=== PATIENT | female | born 1970 | race African-American/Black ===

== ENCOUNTER 2024-04-23 21:49 | Emergency (ER) | payer SELFPAY ==
--- NOTE | ~2024-04-23 | XR_ITS ---
CHEST RADIOGRAPH, PA AND LATERAL CLINICAL HISTORY: cp left side, sob . COMPARISON: 05/05/2017 TECHNIQUE: PA and lateral views of the chest. FINDINGS The left mid lung is partially obscured due to pacemaker generator. Wires project over the right atrium and right ventricle. The remainder of the cardiomediastinal silhouette is otherwise unremarkable. The lungs are clear. Visualized osseous structures and soft tissues are unremarkable. IMPRESSION: No focal infiltrate or effusion. Reviewed, dictated and finalized at location A. [employer]
--- OUTSIDE RECORDS SUMMARY | 2024-04-23 21:51 | XMS_ITS | Continuity of Care Document ---
Author Organization [facility] Address [address] [facility] [place] [address] Phone Care Team Providers Care Cutting Machine Fixer Name Role Phone Cezar Terrell MD Unavailable Unavailable Allergies, Adverse Reactions, Alerts Substance Reaction Status Criticality shellfish derived (moderate) Active No Informa tion Medications Medication Instructions Dosage Effective Dates (start - stop) Status Comments Vicodin ES 7.5 mg-750 mg tablet take 1 tablet by oral route every 6 hours - Active avoid driving or operate machines, max 3/24 hours Flexeril 10 mg tablet take 1 tablet (10MG) by oral route every bedtime 10 MG - Active Procedures Procedure Date OFFICE/OUTPATIENT VISIT, EST OFFICE/OUTPATIENT VISIT, EST PREV VISIT, NEW, AGE 40-64 Advance Directives Directive Yes / No Effective Date File Name No Information Encounters Encounter Description Practice Location Reason(s) For Visit Diagnoses Date Provider Providers Copied on Encounter [facility], [address] [place], [place], [id number], tel:[phone] [facility] No Information 3 Xander Robb. [address] [facility] [place], [id number] , [place]. tel:[phone] Referring Provider: Cezar Terrell, [address] [facility] [place], [place], [place], [id number]. tel:[phone] OFFICE/OUTPA TIENT VISIT, EST [facility], [address] [place], [id number], tel:[phone] [facility] chronic pain (chief complaint) Dietary surveillance and counselingCHRON IC PAIN NEC 3 Xander Robb. [address] [place], [place], [id number] , . tel:[phone] Referring Provider: Edwin Randolph [place], [id number]. tel:[phone] OFFICE/OUTPA TIENT VISIT, EST [facility], [address] [place], [place], [id number], tel:[phone] [facility] hyperglycemia (chief complaint)advanced practice provider sai pain (chief complaint)anxi ety (chief complaint) Dietary surveillance and counselingCHRON IC PAIN NECHyperglycemi aOther and unspecified hyperlipidemiaG eneralized anxiety disorder 3 Xander Barnes [address] [place], [place], [id number] , . tel:[phone] Referring Provider: Edwin Randolph [place], [place], [id number]. tel:[phone] PREV VISIT, NEW, AGE 40-64 [facility], [facility] [place], [id number], tel:[phone] [facility] Physical (chief complaint) Dietary surveillance and counselingRouti ne Medical ExamRoutine Medical Exam 3 Xander Barnes [address] [place], [place], [id number] , [place]. tel:[phone] Family History Family Member Type Diagnosis Age At Onset Father Problem (finding) Hypertension Sister Problem (finding) Stroke Father Problem (finding) Hyperlipidemia Father Problem (finding) Diabetes mellitus Father Problem (finding) Coronary artery disease Payers Payer name Insurance type Covered libertarian ID Authoriza tion(s) No Information Social History Type Description Quantity Date Captured Comments Sex Female Smoking Status No Information Chief Complaint And Reason For Visit No Information Plan Of Treatment Date Type Action Status Referral Referred To: Physical Therapy Ordered: Referral: Physical Therapy. Evaluate and treat. ordered History Of Present Illness Encounter Date Complaint History Of Prese nt Illness No Information Instructions Date Instruction Additional Infor nabeel Decrease caloric intake Related to Dietary surveillance counseling Dietary counseling Related to Di etary surveillance counseling Decrease caloric intake Related to Dietary surveillance counseling Dietary counseling Related to Di etary surveillance counseling Decrease caloric intake Related to Dietary surveillance counseling Dietary counseling Related to Di etary surveillance counseling Assessments Type Assessment Date No Information
--- OUTSIDE RECORDS SUMMARY | 2024-04-23 21:51 | XMS_ITS | Clinical Summary ---
Author Organization [facility] Address [address] [place] [address] Care Team Providers Care Bottom Sander Name Role Phone Sabina Riggs MD Unavailable Elizabeth Pollard MD Primary Care Provider [phone] Allergies Active Allergy Reactions Criticality Noted Date Comments Shellfish Allergy Anaphylaxis High 10/04/2016 Swelling tongue and all over Shellfish-Derived Products Anaphylaxis High 08/26/19 16 Swelling tongue and all over Medications sotalol (BETAPACE) 80 MG tablet Take 1 tablet by mouth 2 (two) times daily. Active metFORMIN (GLUCOPHAGE) 500 MG tablet Take 500 mg by mouth 2 (two) times daily. Active insulin glargine (LANTUS) 100 UNIT/ML injection (VIAL) Lantus (insulin glargine) solution 100 unit/mL; take 15 unit subcutaneous injection at bedtime; 0; -Aug-2015; Active Active furosemide (LASIX) 80 MG tablet Take 1 tablet by mouth daily. Active Magnesium Oxide 400 MG Cap Take 1 tablet by mouth 2 (two) times daily. Active albuterol sulfate HFA (PROAIR HFA) 108 (90 BASE) MCG/ACT inhaler Take 2 puffs by mouth 4 (four) times daily as needed. Active spironolactone 25 MG tablet Take 1 tablet by mouth daily. Active OMEPRAZOLE 20 MG capsule TAKE ONE CAPSULE BY MOUTH EVERY DAY 30 capsule 1 017 Active amlodipine 10 MG tablet Take 10 mg by mouth daily. 017 Active traMADol 50 MG tablet Take 50 mg by mouth 2 (two) times daily as needed for Pain. Active atorvastatin 20 MG tablet Take 20 mg by mouth daily. Active lisinopril 20 MG TABS 20 mg, hydrochlorothiazide 25 MG TABS 25 mg Take 1 tablet by mouth daily. Active rivaroxaban 20 MG Tab tablet Take 20 mg by mouth daily with supper. Take with food Active cyclobenzaprine 10 MG tablet Take 1 tablet (10 mg total) by mouth 3 (three) times daily as needed for Muscle Spasms. 16 tablet 019 Active hydrocodone-acetaminop hen (NORCO) 5-325 MG tablet Take 1-2 tablets by mouth every 6 (six) hours as needed for Pain. 16 tablet 019 Active promethazine 6.25 MG/5ML syrup TK 10 ML PO QID FOR 10 DAYS UTD 1 019 Active phenazopyridine 100 MG tablet TK 2 T PO TID 0 019 Active oseltamivir 75 MG capsule TK 1 C PO BID FOR 5 DAYS 0 019 Active montelukast 10 MG tablet Take 10 mg by mouth daily. 0 019 Active lisinopril 20 MG tablet Take 20 mg by mouth daily. 4 018 Active gabapentin 300 MG capsule TK 1 C PO TID UTD 9 019 Active vitamin D2, ergocalciferol, 84611 UNITS capsule Take 50,000 Units by mouth every 7 days. 9 019 Active carvedilol 3.125 MG tablet Take 3.125 mg by mouth 2 (two) times daily. 3 018 Active atorvastatin 40 MG tablet Take 40 mg by mouth nightly at bedtime. 9 019 Active Insulin Syringe-Needle U-100 (INSULIN SYRINGE .3CC/GX1/2 ) 29G X 1/2 0.3 ML Misc USE 1 PER DAY 1 019 Active B-D UF III MINI PEN NEEDLES 31G X 5 MM Misc daily. 0 019 Active diclofenac EC 50 MG tablet Take 1 tablet (50 mg total) by mouth 2 (two) times daily as needed. 20 tablet 019 Active diclofenac EC 75 MG tablet Take 1 tablet (75 mg total) by mouth 2 (two) times daily as needed. 30 tablet 019 Active acetaminophen 325 MG tablet Take 2 tablets (650 mg total) by mouth every 4 (four) hours as needed for Pain. 30 tablet 020 Active promethazine-codeine 6.25-10 MG/5ML syrupIndications:Cough Take 5 mLs by mouth every 4 (four) hours as needed for Cough. Indications: Cough 80 mL Active azithromycin 250 MG tablet Take 2 tablets by mouth on day one then 1 daily for four days. 6 tablet 020 Active guaifenesin-codeine (GUAIFENESIN AC) 100-10 MG/5ML syrupIndications:Cough Take 5 mLs by mouth every 4 (four) hours as needed for Cough. Indications: Cough 118 mL 020 Active ondansetron 4 MG disintegrating tablet Take 1 tablet (4 mg total) by mouth every 8 (eight) hours as needed for Nausea. 20 tablet 021 Active Active Problems Problem Noted Date Diagnosed Date HGSIL (high grade squamous i ntraepithelial lesion) on Pap smear of cervix 09/25/2018 Cervicalgia 06/13/2017 Atrial flutter (CMS/HCC HHS/HCC) Paroxysmal atrial fibrillation (CMS/HCC HHS/HCC) Sick sinus syndrome (CMS/HCC HHS/HCC) Supraventricular tachycardia (CMS/HCC HHS/HCC) CAD (coronary artery disease) Essential hypertension Hypercholesteremia Hyperlipidemia Family History Medical History Relation Comments Stent Cardiac Brother Diabetes Father Hypertension Father Diabetes Mother Heart Attack Mother Hypertension Mother CABG Sister 1 Stent Cardiac Sister 1 Stroke Sister 1 Valve Disease Sister 1 CABG Sister 2 Stent Cardiac Sister 2 Stroke Sister 2 Relation Status Comments Brother Father Mother Sister 1 Sister 2 Social History Tobacco Use Types Packs/Day Years Used Date Smoking Tobacco: Former Smokeless Tobacco: Never Alcohol Use Standard Drinks/Week Comments No 0 (1 standard drink = 0.6 oz pur e alcohol) Comments No Sex and Gender Information Value Date Recorded Sex Assigned at Not on file Legal Sex Female 10:24 PM CDT Gender Identity Not on file Sexual Orientation Not on file Occupation Industry Job Start Date Job End Date Not on file Not on file Not on file Not on file Last Filed Vital Signs Vital Sign Reading Time Taken Comments Blood Pressure 140/95 11/23/2020 8:34 PM CDT Pulse 84 11/23/2020 8:34 PM CDT Temperature 36.1 C (97 F) 11/23/2020 8:34 PM CDT Respiratory Rate 18 11/23/2020 8:34 PM CDT Oxygen Saturation 100% 11/23/2020 8:34 PM CDT Inhaled Oxygen Concentration - - Weight 121.6 kg (268 lb) 11/23/2020 8:34 PM CDT Height 157.5 cm (5' 2 ) 11/23/2020 8:34 PM CDT Body Mass Index 49.02 11/23/2020 8:34 PM CDT Plan of Treatment Health Maintenance Due Date Last Done Comments ASCVD LDL 1970 ASCVD Statin 1970 Cervical Cancer Screening Pap Smear (Age 30 to 64) Every 3 Years 1970 Colorectal Cancer Screening Colonoscopy (10 Years) 1970 Annual Physical 1973 Pneumococcal Vaccine: Pediatrics (0 to 5 Years) and At-Risk Patients (6 to 64 Years) (1 of 2 - PCV) 1976 Hepatitis C 1988 Hepatitis B Vaccines (1 of 3 - 19+ 3-dose series) 1989 Cervical Cancer Screening Pap with HPV Testing (Age 30 to 64) Every 5 Years 2000 Cervical Cancer Screening with HPV 2000 Mammogram Screening 2010 Zoster Vaccines (1 of 2) 2020 COVID-19 Vaccine (3 - season) 2023 07/17/2020, 06/24/2020 Influenza Adult (#1) 2023 01/19/2021, 01/06/2020, 05/07/2017, Additional history exists DTaP, Tdap and Td Vaccines (2 - Td or Tdap) 07/25/2024 07/25/2014 Meningococcal Vaccine Aged Out 06/24/2020, 021 No longer eligible based on patient's age to complete this topic Meningococcal B Vaccine Aged Out No l onger eligible based on patient's age to complete this topic RSV Immunizations Under 20 Months Aged Out No longer eligible based on patient's age to complete this topic Medical Devices Implanted Type Area Spa Attendant Device Identifier Shelf Expiration Date Model / Serial / Lot Atrial Lead-12/18/2012 Implanted:12/18 (Quantity not on file) Lead Implant [employer] [facility] DIV [employer] 1998 / [id number] / Description:Dr Giovanni Hassan Ventricular Lead-12/18/2012 Implanted:12/18 (Quantity not on file) Lead Implant [employer] [facility] [employer] [id number] / [id number] / Description:Dr Giovanni Hassan [employer] Pacemaker-2012 Implanted:12/18 (Quantity not on file) Pacemaker [employer] DIV [employer] 2209 / [id number] / Description:Dr Giovanni Hassan Insurance [facility] Advance Directives Documents on File Type Date Recorded 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
--- OUTSIDE RECORDS SUMMARY | 2024-04-23 21:51 | XMS_ITS | Encounter Summary ---
Author Organization [facility] Address [address] [place] [address] Care Team Providers Care Conduit Helper Name Role Phone Elizabeth Pollard MD Primary Care Provider [phone] Encounter Details Date Type Department Care Team (Late st Contact Info) Description 06/16/2020 Telephone [facility]ne[facility] Clinic [address] [facility] 3rd Floor [address] [place] [address] Roula Goel Social History Tobacco Use Types Packs/Day Years Used Date Smoking Tobacco: Former Cigarettes 0.1 13 1 993 - 2006 Smokeless Tobacco: Never Alcohol Use Standard Drinks/Week Comments Yes 0 (1 standard drink = 0.6 oz pur e alcohol) occassionally AUDIT-C Answer Date Recorded Q1: How often do you have a drink containing alc ohol? Monthly or less 05/30/2020 Q2: How many drinks containi ng alcohol do you have on a typical day when you are drinking? 1 or 2 05/30/2020 Q3: How often do you have si x or more drinks on one occasion? 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 Author CCM Chronic Pain Care Plan Chronic Care Management No Honey canela, Aleshia Olmedo, RN Note: Problem: Chronic Pain Goals: 1. Minimize further functional decline 2. Maximize quality of life 3. Control pain Strategies: - Activity/exercise program recommendation - Conservative stepwise pain medicine strategy with multi-disciplinary approach - Recommend healthy lifestyle strategies and compensatory methods as needed Reduce the likelihood of falling Lifestyle No Honey canela, Aleshia Olmedo RN Note: Below are four things you can do to prevent falls: Begin an exercise program to improve your leg strength & balance Ask your doctor or pharmacist to review your medicines Get annual eye check-ups & update your eyeglasses Make your home safer by: Removing clutter & tripping hazards Putting railings on all stairs & adding grab bars in the bathroom Having good lighting, especially on stairs Contact your local community or [facility] for information on exercise, fall prevention programs, or options for improving home safety. documented as of this encounter Visit Diagnoses Not on filedocumented in this encounter Additional Health Concerns Infection Onset Date Last Indicated Resolved Time COVID: Suspected 03/22/2021 03/22/2021 04/05/2021 3:05 AM ROLLER SKATES ASSEMBLER documented as of this encounter Care Teams Conduit Helper Relationship Specialty Start Date End Date Elizabeth Pollard MD [address] [facility] [place] [address] PCP - General Internal Medicine 09/07/19 documented as of this encounter
--- OUTSIDE RECORDS SUMMARY | 2024-04-23 21:51 | XMS_ITS | Clinical Summary ---
Author Organization [facility] Address [address] [place] [address] Care Team Providers Care Sugar Grinder Name Role Phone Matt Barnes MD Primary Care Provider [phone] Source Comments [facility],non-owned Affiliates and Associated Physician Practices is amultiple site organization consisting of ambulatory clinics and hospital sitesin [place], [place] and [place]. This disclosure is being madepursuant to the Care Everywhere program and may not contain all information available regarding this patient. Last updated 17.[facility] Allergies Active Allergy Reactions Criticality Noted Date Comments Shellfish Allergy Anaphylaxis High 10/04/2016 Swelling tongue and all over Medications * Be aware that medications may not be up to date on this document. Alwaysverify current medications with the patient. Medication Sig Dispensed Refills Start Date End Date Status rivaroxaban (XARELTO) 10 MG tablet Take 10 mg by mouth daily with dinner. 10/04/2016 Active lisinopril (PRINIVIL; ZESTRIL) 10 MG tablet Take 10 mg by mouth DAILY. 09/27/2016 Active spironolactone (ALDACTONE) 25 MG tablet Take 25 mg by mouth DAILY. 09/27/2016 Active atorvastatin (LIPITOR) 40 MG tablet Take 40 mg by mouth DAILY. 09/27/2016 Active potassium chloride SA (MICRO-K8) 8 MEQ capsule Take 10 mg by mouth DAILY. 09/27/2016 Active sotalol (BETAPACE) 80 MG tablet Take 80 mg by mouth BID. 09/27/2016 Active metFORMIN (GLUCOPHAGE) 500 MG tablet Take 500 mg by mouth 2 times daily with morning and evening meal. 09/27/2016 Active furosemide (LASIX) 40 MG tablet Take 40 mg by mouth DAILY. 09/27/2016 Active omeprazole EC (PRILOSEC OTC) 20 MG tablet Take 20 mg by mouth DAILY. 09/27/2016 Active insulin glargine (LANTUS) vial Inject 12 Units subcutaneously. 09/27/2016 Active amLODIPine (NORVASC) 10 MG tablet Take 10 mg by mouth DAILY. 09/27/2016 Active albuterol HFA (PROAIR HFA) 108 (90 BASE) MCG/ACT inhaler Inhale 2 puffs by mouth q6h PRN (Wheezing). 06/13/2017 Active traMADol (ULTRAM) 50 MG tablet Take 50 mg by mouth q6h PRN (Pain). 06/13/2017 Active ibuprofen (MOTRIN) 600 MG tablet Take 1 tablet by mouth every 6 hours as needed for Pain 50 tablet 09/10/2017 Active Additional Information Patient not taking.Reported on 04/13/2019 carvedilol (COREG) 6.25 MG tablet Take 6.25 mg by mouth 2 times daily with morning and evening meal Active cyclobenzaprine (FLEXERIL) 10 MG tablet Take 10 mg by mouth 3 times daily as needed for Muscle Spasms Active gabapentin (NEURONTIN) 400 MG capsule Take 400 mg by mouth 3 times daily Active magnesium oxide (MAGOX 400) 400 (241.3 Mg) MG tablet Take 400 mg by mouth once daily Active cyclobenzaprine (FLEXERIL) 10 MG tablet Take 1 tablet by mouth 3 times daily as needed for Muscle Spasms 15 tablet 04/28/2019 Active Active Problems Problem Noted Date Diagnosed Date Leiomyoma of uterus 06/13/2017 Excessive and frequent menstruation with regular cycle 06/13/2017 Cervicalgia 06/13/2017 HGSIL (high grade squamous i ntraepithelial lesion) on Pap smear of cervix Social History Tobacco Use Types Packs/Day Years Used Date Smoking Tobacco: Former Cigarettes Q uit: 2005 Smokeless Tobacco: Never Alcohol Use Standard Drinks/Week Comments No 0 (1 standard drink = 0.6 oz pur e alcohol) Sex and Gender Information Value Date Recorded Sex Assigned at Not on file Gender Identity Not on file Sexual Orientation Not on file Last Filed Vital Signs Vital Sign Reading Time Taken Comments Blood Pressure 137/74 04/28/2019 3:09 AM NON DESTRUCTIVE EVALUATION TECHNICIAN Pulse 82 04/28/2019 3:09 AM NON DESTRUCTIVE EVALUATION TECHNICIAN Temperature 36.4 C (97.6 F) 04/28/2019 3:09 AM NON DESTRUCTIVE EVALUATION TECHNICIAN Respiratory Rate 18 04/28/2019 3:09 AM NON DESTRUCTIVE EVALUATION TECHNICIAN Oxygen Saturation 99% 04/28/2019 3:09 AM NON DESTRUCTIVE EVALUATION TECHNICIAN Inhaled Oxygen Concentration - - Weight 123.8 kg (273 lb) 04/13/2019 10:57 AM NON DESTRUCTIVE EVALUATION TECHNICIAN Height 157.5 cm (5' 2 ) 04/13/2019 10:57 AM NON DESTRUCTIVE EVALUATION TECHNICIAN Body Mass Index 49.93 04/13/2019 10:57 AM NON DESTRUCTIVE EVALUATION TECHNICIAN Plan of Treatment Health Maintenance Due Date Last Done Comments COLOGUARD (AGES 45-75) - COLON CA SCREENING 1970 COLON MONITORING 1970 COLONOSCOPY - COLON CA SCREENING 1970 CT COLONOGRAPHY - COLON CA SCREENING 1970 Colorectal Cancer Screening 1970 FIT - COLON CA SCREENING 1970 FLEX SIG - COLON CA SCREENING 1970 MAMMOGRAM 1970 PAP SMEAR 1970 HIV SCREENING 1985 HEPATITIS C SCREENING 03/28/1988 DTAP/TDAP/TD VACCINES (1 - Tdap) 1989 HEPATITIS B VACCINE (1 of 3 - 19+ 3-dose series) 1989 PNEUMOCOCCAL VACCINE 50+ (1 of 1 - PCV) 2020 ZOSTER VACCINE (1 of 2) 2020 SCREENING FOR DIABETES 04/28/2022 0, 09/10/2017, 09/10/2017, Additional history exists COVID-19 VACCINE ( - 2023- season) 2023 INFLUENZA VACCINE (#1) 2023 DEPRESSION SCREENING 03/18/2024 HIB VACCINE Aged Out No longer eligi ble based on patient's age to complete this topic HPV VACCINE Aged Out No longer eligi ble based on patient's age to complete this topic MENINGOCOCCAL (Group B) VACCINE Aged Out No longer eligible based on patient's age to complete this topic MENINGOCOCCAL VACCINE Aged Out No bret zoey eligible based on patient's age to complete this topic PNEUMOCOCCAL VACCINE Aged Out No long er eligible based on patient's age to complete this topic Procedures Procedure Name Priority Date/Time Associated Diagnosis Comments BASIC METABOLIC PANEL (CALCIUM TOTAL) STAT 04/28/2019 12:48 AM NON DESTRUCTIVE EVALUATION TECHNICIAN from Last 3 Months or Most Recently Relevant to Health Maintenance Results * (ABNORMAL) BASIC METABOLIC PANEL (CALCIUM TOTAL) (04/28/2019 12:48 AM NON DESTRUCTIVE EVALUATION TECHNICIAN) Glucose 397(H) 70 - 105 mg/dL 04/28/2019 1:12 AM NON DESTRUCTIVE EVALUATION TECHNICIAN [facility] Sodium 137 136 - 145 mmol/L 04/28/2019 1:12 AM NON DESTRUCTIVE EVALUATION TECHNICIAN [facility] Potassium 3.9 3.5 - 5.1 mmol/L 04/28/2019 1:12 AM [facility] Chloride 102 98 - 107 mmol/L 04/28/2019 1:12 AM [facility] CO2 24 23 - 31 mmol/L 04/28/2019 1:12 AM [facility] Calcium 9.4 8.4 - 10.4 mg/dL 04/28/2019 1:12 AM [facility] Anion Gap 11 8 - 16 mmol/L 04/28/2019 1:12 AM [facility] BUN 9 7 - 18.7 mg/dL 04/28/2019 1:12 AM [facility] Creatinine 0.92 0.57 - 1.11 mg/dL 04/28/2019 1:12 AM [facility] eGFR by MDRD >60 >60 mL/min/1.7 3m2 04/28/2019 1:12 AM [facility] eGFR by MDRD >60 >60 mL/min/1.7 3m2 04/28/2019 1:12 AM [facility] Blood BLOOD SPECIMEN / Unknown Venipuncture / Unknown 04/28/2019 12:48 AM NON DESTRUCTIVE EVALUATION TECHNICIAN 04/28/2019 12:58 AM NON DESTRUCTIVE EVALUATION TECHNICIAN Del Price PA-C LAB - CHEMISTRY ORD ERABLES [facility] [address] [place] [address] from Last 3 Months or Most Recently Relevant to Health Maintenance Care Teams Sugar Grinder Relationship Specialty Start Date End Date Matt Barnes MD PCP - General 09/16/17
--- OUTSIDE RECORDS SUMMARY | 2024-04-23 21:51 | XMS_ITS | Referral Summary ---
Author Organization [facility] Address [address] [place] [id number] Care Team Providers Care Tray Filler Name Role Phone Elizabeth Pollard MD Primary Care Provider [phone] Allergies Active Allergy Reactions Criticality Noted Date Comments Empagliflozin Hives Medium 10/21/2020 Shellfish Anaphylaxis High 10/04/2016 Diffuse swelling and to tongue. Medications alcohol swabs pads, medicatedIndicati ons:Type 2 diabetes mellitus without complication, with long-term current use of insulin ([facility]) ([facility]) Use to swabs daily to clean area 200 each 5 1 Active blood-glucose meter miscIndications:T ype 2 diabetes mellitus without complication, with long-term current use of insulin ([facility]) ([facility]) Test blood glucose twice a day 1 each 1 Active ergocalciferol (VITAMIN D) 50,000 unit capsuleIndication s:Vitamin D Deficiency Take 1 capsule (50,000 Units total) by mouth every 7 days On Fridays 12 capsule 1 2 Active TRUEplus Pen Needle 31 gauge x 3/16 needle USE DIRECTED TWO TIMES A DAY 2 Active albuterol HFA (PROVENTIL HFA,VENTOLIN HFA,PROAIR HFA) 90 mcg/actuation inhaler Inhale 2 puffs every 6 (six) hours as needed for wheezing 1 each 3 2 Active ezetimibe (ZETIA) 10 mg tablet Take 1 tablet (10 mg total) by mouth daily 90 tablet 1 2 Active fluticasone propionate (FLONASE) 50 mcg/actuation nasal spray Administer 1 spray into each nostril daily 1 each 5 2 Active furosemide (LASIX) 80 mg tabletIndications :Edema Take 1 tablet (80 mg total) by mouth every morning 90 tablet 1 2 Active gabapentin (NEURONTIN) 600 mg tabletIndications :Neuropathic Pain Take 1 tablet (600 mg total) by mouth 2 (two) times a day 180 tablet 1 2 Active insulin glargine (LANTUS) 100 unit/mL (3 mL) pen for injectionIndicati ons:Type 2 diabetes mellitus with peripheral neuropathy ([facility]) Inject 38 Units under the skin 2 (two) times a day 30 mL 3 2 Active lisinopril-hydroC HLOROthiazide (ZESTORETIC) 20-25 mg per tabletIndications :Hypertension, essential Take 1 tablet by mouth nightly 90 tablet 1 2 Active magnesium oxide 400 mg magnesium capsule Take 1 tablet by mouth 2 (two) times a day 180 capsule 1 2 Active metFORMIN (GLUCOPHAGE) 500 mg tabletIndications :type 2 diabetes mellitus Take 1 tablet (500 mg total) by mouth 2 (two) times a day with meals 180 tablet 1 2 Active metoclopramide (REGLAN) 5 mg tablet Take 1 tablet (5 mg total) by mouth 2 (two) times a day 10 tablet 2 Active lancets miscIndications:T ype 2 diabetes mellitus without complication, with long-term current use of insulin ([facility]) ([facility]) Use two lancet daily to check blood glucose 200 each 5 2 Active omeprazole (PriLOSEC) 20 mg capsuleIndication s:Treatment of Non-Bleeding Gastric Disorder Take 1 capsule (20 mg total) by mouth every morning 90 capsule 2 Active rivaroxaban (XARELTO) 20 mg tabletIndications :atrial fibrillation Take 1 tablet (20 mg total) by mouth every morning 90 tablet 2 Active rosuvastatin (CRESTOR) 40 mg tablet Take 1 tablet (40 mg total) by mouth every morning 90 tablet 1 2 Active sotaloL (BETAPACE) 80 mg tabletIndications :Prevention of Recurrent Atrial Fibrillation Take 1 tablet (80 mg total) by mouth every 12 (twelve) hours 180 tablet 1 2 Active spironolactone (ALDACTONE) 25 mg tabletIndications :chronic heart failure,hypertens ion,in the afternoon Take 1 tablet (25 mg total) by mouth daily 90 tablet 1 2 Active sucralfate (CARAFATE) 1 gram tablet Take 1 tablet (1 g total) by mouth 4 (four) times a day 120 tablet 5 2 Active SUMAtriptan (IMITREX) 50 mg tablet Take 1 tablet (50 mg total) by mouth once as needed for migraine for up to 1 dose May repeat dose once in 2 hours if no relief. Do not exceed 2 doses in 24 hours. 9 tablet 2 2 Active Active Problems Problem Noted Date Diagnosed Date Chronic diastolic (congestive) heart failure Assessment & Plan (12/14/2021 11:28 AM CDT): Maintained on diuretics and low-salt diet and followed by the transition mgr Bradycardia 09/28/2021 Overview (09/28/2021): Added automatically from request for surgery [id number] Chronic pain of left thumb 01/19/2021 Assessment & Plan (01/19/2021 9:01 AM CDT): Patient has pain at the base of the left thumb which could be secondary to arthritis or tendinitis. I recommended that she uses a brace and if the symptoms persist then she may benefit from steroid injection. Patient will try the brace 1st. She will call if she has persistent symptoms. Acute nonintractable headache 11/28/2020 Abscess 10/19/2020 Assessment & Plan (10/19/2020 9:12 AM CDT): Patient with small abscess on the left breast area. We will start her on Augmentin 875 mg twice daily for 7 days and she was advised to call in few days if it persists or if it gets worse Colitis 07/19/2020 Assessment & Plan (07/19/2020 9:23 AM CDT): Patient will be started on Flagyl 500 mg 3 times daily for 7 days and she was advised to start on high-fiber diet and soft diet and advance her diet as tolerated and she will call for persistent symptoms Abnormal uterine bleeding 04/22/2020 Overview (04/22/2020): Added automatically from request for surgery [id number] Fibroids 04/22/2020 Overview (04/22/2020): Added automatically from request for surgery [id number] Foot callus 04/06/2020 Assessment & Plan (04/06/2020 8:37 AM HARPSICHORD MAKER): Patient has small callus in the plantar aspect of left foot. It was treated with liquid nitrogen. She will call back in 1 week if it is not resolved. We will make a referral to see a operating system programmer Oligomenorrhea 03/28/2020 Overview (03/28/2020): Patient with 2-3 cycles in the last year. Reports several years of night sweats and hot flashes. We discussed that the average age of menopause is 51. Suspect oligomenorrhea likely secondary to anovulatory cycles. Plan on endometrial biopsy for further evaluation. Acute low back pain due to trauma 03/21/2020 CAD (coronary artery disease) 03/21/2020 Assessment & Plan (07/10/2021 8:46 AM CDT): Patient is asymptomatic. Continue current medications. Followed by the transition mgr Assessment & Plan (01/19/2021 8:59 AM CDT): Asymptomatic. Continue current medications. Follow up with the transition mgr Assessment & Plan (10/19/2020 9:12 AM CDT): Patient is asymptomatic and followed by the transition mgr Assessment & Plan (07/19/2020 9:22 AM CDT): Managed by the transition mgr Assessment & Plan (04/06/2020 8:08 AM HARPSICHORD MAKER): Managed by the transition mgr Atypical chest pain 03/21/2020 Femoroacetabular impingement of left hip 021 Insect stings 03/21/2020 Pain of lower extremity 03/21/2020 Presence of permanent cardiac pacemaker 03/21/19 Sick sinus syndrome ([facility]) 03/21/2020 Assessment & Plan (07/10/2021 8:47 AM CDT): Status post pacemaker placement Assessment & Plan (01/19/2021 9:00 AM CDT): Status post pacemaker placement and followed by the transition mgr Supraventricular tachycardia 03/21/2020 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 She will continue tramadol and Flexeril as needed. Will make a referral to see pain specialist for further evaluation. Assessment & Plan (09/28/2019 11:19 AM CDT): The patient cannot take NSAIDs because she is on Xarelto. We will start her on tramadol 50 mg 3 times daily p.r.n. and she was advised to take it for pain of 7 over 10 or more. Assessment & Plan (09/21/2019 4:28 PM CDT): Patient seems to be stable at this point. She can take Tylenol as needed. She takes Flexeril as needed. BMI 45.0-49.9, adult ([facility]) 09/21/2019 Assessment & Plan (07/10/2021 8:46 AM CDT): BMI Follow-up includes: nutrition counseling. The patient was advised to exercise 5 times a week for 30 minutes each time. We discussed low calorie diet. Discussed lifestyle changes. Assessment & Plan (10/19/2020 9:12 AM CDT): BMI Follow-up includes: nutrition counseling. The patient was advised to exercise 5 times a week for 30 minutes each time. We discussed low calorie diet. Discussed lifestyle changes. Assessment & Plan (07/19/2020 9:22 AM CDT): BMI Follow-up includes: nutrition counseling. The patient was advised to exercise 5 times a week for 30 minutes each time. We discussed low calorie diet. Discussed lifestyle changes. Assessment & Plan (04/06/2020 8:06 AM HARPSICHORD MAKER): BMI Follow-up includes: nutrition counseling. The patient was advised to exercise 5 times a week for 30 minutes each time. We discussed low calorie diet. Discussed lifestyle changes. Assessment & Plan (01/06/2020 9:10 AM CDT): BMI Follow-up includes: nutrition counseling. The patient was advised to exercise 5 times a week for 30 minutes each time. We discussed low calorie diet. Discussed lifestyle changes. Assessment & Plan (09/28/2019 11:19 AM CDT): BMI Follow-up includes: nutrition counseling. The patient was advised to exercise 5 times a week for 30 minutes each time. We discussed low calorie diet. Discussed lifestyle changes. Assessment & Plan (09/21/2019 4:29 PM CDT): BMI Follow-up includes: nutrition counseling. The patient was advised to exercise 5 times a week for 30 minutes each time. We discussed low calorie diet. Discussed lifestyle changes. HGSIL (high grade squamous i ntraepithelial lesion) on Pap smear of cervix 09/25/2018 Overview (04/17/2020): -2018 endometrial biopsy with ANAHY III -Referred to [facility] and now s/p EUA, CKC and EMBx in OR in 2018 with benign pathology 03/2019 -> cotest negative Cervicalgia 06/13/2017 Assessment & Plan (01/19/2021 9:00 AM CDT): Patient was advised to follow-up with pain management Assessment & Plan (10/19/2020 9:12 AM CDT): Followed by pain management Leiomyoma of uterus 06/13/2017 Overview (06/17/2020): -Enlarged uterus on initial bimanual exam. Patient with chronic low abdominal pain. -Formal pelvic US 04/11: enlarged uterus with several fibroids, one of which is predominantly submucous. -04/11/20: insufficient sample given stenosis and difficult biopsy -05/30/20: EUA/Hsc/D&C - normal cavity noted with no submucosal fibroid. D&C pathology with no evidence of malignancy or hyperplasia. -06/14: Presented to [facility] with heavy bleeding. Hgb 12. Given DMPA and Rx for TXA. -06/17: Today we reviewed her pathology from recent D&C. We also discussed her options for the AUB, including continuing DMPA, hormonal IUD insertion, UAE, and hysterectomy. We discussed that given her fibroids, an IUD may be technically challenging to insert, and may have a higher chance of expulsion (even though her cavity appeared normal, it may be distorted from the fibroids). We discussed a UAE would potentially be safer than a hysterectomy, and the patient is interested in pursuing the UAE option. We discussed she will have to meet with the interventional radiologist to determine if she can have this done. She is amenable. PLAN: -Referral to IR placed for UAE -No active bleeding today. Patient to continue DMPA at this time (next due in 3 months). -Discussed that she can use the TXA if bleeding acutely becomes heavy -Will order HA1c and TSH today in preparation for possible procedure (UAE vs hysterectomy). -Pt will need pre-operative clearance if proceeds to OR -RTC time pending IR evaluation/recommendations. Assessment & Plan (07/29/2020 10:30 AM CDT): POD#1 bilat uterine artery ablation Pain control- dilaudid BEEF CATTLE GRAZIER, transition to orals as able Add toradol Cont flexeril Abx ppx cipro plan 10d total High risk medication use iv dilaudid Chronic ethmoidal sinusitis 01/24/2017 Gastroesophageal reflux disease without esophagi tis 01/24/2017 Assessment & Plan (07/10/2021 8:46 AM CDT): Patient is maintained on Prilosec. She continues to be symptomatic. We discussed avoidance of food that triggers the symptoms. Will make a referral to see the brim buster [facility] current use of insulin ([facility]) 01/24 Morbid (severe) obesity due to excess calories 1 03/26/2016 Assessment & Plan (01/19/2021 9:00 AM CDT): BMI Follow-up includes: nutrition counseling. The patient was advised to exercise 5 times a week for 30 minutes each time. We discussed low calorie diet. Discussed lifestyle changes. Thalassemia 06/29/2014 Hypertension, essential Assessment & Plan (12/14/2021 11:27 AM CDT): Continue current medications. Discussed low-salt diet. Discussed exercise on regular basis. Will continue to monitor Assessment & Plan (07/10/2021 8:47 AM CDT): Continue current medications. Discussed low-salt diet. Discussed exercise on regular basis. Will continue to monitor Assessment & Plan (07/29/2020 10:30 AM CDT): Restart lisinopril today Resume hctz/aldactone on dc Assessment & Plan (07/19/2020 9:19 AM CDT): Continue current medications. Discussed low-salt diet. Discussed exercise on regular basis. Will continue to monitor Assessment & Plan (04/06/2020 8:05 AM HARPSICHORD MAKER): Continue current medications. Discussed low-salt diet. Discussed exercise on regular basis. Will continue to monitor Assessment & Plan (01/06/2020 9:10 AM CDT): Continue current medications. Discussed low-salt diet. Discussed exercise on regular basis. Will continue to monitor Assessment & Plan (09/21/2019 4:25 PM CDT): Continue current medications. Discussed low-salt diet. Discussed exercise on regular basis. Will continue to monitor A-fib (CMS/HCC) Assessment & Plan (12/14/2021 11:27 AM CDT): She is in normal sinus rhythm and maintained on Xarelto and followed by the transition mgr Assessment & Plan (07/10/2021 8:45 AM CDT): Continue Xarelto. Rate is controlled. She is in normal sinus rhythm. No side effects with medications. Followed by the transition mgr Assessment & Plan (01/19/2021 8:59 AM CDT): Patient is maintained on Xarelto. She is in normal sinus rhythm. No bleeding or bruising Assessment & Plan (10/19/2020 9:11 AM CDT): Rate is controlled and she is in normal sinus rhythm and maintained on Xarelto and followed by the transition mgr Assessment & Plan (07/29/2020 10:31 AM CDT): NSR on arrival. Follows with OSH Cardiology. [id number] 3. Resume xarelto in coming day(s) Hold sotalol temporarily, repeat EKG pending (avoid qt proloncation w FQ) Assessment & Plan (07/19/2020 9:20 AM CDT): Continue Xarelto on follow-up with transition mgr Assessment & Plan (04/06/2020 8:06 AM HARPSICHORD MAKER): Patient maintained on Xarelto and followed by the transition mgr Assessment & Plan (01/06/2020 9:10 AM CDT): Rate is controlled and she is maintained on Xarelto and followed by the transition mgr Assessment & Plan (09/28/2019 11:18 AM CDT): Continue Xarelto and she is followed by the transition mgr Assessment & Plan (09/21/2019 4:25 PM CDT): Patient is in normal sinus rhythm and rate is controlled. She is maintained on sotalol and Xarelto Type 2 diabetes mellitus with peripheral neuropa thy Assessment & Plan (12/14/2021 11:27 AM CDT): Continue current medications and advised to have the blood work done as soon as possible and advised to have annual eye exam Assessment & Plan (07/10/2021 8:45 AM CDT): Continue current medications, discussed low carbohydrate diet, advised to exercise on regular basis, advised to have annual eye exam. We will continue to monitor. Assessment & Plan (01/19/2021 9:01 AM CDT): Continue current medications, discussed low carbohydrate diet, advised to exercise on regular basis, advised to have annual eye exam. We will continue to monitor. Assessment & Plan (10/19/2020 9:11 AM CDT): Diabetes is not controlled. She will continue with current medications. We will add Jardiance 25 mg daily for better control of diabetes and cardiac protection. Side effects were explained Assessment & Plan (07/28/2020 9:13 AM CDT): Last A1c 8.2% (06/17/20). Home regimen metformin, lantus 35U BID. - dose-reduced regimen of lantus 25U BID + MDSSI - DM diet Assessment & Plan (07/19/2020 9:20 AM CDT): Increase Lantus to 35 units twice daily and we discussed the importance of low calorie and carb diet and weight loss. Patient was advised to have annual eye exam. Will order new Accu-Chek machine. She was advised to check her sugar twice daily and call us with readings in 1 week. Assessment & Plan (04/06/2020 8:06 AM HARPSICHORD MAKER): Continue current medications, discussed low carbohydrate diet, advised to exercise on regular basis, advised to have annual eye exam. We will continue to monitor. Assessment & Plan (01/06/2020 9:10 AM CDT): Increase Lantus to 34 units b.i.d. and continue other medications. We discussed low carb diet. Pamphlets were given. Discussed the importance of weight loss. Repeat test in few months. Assessment & Plan (09/28/2019 11:18 AM CDT): Blood sugar is not controlled. We discussed the importance of diet and exercise. Pamphlets were given. We will increase Lantus to 30 units b.i.d.. Will repeat A1c before next visit. Assessment & Plan (09/21/2019 4:26 PM CDT): We discussed the importance of diet. Patient cannot exercise because of chronic pain and numbness in the lower extremities. She uses a walker for ambulation. Diabetic diet instructions were given. Pamphlets were given. Patient was advised to check her sugar twice daily. Patient was advised to have annual eye exam. Will obtain blood work and see her again for follow-up in couple of weeks. Dyslipidemia Assessment & Plan (12/14/2021 11:28 AM CDT): Controlled on current medications. Continue low-fat diet. Will continue to monitor . Assessment & Plan (07/10/2021 8:45 AM CDT): Controlled on current medications. Continue low-fat diet. Will continue to monitor . Assessment & Plan (01/19/2021 9:00 AM CDT): Controlled on current medications. Continue low-fat diet. Will continue to monitor . Assessment & Plan (10/19/2020 9:11 AM CDT): Lipid profile is elevated. We will add Zetia 10 mg daily and continue Crestor 40 mg daily. We discussed the importance of weight loss with diet and exercise Assessment & Plan (07/28/2020 9:15 AM CDT): - home crestor Assessment & Plan (07/19/2020 9:20 AM CDT): Controlled on current medications. Continue low-fat diet. Will continue to monitor . Assessment & Plan (04/06/2020 8:06 AM HARPSICHORD MAKER): Controlled on current medications. Continue low-fat diet. Will continue to monitor . Assessment & Plan (01/06/2020 9:10 AM CDT): Controlled on current medications. Continue low-fat diet. Will continue to monitor . Assessment & Plan (09/28/2019 11:19 AM CDT): Will stop atorvastatin and start Crestor 40 mg q.h.s. and continue to monitor. Assessment & Plan (09/21/2019 4:26 PM CDT): Controlled on current medications. Continue low-fat diet. Will continue to monitor . Peripheral polyneuropathy Assessment & Plan (07/10/2021 8:46 AM CDT): Controlled on gabapentin Assessment & Plan (10/19/2020 9:11 AM CDT): Controlled on gabapentin Assessment & Plan (07/19/2020 9:21 AM CDT): Controlled on gabapentin Assessment & Plan (04/06/2020 8:06 AM HARPSICHORD MAKER): Secondary to diabetes and controlled on gabapentin Assessment & Plan (09/28/2019 11:19 AM CDT): Continue gabapentin Assessment & Plan (09/21/2019 4:26 PM CDT): Increase gabapentin to 600 mg t.i.d. Pulmonary nodule Assessment & Plan (01/19/2021 9:00 AM CDT): Patient has granuloma Assessment & Plan (10/19/2020 9:11 AM CDT): Granuloma Assessment & Plan (04/06/2020 8:06 AM HARPSICHORD MAKER): CT scan of the lungs showed granuloma Assessment & Plan (10/29/2019 2:02 PM CDT): CT of the chest showed granuloma and no further testing is needed Assessment & Plan (09/28/2019 11:19 AM CDT): Patient has granuloma with no change Assessment & Plan (09/21/2019 4:27 PM CDT): Patient has incidental finding of pulmonary nodule on CT of the cervical spine. She is ex-smoker. Will obtain CT of the chest for further evaluation. Resolved Problems Problem Noted Date Diagnosed Date Resolved Date Excessive and frequent menst ruation with regular cycle 06/13/2017 03/28/2020 Immunizations Name Administration Dates Next Due Influenza, Quadrivalent, Spl it, Preservative Free, Intramuscular 12/14/2021,01/19/2021,01/06/2020,05/07 Influenza, Unspecified 06/29/2014 Meningococcal ACWY, Unspecified 06/24/2020,05/27 Moderna SARS-CoV-2 Monovalen t Vaccination (12+ YRS) 07/17/2020,06/24/2020 Tdap 07/25/2014 Social History Tobacco Use Types Packs/Day Years Used Date Smoking Tobacco: Former Cigarettes 0.1 13 1 993 - 2006 Smokeless Tobacco: Never Tobacco Cessation:Counseling Given: No Alcohol Use Standard Drinks/Week Comments Yes 0 (1 standard drink = 0.6 oz pur e alcohol) occassionally AUDIT-C Answer Date Recorded Q1: How often do you have a drink containing alcohol? Never 12/14/2021 Q2: How many drinks containi ng alcohol do you have on a typical day when you are drinking? Patient does not drink Q3: How often do you have si x or more drinks on one occasion? Never 12/14/2021 PHQ-2 Answer Date Recorded PHQ-2 Total Score (If total score is 3 or more points, staff should administer the PHQ-9) 3 12/14/2021 Comments No Sex and Gender Information Value Date Recorded Sex Assigned at Not on file Legal Sex Female 7:11 PM HARPSICHORD MAKER Gender Identity Not on file Sexual Orientation Not on file Last Filed Vital Signs Vital Sign Reading Time Taken Comments Blood Pressure 132/68 12/14/2021 10:28 AM CDT Pulse 68 12/14/2021 10:28 AM CDT Temperature 36.4 C (97.5 F) 12/14/2021 10:28 AM CDT Respiratory Rate 20 12/14/2021 10:2 8 AM CDT Oxygen Saturation 96% 12/14/2021 10: 28 AM CDT Inhaled Oxygen Concentration - - Weight 118.6 kg (261 lb 6.4 oz) 022 10:28 AM CDT Height 157.5 cm (5' 2 ) 12/14/2021 10:2 8 AM CDT Body Mass Index 47.81 12/14/2021 10:28 AM CDT Plan of Treatment Not on file Goals Goal Patient Goal Type Associated Problems Recent Progress Patient-Stated? Author CCM Chronic Pain Care Plan Chronic Care Management No Aleshia Villanueva, EARLE Note: Problem: Chronic Pain Goals: 1. Minimize further functional decline 2. Maximize quality of life 3. Control pain Strategies: - Activity/exercise program recommendation - Conservative stepwise pain medicine strategy with multi-disciplinary approach - Recommend healthy lifestyle strategies and compensatory methods as needed Reduce the likelihood of falling Lifestyle Aleshia Hughes, EARLE Note: Below are four things you can [...] on stairs Contact your local community or [facility] for information on exercise, fall prevention programs, or options for improving home safety. Medical Devices Implanted Type Area Human Relations Manager Device Identifier Shelf Expiration Date Model / Serial / Lot [employer] Assurity Mri [id number] Chamber Is-1 Connector Thk6mm Pacemaker [id number] - [id number] - [id number] Implanted:Qty: 1 on 10/03/2021 by Giovanni Hassan MD at [facility] Pacemaker Left: Chest Wall [employer] [id number] 03/17/2023 [id number] / [id number] / [facility] Accolo S620 Embosphere Saline Syringe Compressible Nonaggregate Highly Target - [id number] Implanted:Qty: 1 on 07/28/2020 at [facility] [employer] 03/11/2023 [id number] / / [id number] [facility] Accolo S620 Embosphere Saline Syringe Compressible Nonaggregate Highly Target - [id number] Implanted:Qty: 1 on 07/28/2020 at [facility] [employer] 03/11/2023 S620 / / [id number] [facility] Acc[employer] S620 Embosphere Saline Syringe Compressible Nonaggregate Highly Target - [id number] Implanted:Qty: 1 on 07/28/2020 at [facility] [employer] 03/11/2023 S620 / / [id number] [facility] [employer] S620 Embosphere Saline Syringe Compressible Nonaggregate Highly Target - [id number] Implanted:Qty: 1 on 07/28/2020 at [facility] [employer] 07/15/2022 S620 / / [id number] -[id number] [facility] [employer] S620 Embosphere Saline Syringe Compressible Nonaggregate Highly Target - [id number] Implanted:Qty: 1 on 07/28/2020 at [facility] [employer] 04/25/2023 S620 / / [id number] -[id number] [facility] [employer] S620 Embosphere Saline Syringe Compressible Nonaggregate Highly Target - [id number] Implanted:Qty: 1 on 07/28/2020 at [facility] [employer] 04/25/2023 S620GH / / [id number] Explanted Type Area Human Relations Manager Device Identifier Shelf Expiration Date Model / Serial / Lot Pacemaker Explanted:Qty: 1 on 10/03/2021 by Giovanni Hassan MD at [facility] Chest Description:[facility] Procedures Procedure Name Priority Date/Time Associated Diagnosis Comments EGFR Routine 07/10/2021 9:13 AM CDT Fibroids DIABETIC EYE EXAM Routine 01/11/2021 DIABETIC FOOT EXAM Routine 10/19/2020 ALBUMIN CREATININE RATIO, URINE Routine 10/12/2020 9:45 AM CDT Type 2 diabetes mellitus with peripheral neuropathy (CMS/HCC) (HCC) HEMOGLOBIN A1C Routine 10/12/2020 9:41 AM CDT Type 2 diabetes mellitus with peripheral neuropathy (CMS/HCC) (HCC) LIPID PANEL Routine 10/12/2020 9:41 AM CDT Dyslipidemia SCREENING MAMMOGRAM BILATERAL W JAKE Schedule Routine, Read Routine (OP Routine) 06/17/2020 11:12 AM CDT Breast cancer screening by mammogram COLONOSCOPY Routine 04/22/2020 PAP AND HIGH RISK HPV, REFLEX TO GENOTYPING Routine 03/21/2020 3:53 AM HARPSICHORD MAKER from Last 3 Months or Most Recently Relevant to Health Maintenance Results * eGFR (07/10/2021 9:13 AM CDT) eGFR 109 mL/min/1. 73 m2 ALEISHA Comment: Interpretive Data Reference Interval Normal >/= 90 mL/min/1.73m2 Mildly decreased* 60 - 89 mL/min/1.73m2 Mildly to moderately decreased 45 - 59 mL/min/1.73m2 Moderately to severely decreased 30 - 44 mL/min/1.73m2 Severely decreased 15 - 29 mL/min/1.73m2 Kidney Failure < 15 mL/min/1.73m2 *Relative to young adult level Estimated glomerular filtration rate is determined by the 2020 CKD-EPI equation recommended by the National Kidney Foundation (A Unifying Approach to GFR Estimation: Recommendations of the NKF-ASK Task Force on Reassessing the Inclusion of Race in Diagnosing Kidney Disease, ELOYSDorota 2020). The CKD-EPI equation should not be used for patients with unstable renal function and has not been validated in children and those over 70. Current interpretive data was last reviewed 2021. Blood 07/10/2021 9:13 AM CDT 07/10/2021 9:54 AM CDT Marika Wong MD LAB BLOOD ORDERABLES Final Result Performing Organization Address [facility]/ZIP Co de Phone Number [place] [phone] [facility] [place] [address] * Diabetic Eye Exam (01/11/2021) Narrative Luzmaria Bhagat MA - 01/11/2021 No Diabetic retinopathy Historical Provider MD HEALTH MAINTENANCE Final Result * Diabetic Foot Exam (10/19/2020) Historical Provider MD HEALTH MAINTENANCE Final Result * Albumin Creatinine Ratio, Urine (10/12/2020 9:45 AM CDT) Albumin Ur 32.1 mg/L ALEISHA Comment: Interpretive Data No reference range established. Current interpretive data was last revised 2018. Creatinine Ur 406.0 mg/dL ALEISHA Comment: Interpretive Data No reference range established. Current interpretive data was last revised 2018. Albumin Creatinine Ratio, Ur 8 1 - 29 mg/g ALEISHA Urine 10/12/2020 9:45 AM CDT 10/12/2020 9:48 AM CDT Elizabeth Pollard MD LAB URINE ORDERABLES Final Result Performing Organization Address City/[facility]/ZIP Co de Phone Number [address] [place] [address] * (ABNORMAL) Hemoglobin A1c (10/12/2020 9:41 AM CDT) Hgb A1C 7.9(H) 4.0 - 5.6 % ALEISHA SPAIN Estimated Average Glucose 180 mg/dL ALEISHA SPAIN Comment: The ADA recommends reporting an estimated Average Glucose (eAG) with all Hemoglobin A1c results using the equation derived from a study of 507 normal and diabetic adults. Minority populations were underrepresented and children were not included. (Diabetes Care 31:1074-7232, 2008). The eAG is not equivalent to a fasting glucose. Blood specimen (specimen) 10/12/2020 9:41 AM CDT 10/12/2020 10:02 AM CDT Elizabeth Pollard MD LAB BLOOD ORDERABLES Final Result ALEISHA [facility] Department of Laboratories [place], [place] [id number] * (ABNORMAL) Lipid panel (10/12/2020 9:41 AM CDT) Cholesterol 190 30 - 199 mg/dL ALEISHA Comment: Interpretive Data Ages < or = 19 years Acceptable: <170 mg/dL Borderline high: 170-199 mg/dL High: >or= 200 mg/dL Ages > or = 20 years Desirable: <200 mg/dL Borderline high: 200-239 mg/dL High: >or= 240 mg/dL Literature References: 1. Expert Panel on Integrated Guidelines for Cardiovascular Health and Risk Reduction in Children and Adolescents. Pediatrics 2011;128:S213 2. NCEP Expert Panel. Circulation 2004;110:227 Current Interpretive Data was last revised on 2017. Triglycerides 76 <=149 mg/dL ALEISHA Comment: Interpretive Data Ages < or = 9 years Acceptable: <75 mg/dL Borderline high: 75-99 mg/dL High: >or= 100 mg/dL Ages 10 to 20 years Acceptable: <90 mg/dL Borderline high: 90-129 mg/dL High: >or= 130 mg/dL Ages > or = 20 years Desirable: <150 mg/dL Borderline high: 150-199 mg/dL High: 200-499 mg/dL Very high: >or= 499 mg/dL Literature References: 1. Expert Panel on Integrated Guidelines for Cardiovascular Health and Risk Reduction in Children and Adolescents. Pediatrics 2011;128:S213 2. NCEP Expert Panel. Circulation 2004;110:227 Current Interpretive Data was last revised on 2017. HDL 43 >=40 mg/dL ALEISHA Comment: Interpretive Data Ages < or = 19 years Acceptable: >45 mg/dL Borderline low: 40-45 mg/dL Low: <40 mg/dL Ages > or = 20 years Desirable: >or= 60 mg/dL Low: <40 mg/dL Literature References: 1. Expert Panel on Integrated Guidelines for Cardiovascular Health and Risk Reduction in Children and Adolescents. Pediatrics 2011;128:S213 2. NCEP Expert Panel. Circulation 2004;110:227 Current Interpretive Data was last revised on 2017. LDL, calculated 132(H) <=129 mg/dL ALEISHA Comment: Interpretive Data Ages < or = 19 years Acceptable: <110 mg/dL Borderline high: 110-129 mg/dL High: >or= 130 mg/dL Ages > or = 20 years Optimal: <100 mg/dL Near optimal: 100-129 mg/dL Borderline high: 130-159 mg/dL High: >160 mg/dL Literature References: 1. Expert Panel on Integrated Guidelines for Cardiovascular Health and Risk Reduction in Children and Adolescents. Pediatrics 2011;128:S213 2. NCEP Expert Panel. Circulation 2004;110:227 Current Interpretive Data was last revised on 2017. Non-HDL Cholesterol 147 mg/dL ALEISHA Comment: Interpretive Data Ages < or = 19 years Acceptable: <120 mg/dL Borderline high: 120-144 mg/dL High: >145 mg/dL Ages > or = 20 years When triglycerides are >200 mg/dL, Non-HDL cholesterol is a secondary target of therapy with treatment goals that are 30 mg/dL greater than the LDL cholesterol target. Literature References: 1. Expert Panel on Integrated Guidelines for Cardiovascular Health and Risk Reduction in Children and Adolescents. Pediatrics 2011;128:S213 2. NCEP Expert Panel. Circulation 2004;110:227 Current Interpretive Data was last revised on 2017. Chol/HDL ratio 4 ALEISHA Blood specimen (specimen) 10/12/2020 9:41 AM CDT 10/12/2020 10:02 AM CDT Narrative ALEISHA SPAIN - 10/12/2020 10:58 AM CDT Has the patient been fasting for 8 hours or more?->Yes Elizabeth Pollard MD LAB BLOOD ORDERABLES Final Result Performing Organization Address City/State/[facility] Co de Phone Number ALEISHA SPAIN [address] [facility] Department [place] [address] * Screening Mammogram Bilateral W Jake (06/17/2020 11:12 AM CDT) Anatomical Region Laterality Modality Breast Bilateral Mammography Narrative 06/23/2020 3:16 PM CDT Mammogram Technique: Bilateral Digital Breast Tomosynthesis, Bilateral C-view 2D Screening mammogram. Views obtained: bilateral craniocaudal and bilateral mediolateral oblique. Computer Aided Detection was performed. Mammogram Findings: The present examination has been compared to prior imaging studies performed at [place], [place] on 01/30/2016 and 08/21/2018. There are scattered areas of fibroglandular density. There is asymmetry in the middle inner breast on the craniocaudal view of the right breast. There is no suspicious abnormality in the left breast. Impression: Asymmetry in the right breast requires additional evaluation. Additional views are recommended. OVERALL FINAL ASSESSMENT: BI-RADS CATEGORY 0: Incomplete: Need additional imaging evaluation. Procedure Note Jazzy Burgos MD - 06/23/2020 Mammogram Technique: Bilateral Digital Breast Tomosynthesis, Bilateral C-view 2D Screening mammogram. Views obtained: bilateral craniocaudal and bilateral mediolateral oblique. Computer Aided Detection was performed. Mammogram Findings: The present examination has been compared to prior imaging studies performed at [place], [place] on 01/30/2016 and 08/21/2018. There are scattered areas of fibroglandular density. There is asymmetry in the middle inner breast on the craniocaudal viewof the right breast. There is no suspicious abnormality in the left breast. Impression: Asymmetry in the right breast requires additional evaluation. Additional views are recommended. OVERALL FINAL ASSESSMENT: BI-RADS CATEGORY 0: Incomplete: Need additional imaging evaluation. Elizabeth Pollard MD IMG MAMMO PROCEDURES Final Result * (ABNORMAL) Colonoscopy (04/22/2020) Anatomical Region Laterality Modality Other Narrative 04/22/2020 Dr. Farr repeat in 3 years Historical Provider ENDOSCOPY PROCEDURES Nargis l Result * Pap and High Risk HPV, reflex to Genotyping (03/21/2020 3:53 AM HARPSICHORD MAKER) 03/21/2020 3:53 AM HARPSICHORD MAKER 03/21/2020 5:21 PM [employer]PSICHORD MAKER Narrative [facility] - 03/25/2020 11:14 AM HARPSICHORD MAKER EPIC results best viewed via link to PDF [facility] [place] [address] CYTOPATHOLOGY REPORT FINAL Patient Name: JULIENNE BARVO Gender: F : 1970 (Age: 49) Address: [address] [place] [address] Hospital #: [id number] Service: Gynecology Location: [facility] Patient Type: [facility] Ancillary Taken: 03/21/2020 Received: 03/21/2020 Accessioned: 03/21/2020 Reported: 03/25/2020 Physician(s): Kalyn Casey M.D. FINAL INTERPRETATION SOURCE OF SPECIMEN: Liquid based Thin Prep pap with HPV STATEMENT OF ADEQUACY: - Satisfactory for evaluation - Endocervical cells/transformation zone sample absent GENERAL CATEGORY: - Negative for squamous intraepithelial lesion or malignancy Comments HPV Result: NEGATIVE for high risk types of Human Papilloma Virus (HPV) RNA This probe detects the presence of HPV types: 16, 18, 31, 33, 35, 39, 45, 51, 52, 56, 58, 59, 66 and 68. This HPV test was performed at [facility] in [place], [place] utilizing the Gen-Probe Aptima assay. /03/25/2020 11:14 TOMA Valdez(ASCP) Report Electronically Reviewed and Signed Out By TOMA Valdez(ASCP) 03/25/2020 11:14:35 Cervicovaginal Cytology (Pap Test) Disclaimer: The Pap test is a screening test used to detect cervical cancer and its precursors; it is not a diagnostic procedure. False negative and false positive results do occur. Pap test results should be interpreted in the context of pertinent clinical information and biopsy results as indicated. Gross Description A. Liquid based Thin Prep pap with HPV: Cervical/vaginal - Screening ThinPrep with HPV Clinical Diagnosis and History Last Menstrual Period: 02/26 Menstrual History: Perimenopausal The patient is a 49 year old woman with history of HSIL s/p CKC. Report Images and scanned documents, if included only viewable in PDF version The performance characteristics of some immunohistochemical stains, in-situ hybridization and fluorescence in-situ hybridization tests and immunophenotyping by flow cytometry cited in this report (if any) were determined by the Surgical Pathology Department at [facility] as part of an ongoing quality assurance tech program and in compliance with federally mandated regulations drawn from the Clinical Laboratory Improvement Act of 1988 (CLIA '88). Some of these tests rely on the use of analyte specific reagents and are subject to specific labeling requirements by the US Food and Drug Administration. Such diagnostic tests may only be performed in a facility that is certified by the Department of Health and Human Services as a high complexity laboratory under CLIA '88. The FDA has determined that such clearance or approval is not necessary. This test is used for clinical purposes. It should not be regarded as investigational or for research. Nevertheless, federal rules concerning the medical use of analyte specific reagents require that the following disclaimer be attached to the report: This test was developed and its performance characteristics determined by the Surgical Pathology Department of [facility]. It has not been cleared or approved by the U. S. Food and Drug Administration. Tonia Casey MD LAB CYTOLOGY ORDERABLES Nargis alonso Result [facility] [address] [place] [address] from Last 3 Months or Most Recently Relevant to Health Maintenance Insurance [employer] [facility] [employer] [facility] [facility] Advance Directives For more information, please contact: [phone] * Full Code (Latest Code Status on File) Date Activated Date Inactivated Comments 07/28/2020 7:49 AM 07/29/2020 9:58 PM * Full Code Date Activated Date Inactivated Comments 07/28/2020 7:49 AM 07/28/2020 7:49 AM Care Teams Tray Filler Relationship Specialty Start Date End Date Elizabeth Pollard MD [address] [place] [address] [place] [id number] PCP - General Internal Medicine 09/07/19
--- OUTSIDE RECORDS SUMMARY | 2024-04-23 21:51 | XMS_ITS | CONTINUITY OF CARE DOCUMENT ---
Author Name jovon sigala Address Unknown Organization [facility] Address [address] [place] [address] Phone [phone] Care Team Providers Care Regional Economic Liaison Name Role Phone Mo BARRON, Giovanni Neves Unavailable [phone] HUMBERTO BARRON, NIDAL Unavailable HUMBERTO BARRON, NIDAL Unavailable [phone] PROBLEMS Condition Status Date Provider Notes S/P DC PM [facility]/ Gen change DC PM Zelaya 10/03/21 ( MRI safe) active Guerita Oleary LOW BLOOD PRESSURE;DIURETIC STOPED 12 completed - Tony Cummings CHEST PAIN-09/21 STRESS ECHO NEG completed - Chris Crews MD COPD;BY GERALDO active Chris Crews MD CHEST PAIN-05/25 NUC NEG completed - Chris wilson MD DVT;NEG US 2009 completed - Giovanni Hassan MD PVD-06/25 LIVIER NEG completed - Giovanni Hassan MD DVT-07/26 LOWER EXT DOP NEG 06/25 CONSUELO DOP NEG completed - Giovanni Hassan MD CAD;NML CATH 2010, NEG NUC completed 05/10 - Giovanni Hassan MD Microvascular angina active Giovanni Hassan MD AV BLOCK, 1ST DEGREE active Chris Mejia OBESITY active Tony Cummings CAD - 05/01 CATH 30% LM completed - Giovanni Hassan MD HTN active Tony Cummnigs SHORTNESS OF BREATH active Giovanni Hassan MD Dyslipidemia active Tony Cummings CHEST PAIN completed - Tony Emiliano Bradycardia active Tony Cummings Sick sinus syndrome active Giovanni Hassan MD Atrial fib paroxysmal active Elba steve MD Atrial flutter active Elba Haddad MD Atrial Fibrillation completed - Giovanni Hassan MD Leg pain completed - Giovanni Hassan MD Tobacco use quit active Giovanni Hassan MD S/P DC PM [facility]/ Gen change DC PM Zelaya 10/03/21 (MRI safe) active Gueritaher Oleary Diabetes mellitus active Elba Haddad MD Cardiomyopathy - 10/2016 NUC EF 36% completed - Giovanni Hassan MD Current use of anticoagulants active Giovanni Hassan MD Sleep apnea completed - Giovanni Hassan MD Edema completed - Giovanni Hassan MD Preop cardiovasc. examination completed 02/09/14 - Giovanni Hassan MD Screening - negative COVID-1 9 antibodies 10/2019 active Tony Cummings Back pain active Tony Cummings Preop exam active Tony Cummings Migraine headaches active Gayathri Ashford krishna CHF active Gayathri Alvarado Cough active Gayathri Alvarado ENCOUNTERS Date Type Provider Location Encounter Diag nosis - In-person encounter Office Visit [facility] Cough - In-person encounter Office Visit Giovanni Hassan MD [facility] CHF - In-person encounter Office Visit Giovanni Hassan MD [facility] SHORTNESS OF BREATH - In-person encounter Office Visit Giovanni Hassan MD [facility] Migraine headaches - In-person encounter Office Visit Giovanni Hassan MD [facility] Screening - negative COVID-19 antibodies 10/2019Preop exam - In-person encounter Office Visit Giovanni Hassan MD [facility] CHEST PAINScreening - negative COVID-19 antibodies 10/2019Back pain - In-person encounter Office Visit Giovanni Hassan MD [facility] Microvascular angina - In-person encounter Office Visit Giovanni Hassan MD [facility] Microvascular anginaCAD - 05/01 CATH 30% LMSHORTNESS OF BREATHLeg painEdema - In-person encounter Office Visit Giovanni Hassan MD [facility] Preop cardiovasc. examination - In-person encounter Office Visit Yoana Griggs MD [facility] - In-person encounter Office Visit Giovanni Hassan MD [facility] Sleep apnea - In-person encounter Office Visit Giovanni Hassan MD [facility] Cardiomyopathy - 10/2016 NUC EF 36% - In-person encounter Office Visit Elba Haddad MD [facility] - In-person encounter Office Visit Giovanni Hassan MD [facility] LOW BLOOD PRESSURE;DIURETIC STOPED 12OBESITYHTNDyslipidemi aBradycardiaS/P DC PM [facility]/ Gen change DC PM Zelaya 10/03/21 (MRI safe)Current use of anticoagulants - In-person encounter Office Visit Elba Haddad MD [facility] - In-person encounter Office Visit Elba Haddad MD [facility] Diabetes mellitus - In-person encounter Office Visit Giovanni Hassan MD [facility] DVT;NEG US 2010PVD-06/25 LIVIER NEGDVT-07/26 LOWER EXT DOP NEG 06/25 CONSUELO DOP NEGCAD;NML CATH 2010, NEG NUCSick sinus syndromeTobacco use quitS/P DC PM [facility]/ Gen change DC PM Zelaya 10/03/21 (MRI safe) - In-person encounter Office Visit Giovanni Hassan MD [facility] Atrial Fibrillation - In-person encounter Office Visit Giovanni Hassan MD [facility] - In-person encounter Office Visit Giovanni Hassan MD [facility] - In-person encounter Office Visit Giovanni Hassan MD [facility] - In-person encounter Office Visit Giovanni Hassan MD [facility] - In-person encounter Office Visit Elba Haddad MD [facility] Atrial flutter - In-person encounter Office Visit Elba Haddad MD [facility] Atrial fib paroxysmal - In-person encounter Office Visit Giovanni Hassan MD [facility] - In-person encounter Office Visit Giovanni Hassan MD [facility] - In-person encounter Office Visit Giovanni Hassan MD [facility] Sick sinus syndrome - In-person encounter Office Visit Giovanni Hassan MD [facility] CHEST PAINBradycardia - In-person encounter Office Visit Giovanni Hassan MD [facility] Dyslipidemia - In-person encounter Office Visit Giovanni Hassan MD [facility] HTNSHORTNESS OF BREATH - In-person encounter Office Visit Chris Crews MD [facility] CHEST PAIN-09/21 STRESS ECHO NEGCOPD;BY SPIROCHEST PAIN-05/25 NUC NEGMicrovascular anginaAV BLOCK, 1ST DEGREEOBESITY - In-person encounter Office Visit Giovanni Hassan MD [facility] - In-person encounter Office Visit Giovanni Hassan MD [facility] DVT-07/26 LOWER EXT DOP NEG 06/25 CONSUELO DOP NEGCAD;NML CATH 2010, NEG NUC - In-person encounter Office Visit Giovanni Hassan MD [facility] - In-person encounter Office Visit Giovanni Hassan MD [facility] - In-person encounter Office Visit Giovanni Hassan MD [facility] DVT;NEG US 2009 - In-person encounter Office Visit Giovanni Hassan MD [facility] VITAL SIGNS Date Observation Value Provider Body Mass Index (Ratio) 44.26 kg/m2 Flavia Alvarado blood pressure, diastolic 80 mm[Hg] Ma rsha [facility] blood pressure, systolic 120 mm[Hg] Mar nita [facility] oxygen saturation, oximetry 97 % [facility] E&M 16 /min [facility] pulse rate 74 /min [facility] blood pressure, resting Yes [facility]&M 266 [lb_av] [facility] height E&M 65 [in_i] [facility] Body Mass Index (Ratio) 44.09 kg/m2 Flavia Alvarado blood pressure, cuff size large Zaria dubon [place] blood pressure, diastolic 80 mm[Hg] Mi ling [place] blood pressure, systolic 134 mm[Hg] Prince vanda [place] oxygen saturation, oximetry 97 % Bella Estrada respiratory rate E&M 16 /min Ayana Estrada pulse rate 76 /min Bella mejia weight E&M 265 [lb_av] Bella Rosalind mejia height E&M 65 [in_i] Bella Rosalind mejia Body Mass Index (Ratio) 45.26 kg/m2 Flavia Alvarado blood pressure, diastolic 84 mm[Hg] Li nkLogic blood pressure, systolic 136 mm[Hg] Keira kLog blood pressure, diastolic 84 mm[Hg] Adele Santiago blood pressure, systolic 136 mm[Hg] Ashley Santiago oxygen saturation, oximetry 98 % Romi Santiago respiratory rate E&M 18 /min Blaine Santiago pulse rate 70 /min Romi morgan weight E&M 272 [lb_av] Romi morgan blood pressure, cuff size large Adele Santiago height E&M 65 [in_i] Romi morgan blood pressure, diastolic 70 mm[Hg] Li nkLog blood pressure, systolic 110 mm[Hg] Keira kLog blood pressure, diastolic 70 mm[Hg] Emiliana lara [facility] blood pressure, systolic 110 mm[Hg] Samantha parekh [facility] Body Mass Index (Ratio) 45.76 kg/m2 Tyler Cummings blood pressure, cuff size large Ke rri Kwasiuenenfcorineer blood pressure, diastolic 70 mm[Hg] Ke rri Gruenenfelder blood pressure, systolic 138 mm[Hg] Alex Figueroa oxygen saturation, oximetry 98 % Kelly Figueroa respiratory rate E&M 16 /min Kelly jimenez pulse rate 81 /min Kelly Kwasiuenenfe er weight E&M 275 [lb_av] Kelly Akers er height E&M 65 [in_i] Kelly [facility]ers [facility] Body Mass Index (Ratio) 44.59 kg/m2 Tyler Cummings blood pressure, cuff size regular Jim duval Radha blood pressure, diastolic 70 mm[Hg] Jim isjud [facility] blood pressure, systolic 118 mm[Hg] Perlita curtis [facility] respiratory rate E&M 19 /min Rowena [facility] oxygen saturation, oximetry 98 % Rowena Radha pulse rate 92 /min Rowena Radha weight E&M 268 [lb_av] Rowena Radha height E&M 65 [in_i] Rowena [facility] oxygen saturation, oximetry 99 % Flavia G Leger pulse rate 88 /min Flavia G [facility] blood pressure, diastolic 83 mm[Hg] Na danette G Leger blood pressure, systolic 133 mm[Hg] Lucretia kiana G [facility] oxygen saturation, oximetry 99 % Flavia G Leger pulse rate 89 /min Flavia G [facility] ips blood pressure, diastolic 92 mm[Hg] Na danette G Leger blood pressure, systolic 123 mm[Hg] Lucretia kiana G [facility] oxygen saturation, oximetry 98 % Flavia G Leger pulse rate 89 /min Flavia G [facility] ips blood pressure, diastolic 81 mm[Hg] Na danette G Leger blood pressure, systolic 134 mm[Hg] Lucretia kiana G [facility]er oxygen saturation, oximetry 98 % Waleska Chavez pulse rate 82 /min Waleska castro blood pressure, diastolic 84 mm[Hg] Butch Chavez blood pressure, systolic 133 mm[Hg] Linda Chavez Body Mass Index (Ratio) 46.09 kg/m2 Tyler Cummings blood pressure, diastolic, left arm 69 mm [Hg] [facility] blood pressure, systolic, left arm 114 mm [Hg] [facility] blood pressure, diastolic, right arm 86 m m[Hg] [facility] blood pressure, systolic, right arm 122 m m[Hg] [facility] respiratory rate E&M 16 /min [facility] blood pressure, diastolic 69 mm[Hg] To [facility] blood pressure, systolic 114 mm[Hg] Ton [facility] oxygen saturation, oximetry 97 % [facility] pulse rate 78 /min [facility] weight E&M 277 [lb_av] [facility] height E&M 65 [in_i] [facility] Body Mass Index (Ratio) 45.26 kg/m2 Tyler Cummings blood pressure, diastolic, right arm 80 m m[Hg] Denise Martines blood pressure, systolic, right arm 126 m m[Hg] Denisedane Martines blood pressure, cuff size regular Cy chongtaras Martines respiratory rate E&M 16 /min Denise Martines pulse rate 86 /min Denise Campbel l oxygen saturation, oximetry 96 % Denise Martines blood pressure, diastolic 80 mm[Hg] Cy zack Martines blood pressure, systolic 122 mm[Hg] Juana gayatri Martines weight E&M 272 [lb_av] Denise Campbel l height E&M 65 [in_i] Denise Campbel l Body Mass Index (Ratio) 45.76 kg/m2 Tyler Cummings blood pressure, diastolic 62 mm[Hg] Ma rsha [facility] blood pressure, systolic 120 mm[Hg] Mar sha [facility] oxygen saturation, oximetry 99 % [facility] respiratory rate E&M 18 /min [facility] pulse rate 71 /min [facility] weight E&M 275 [lb_av] [facility] height E&M 65 [in_i] [facility] Body Mass Index (Ratio) 45.76 kg/m2 Tyler Isabell weight E&M 275 [lb_av] Gabrielle lewis blood pressure, cuff size large Cr cedric Asim blood pressure, diastolic 80 mm[Hg] Cr cedric Dailey blood pressure, systolic 140 mm[Hg] Cry earl Dailey oxygen saturation, oximetry 98 % Gabrielle Dailey respiratory rate E&M 17 /min Gabrielle Dailey pulse rate 72 /min Gabrielle lewis height E&M 65 [in_i] Gabrielle lewis Body Mass Index (Ratio) 47.42 kg/m2 Tyler Cummings pulse rate 80 /min [facility], oximetry 98 % Sumit Melendez blood pressure, diastolic 80 mm[Hg] Kevin Melendez blood pressure, systolic 126 mm[Hg] Pauly Melendez respiratory rate E&M 16 /min Sumit Melendez weight E&M 285 [lb_av] [facility] height E&M 65 [in_i] [facility] Body Mass Index (Ratio) 46.92 kg/m2 Tyler Cummings blood pressure, cuff size large Adele Singh blood pressure, diastolic 80 mm[Hg] Adele Singh blood pressure, systolic 130 mm[Hg] Yaima Singh oxygen saturation, oximetry 98 % Calista Singh respiratory rate E&M 16 /min Calista Singh pulse rate 66 /min Calista Singh weight E&M 282 [lb_av] Calista Singh height E&M 65 [in_i] Calista Singh Body Mass Index (Ratio) 47.16 kg/m2 Tyler Cummings Body Mass Index (Ratio) 46.42 kg/m2 Tom Haddad MD blood pressure, cuff size large Livan murguiajoaquina Figueroa blood pressure, diastolic, standing 80 mm [Hg] Kelly Figueroa blood pressure, systolic, standing 160 mm [Hg] Kelly Figueroa oxygen saturation, oximetry 98 % Kelly Figueroa respiratory rate E&M 18 /min Kelly jimenez pulse rate 79 /min Kelly shearer weight E&M 279 [lb_av] Kelly shearer height E&M 65 [in_i] Kelly [facility]ers [facility] blood pressure, resting Yes Gail Patel blood pressure, diastolic 83 mm[Hg] Vignesh Patel blood pressure, systolic 129 mm[Hg] Marie Patel oxygen saturation, oximetry 99 % Kostas Patel respiratory rate E&M 20 /min Homa Patel pulse rate 74 /min Kostas orourke weight E&M 283.4 [lb_av] Kostas [place] height E&M 65 [in_i] Kostas orourke blood pressure, yen tolic, second observation 80 mm[Hg] Emily Baron blood pressure, syst olic, second observation 121 mm[Hg] Emily Baron blood pressure, diastolic 80 mm[Hg] Na alicia Baron blood pressure, systolic 121 mm[Hg] Lucretia Baron pulse rate 77 /min Emily Baron oxygen saturation, oximetry 99 % Emily Baron respiratory rate E&M 18 /min Emily Baron Body Mass Index (Ratio) 47.09 kg/m2 Becka Baron weight E&M 283 [lb_av] Emily Baron blood pressure, diastolic 87 mm[Hg] Me shannon Robertson blood pressure, systolic 145 mm[Hg] Karina priest Robertson pulse rate 86 /min Jacque Robertson oxygen saturation, oximetry 98 % Jacque Robertson respiratory rate E&M 16 /min Jacque Robertson Body Mass Index (Ratio) 47.42 kg/m2 Meghan severino Robertson weight E&M 285 [lb_av] Jacque Robertson blood pressure, diastolic 63 mm[Hg] Vignesh Patel blood pressure, systolic 110 mm[Hg] Marie Patel pulse rate 67 /min Kostas orourke oxygen saturation, oximetry 96 % Kostas Patel respiratory rate E&M 18 /min Homa Patel Body Mass Index (Ratio) 47.85 kg/m2 Gail Patel weight E&M 287.6 [lb_av] Kostas Lo ensmatthew blood pressure, diastolic 72 mm[Hg] Vignesh Patel blood pressure, systolic 126 mm[Hg] Marie Patel Body Mass Index (Ratio) 47.09 kg/m2 Gail Patel pulse rate 74 /min Kostas orourke oxygen saturation, oximetry 97 % Kostas Patel respiratory rate E&M 18 /min Homa Patel weight E&M 283 [lb_av] Kostas orourke Body Mass Index (Ratio) 47.59 kg/m2 Anea mary Brown blood pressure, diastolic, left arm 80 mm [Hg] Aneatris Brown blood pressure, systolic, left arm 132 mm [Hg] Aneatris Brown blood pressure, diastolic, right arm 78 m m[Hg] Aneatris Brown blood pressure, systolic, right arm 136 m m[Hg] Aneatris Brown blood pressure, diastolic 80 mm[Hg] [facility], systolic 132 mm[Hg] Ane [facility] pulse rate 76 /min [facility] oxygen saturation, oximetry 98 % [facility] respiratory rate E&M 18 /min [facility] weight E&M 286 [lb_av] [facility] blood pressure, diastolic, left arm 76 mm [Hg] Jacque Robertson blood pressure, systolic, left arm 113 mm [Hg] [facility] blood pressure, diastolic, right arm 76 m m[Hg] [facility] blood pressure, systolic, right arm 134 m m[Hg] [facility] Body Mass Index (Ratio) 46.76 kg/m2 Meghan ssa Robertson blood pressure, diastolic 76 mm[Hg] Wa mirtha Robertson blood pressure, systolic 113 mm[Hg] Karina cem Robertson pulse rate 63 /min [facility] oxygen saturation, oximetry 98 % [facility] respiratory rate E&M 14 /min [facility] weight E&M 281 [lb_av] Jacque Robertson Body Mass Index (Ratio) 46.59 kg/m2 [facility]nea [facility] blood pressure, diastolic, left arm 82 mm [Hg] [facility] blood pressure, systolic, left arm 140 mm [Hg] [facility] blood pressure, diastolic, right arm 81 m m[Hg] [facility] blood pressure, systolic, right arm 126 m m[Hg] [facility] blood pressure, diastolic 82 mm[Hg] An [facility] blood pressure, systolic 140 mm[Hg] Ane at[facility] pulse rate 81 /min [facility] oxygen saturation, oximetry 98 % [facility] respiratory rate E&M 18 /min [facility] weight E&M 280 [lb_av] [facility] Body Mass Index (Ratio) 46.26 kg/m2 Anea mary [facility] blood pressure, diastolic, left arm 82 mm [Hg] [facility] blood pressure, systolic, left arm 134 mm [Hg] [facility] blood pressure, diastolic, right arm 75 m m[Hg] [facility] blood pressure, systolic, right arm 116 m m[Hg] [facility] blood pressure, diastolic 82 mm[Hg] [facility] blood pressure, systolic 134 mm[Hg] Ane at[facility] pulse rate 76 /min [facility] oxygen saturation, oximetry 98 % [facility] respiratory rate E&M 17 /min [facility] weight E&M 278 [lb_av] [facility] Body Mass Index (Ratio) 46.92 kg/m2 [facility]nea [facility] blood pressure, diastolic 78 mm[Hg] An [facility] blood pressure, systolic 128 mm[Hg] Ane at[facility] pulse rate 71 /min [facility] oxygen saturation, oximetry 99 % [facility] respiratory rate E&M 18 /min [facility] weight E&M 282 [lb_av] [facility] Body Mass Index (Ratio) 46.42 kg/m2 Arti Figueroa blood pressure, diastolic 72 mm[Hg] Livan murguiai Fayeneifeomakhang blood pressure, systolic 112 mm[Hg] Alex jesus Kwasituyetkhang pulse rate 78 /min Kelly Akers er oxygen saturation, oximetry 98 % Kelly Borgescorinebeena respiratory rate E&M 18 /min Kelly Lee tony weight E&M 279 [lb_av] Kelly Akers er blood pressure, diastolic, left arm 83 mm [Hg] Jacque Robertson blood pressure, systolic, left arm 122 mm [Hg] [facility] blood pressure, diastolic, right arm 83 m m[Hg] Jacque Robertson blood pressure, systolic, right arm 133 m m[Hg] Jacque Robertson Body Mass Index (Ratio) 46.26 kg/m2 Meghan ssa Robertson blood pressure, diastolic 83 mm[Hg] Wa mirtha Robertson blood pressure, systolic 122 mm[Hg] Karina cem Robertson pulse rate 70 /min [facility] oxygen saturation, oximetry 98 % Jacque Robertson respiratory rate E&M 16 /min Jacque Robertson weight E&M 278 [lb_av] Jacque Robertson Body Mass Index (Ratio) 46.76 kg/m2 Becka Baron blood pressure, diastolic, left arm 70 mm [Hg] Emily Baron blood pressure, systolic, left arm 126 mm [Hg] Emily Baron blood pressure, diastolic, right arm 86 m m[Hg] Emily Baron blood pressure, systolic, right arm 139 m m[Hg] Emily Baron blood pressure, diastolic 86 mm[Hg] Na alicia Baron blood pressure, systolic 139 mm[Hg] Lucretia Baorn pulse rate 73 /min Emily Baron oxygen saturation, oximetry 98 % Emily Baron respiratory rate E&M 17 /min Emily Baron weight E&M 280 [lb_av] Emily Baron Body Mass Index (Ratio) 45.93 kg/m2 [facility] [place] blood pressure, diastolic 80 mm[Hg] Ke rri [place] blood pressure, systolic 125 mm[Hg] Alex ri [place] pulse rate 70 /min Kelly Oswald er oxygen saturation, oximetry 98 % Kelly [place] respiratory rate E&M 15 /min Kelly Lee tony weight E&M 275 [lb_av] Kelly Gruenenfe lder blood pressure, diastolic, left arm 74 mm [Hg] Emma O'[facility] blood pressure, systolic, left arm 122 mm [Hg] Emma O'[place] blood pressure, diastolic, right arm 70 m m[Hg] Emma O'[place] blood pressure, systolic, right arm 118 m m[Hg] Emma O'Cayden Body Mass Index (Ratio) 45.78 kg/m2 [facility] O'Cayden blood pressure, diastolic 70 mm[Hg] [facility]'[place] blood pressure, systolic 118 mm[Hg] [facility] pulse rate 71 /min Emma O'Cayden oxygen saturation, oximetry 98 % Emma O'Cayden respiratory rate E&M 18 /min Emma O'[place]den weight E&M 274.13 [lb_av] Emma O'Cayden Body Mass Index (Ratio) 44.28 kg/m2 Charles Lomas blood pressure, diastolic, left arm 75 mm [Hg] Karla Lomas blood pressure, systolic, left arm 118 mm [Hg] [facility] blood pressure, diastolic, right arm 76 m m[Hg] Rydermorgan Lomas blood pressure, systolic, right arm 135 m m[Hg] [facility] blood pressure, diastolic 75 mm[Hg] Shawn mel Lomas blood pressure, systolic 118 mm[Hg] Ryder esparza Lomas pulse rate 68 /min [facility] oxygen saturation, oximetry 98 % [facility] respiratory rate E&M 16 /min [facility] weight E&M 265.13 [lb_av] [facility] height E&M 65 [in_i] [facility] blood pressure, diastolic, left arm 78 mm [Hg] [facility] blood pressure, systolic, left arm 135 mm [Hg] [facility] blood pressure, diastolic, right arm 73 m m[Hg] [facility] blood pressure, systolic, right arm 121 m m[Hg] [facility] blood pressure, diastolic 78 mm[Hg] Shawn sindyre Merrillan blood pressure, systolic 135 mm[Hg] Ryder morgan Merrillan pulse rate 66 /min [facility] oxygen saturation, oximetry 99 % [facility] respiratory rate E&M 16 /min [facility] weight E&M 264 [lb_av] [facility] pulse rate #2 68 Bertha Peoplesett blood pressure, yen tolic, second observation 67 mm[Hg] Bertha Umaña blood pressure, syst olic, second observation 117 mm[Hg] Bertha Umaña oxygen saturation, oximetry 98 % Bertha Umaña pulse rate 67 /min Bertha Umaña blood pressure, diastolic 52 mm[Hg] Girma Umaña blood pressure, systolic 99 mm[Hg] Ter i Umaña pulse rate #2 60 Bertha Umaña blood pressure, yen tolic, second observation 81 mm[Hg] Bertha Umaña blood pressure, syst olic, second observation 119 mm[Hg] Bertha Umaña oxygen saturation, oximetry 98 % Bertha Umaña pulse rate 67 /min Bertha Umaña blood pressure, diastolic 68 mm[Hg] Te ri Umaña blood pressure, systolic 117 mm[Hg] Ter i U[facility]ña pulse rate #2 68 Bertha Umaña blood pressure, yen tolic, second observation 86 mm[Hg] Bertha Umaña blood pressure, syst olic, second observation 154 mm[Hg] Bertha Umaña oxygen saturation, oximetry 98 % Bertha Umaña pulse rate 58 /min Bertha Umaña blood pressure, diastolic 68 mm[Hg] Te ri Umaña blood pressure, systolic 143 mm[Hg] Ter i [place]ña pulse rate #2 76 Bertha Umaña blood pressure, yen tolic, second observation 65 mm[Hg] Bertha Umaña blood pressure, syst olic, second observation 135 mm[Hg] Bertha Umaña oxygen saturation, oximetry 98 % Bertha Umaña pulse rate 77 /min Bertha Umaña blood pressure, diastolic 81 mm[Hg] Te ri Umaña blood pressure, systolic 127 mm[Hg] Ter i Umaña pulse rate #2 71 Bertha Umaña blood pressure, yen tolic, second observation 69 mm[Hg] Bertha Umaña blood pressure, syst olic, second observation 106 mm[Hg] Bertha Umaña oxygen saturation, oximetry 98 % Bertha Umaña pulse rate 83 /min Bertha Umaña blood pressure, diastolic 73 mm[Hg] Te ri Umaña blood pressure, systolic 128 mm[Hg] Ter i Umaña pulse rate #2 76 Bertha Umaña blood pressure, yen tolic, second observation 62 mm[Hg] Bertha Umaña blood pressure, syst olic, second observation 133 mm[Hg] Bertha Umaña oxygen saturation, oximetry 98 % Bertha Umaña pulse rate 70 /min Bertha Umaña blood pressure, diastolic 77 mm[Hg] Te ri Umaña blood pressure, systolic 104 mm[Hg] Ter i Umaña pulse rate #2 73 [facility], yen tolic, second observation 76 mm[Hg] Bertha Umaña blood pressure, syst olic, second observation 113 mm[Hg] Bertha Umaña oxygen saturation, oximetry 98 % Bertha Umaña pulse rate 74 /min Bertha Umaña blood pressure, diastolic 75 mm[Hg] Te ri Umaña blood pressure, systolic 125 mm[Hg] Ter i Umaña pulse rate #2 71 [facility] blood pressure, yen tolic, second observation 78 mm[Hg] Bertha Umaña blood pressure, syst olic, second observation 105 mm[Hg] Bertha Umaña oxygen saturation, oximetry 98 % Bertha Umaña pulse rate 82 /min Bertha Umaña blood pressure, diastolic 75 mm[Hg] Te ri Umaña blood pressure, systolic 132 mm[Hg] Ter i Umaña pulse rate #2 68 Bertha Umaña blood pressure, yen tolic, second observation 76 mm[Hg] Bertha Umaña blood pressure, syst olic, second observation 114 mm[Hg] Bertha Umaña oxygen saturation, oximetry 98 % Bertha Umaña pulse rate 81 /min Bertha Umaña blood pressure, diastolic 76 mm[Hg] Te ri Umaña blood pressure, systolic 118 mm[Hg] Ter i U[facility] pulse rate #2 68 [facility], yen tolic, second observation 74 mm[Hg] Bertha Umaña blood pressure, syst olic, second observation 134 mm[Hg] [facility], oximetry 98 % Bertha Umaña pulse rate 68 /min [facility] blood pressure, diastolic 84 mm[Hg] Te ri Umaña blood pressure, systolic 122 mm[Hg] Ter i Umaña pulse rate #2 66 [facility] blood pressure, yen tolic, second observation 85 mm[Hg] [facility] blood pressure, syst olic, second observation 120 mm[Hg] [facility] oxygen saturation, oximetry 98 % [facility] pulse rate 83 /min [facility] blood pressure, diastolic 77 mm[Hg] Te ri Umaña blood pressure, systolic 144 mm[Hg] Ter i Umaña pulse rate #2 72 Fredjosé miguel Sandovalso n blood pressure, yen tolic, second observation 74 mm[Hg] Fred Antoine blood pressure, syst olic, second observation 110 mm[Hg] Fred Antoine oxygen saturation, oximetry 96 % Fred Antoine pulse rate 66 /min Fred Antoine blood pressure, diastolic 62 mm[Hg] Ra maziny Antoine blood pressure, systolic 101 mm[Hg] Jorje Antoine pulse rate #2 72 Fred McPherso n blood pressure, yen tolic, second observation 77 mm[Hg] Fred Antoine blood pressure, syst olic, second observation 126 mm[Hg] Fred Antoine oxygen saturation, oximetry 96 % Fred Antoine pulse rate 71 /min Fred Antoine blood pressure, diastolic 62 mm[Hg] Ra ndy Antoine blood pressure, systolic 110 mm[Hg] Ran dy Antoine pulse rate #2 72 Fred McPherso n blood pressure, yen tolic, second observation 65 mm[Hg] Fred Antoine blood pressure, syst olic, second observation 126 mm[Hg] Fred Antoine oxygen saturation, oximetry 96 % Fred Antoine pulse rate 73 /min Fred Antoine blood pressure, diastolic 72 mm[Hg] Ra ndy Antoine blood pressure, systolic 105 mm[Hg] Ran dy Antoine pulse rate #2 73 Fred McPherso n blood pressure, yen tolic, second observation 67 mm[Hg] Fred Antoine blood pressure, syst olic, second observation 119 mm[Hg] Fred Antoine oxygen saturation, oximetry 96 % Fred Antoine pulse rate 72 /min Fred Antoine blood pressure, diastolic 65 mm[Hg] Ra ndy Antoine blood pressure, systolic 105 mm[Hg] Ran dy Antoine pulse rate #2 66 Fred McPherso n blood pressure, yen tolic, second observation 60 mm[Hg] Fred Antoine blood pressure, syst olic, second observation 107 mm[Hg] Fred Antoine oxygen saturation, oximetry 96 % Fred Antoine pulse rate 63 /min Fred Antoine blood pressure, diastolic 66 mm[Hg] Ra ndy Antoine blood pressure, systolic 111 mm[Hg] Ran dy Antoine pulse rate #2 70 Fred McPherso n blood pressure, yen tolic, second observation 64 mm[Hg] Fred Antoine blood pressure, syst olic, second observation 112 mm[Hg] Fred Antoine oxygen saturation, oximetry 96 % Fred Antoine pulse rate 75 /min Fred Antoine blood pressure, diastolic 70 mm[Hg] Ra maziny Antoine blood pressure, systolic 123 mm[Hg] Jorje dy Antoine pulse rate #2 74 Fred McPherso n blood pressure, yen tolic, second observation 73 mm[Hg] Fred Antoine blood pressure, syst olic, second observation 120 mm[Hg] Fred Antoine oxygen saturation, oximetry 96 % Fred Antoine pulse rate 72 /min Fred Antoine blood pressure, diastolic 66 mm[Hg] Ra retanay Antoine blood pressure, systolic 109 mm[Hg] Jorje canela Antoine pulse rate #2 66 Fred McPherso n blood pressure, yen tolic, second observation 67 mm[Hg] Fred Antoine blood pressure, syst olic, second observation 105 mm[Hg] Fred Antoine oxygen saturation, oximetry 96 % Fred Antoine pulse rate 64 /min Fred Antoine blood pressure, diastolic 60 mm[Hg] Ra retanay Antoine blood pressure, systolic 110 mm[Hg] Ran dy Antoine blood pressure, diastolic 72 mm[Hg] Pierson blood pressure, systolic 110 mm[Hg] Ryder Lomas pulse rate 72 /min Karla Lomas oxygen saturation, oximetry 99 % Karla Aldanaran respiratory rate E&M 16 /min Ryderyemorgan Lomas weight E&M 262 [lb_av] Karla Lomas pulse rate #2 72 Fred McPherso n blood pressure, yen tolic, second observation 60 mm[Hg] Fred Antoine blood pressure, syst olic, second observation 112 mm[Hg] Fred Antoine oxygen saturation, oximetry 96 % Fred Antoine pulse rate 69 /min Fred Antoine blood pressure, diastolic 85 mm[Hg] Ra ndy Antoine blood pressure, systolic 117 mm[Hg] Ran dy Antoine pulse rate #2 71 Fred McPherso n blood pressure, yen tolic, second observation 73 mm[Hg] Fred Antoine blood pressure, syst olic, second observation 110 mm[Hg] Fred Antoine oxygen saturation, oximetry 96 % Fred Antoine pulse rate 75 /min Fred Antoine blood pressure, diastolic 66 mm[Hg] Ra ndy Antoine blood pressure, systolic 115 mm[Hg] Ran dy Antoine pulse rate #2 64 Fred McPherso n blood pressure, yen tolic, second observation 78 mm[Hg] Fred Antoine blood pressure, syst olic, second observation 122 mm[Hg] Fred Antoine oxygen saturation, oximetry 96 % Fred Antoine pulse rate 73 /min Fred Antoine blood pressure, diastolic 70 mm[Hg] Ra ndy Antoine blood pressure, systolic 113 mm[Hg] Ran dy Antoine pulse rate #2 64 Fred McPherso n blood pressure, yen tolic, second observation 73 mm[Hg] Fred Antoine blood pressure, syst olic, second observation 121 mm[Hg] Fred Antoine oxygen saturation, oximetry 96 % Fred Antoine pulse rate 66 /min Fred Antoine blood pressure, diastolic 69 mm[Hg] Ra ndy Antoine blood pressure, systolic 129 mm[Hg] Ran dy Antoine pulse rate #2 73 Fred McPherso n blood pressure, yen tolic, second observation 75 mm[Hg] Fred Antoine blood pressure, syst olic, second observation 115 mm[Hg] Fred Antoine oxygen saturation, oximetry 96 % Fred Antoine pulse rate 80 /min Fred Antoine blood pressure, diastolic 99 mm[Hg] Ra ndy Antoine blood pressure, systolic 135 mm[Hg] Ran dy Antoine pulse rate #2 67 Fred McPherso n blood pressure, yen tolic, second observation 69 mm[Hg] Fred Antoine blood pressure, syst olic, second observation 112 mm[Hg] Fred Antoine oxygen saturation, oximetry 96 % Fred Antoine pulse rate 68 /min Fred Antoine blood pressure, diastolic 72 mm[Hg] Ra ndy Antoine blood pressure, systolic 135 mm[Hg] Ran dy Antoine pulse rate #2 67 Fred McPherso n blood pressure, yen tolic, second observation 73 mm[Hg] Fred Antoine blood pressure, syst olic, second observation 123 mm[Hg] Fred Antoine oxygen saturation, oximetry 96 % Rfed Antoine pulse rate 74 /min Fred Antoine blood pressure, diastolic 68 mm[Hg] Ra ndy Antoine blood pressure, systolic 138 mm[Hg] Ran dy Antoine pulse rate #2 73 Fred McPherso n blood pressure, yen tolic, second observation 72 mm[Hg] Fred Antoine blood pressure, syst olic, second observation 108 mm[Hg] Fred Antoine oxygen saturation, oximetry 96 % Fred Antoine pulse rate 74 /min Fred Antoine blood pressure, diastolic 71 mm[Hg] Ra ndy Antoine blood pressure, systolic 118 mm[Hg] Ran dy Antoine pulse rate #2 68 Fred McPherso n blood pressure, yen tolic, second observation 65 mm[Hg] Fred Antoine blood pressure, syst olic, second observation 113 mm[Hg] Fred Antoine oxygen saturation, oximetry 96 % Fred Antoine pulse rate 79 /min Fred Antoine blood pressure, diastolic 63 mm[Hg] Ra ndy Antoine blood pressure, systolic 140 mm[Hg] Ran dy Antoine pulse rate #2 71 Fred McPherso n blood pressure, yen tolic, second observation 73 mm[Hg] Fred Antoine blood pressure, syst olic, second observation 120 mm[Hg] Fred Antoine oxygen saturation, oximetry 96 % Fred Antoine pulse rate 78 /min Fred Antoine blood pressure, diastolic 69 mm[Hg] Ra ndy Antoine blood pressure, systolic 134 mm[Hg] Ran dy Antoine pulse rate #2 63 Fred McPherso n blood pressure, yen tolic, second observation 67 mm[Hg] Fred Antoine blood pressure, syst olic, second observation 107 mm[Hg] Fred Antoine oxygen saturation, oximetry 96 % Frde Antoine pulse rate 70 /min Fred Antoine blood pressure, diastolic 57 mm[Hg] Ra ndy Antoine blood pressure, systolic 116 mm[Hg] Ran dy Antoine pulse rate #2 68 Fred McPherso n blood pressure, yen tolic, second observation 71 mm[Hg] Fred Antoine blood pressure, syst olic, second observation 118 mm[Hg] Fred Antoine oxygen saturation, oximetry 96 % Fred Antoine pulse rate 66 /min Fred Antoine blood pressure, diastolic 63 mm[Hg] Ra maziny Antoine blood pressure, systolic 111 mm[Hg] Ran dy Antoine pulse rate #2 60 [facility] blood pressure, yen tolic, second observation 75 mm[Hg] [facility] blood pressure, syst olic, second observation 104 mm[Hg] [facility] oxygen saturation, oximetry 97 % [facility] pulse rate 64 /min [facility] blood pressure, diastolic 73 mm[Hg] Be [facility] blood pressure, systolic 111 mm[Hg] [facility] pulse rate #2 65 Fred McPherso n blood pressure, yen tolic, second observation 75 mm[Hg] Fred Antoine blood pressure, syst olic, second observation 115 mm[Hg] Fred Antoine oxygen saturation, oximetry 96 % Fred Antoine pulse rate 64 /min Fred Antoine blood pressure, diastolic 66 mm[Hg] Ra retanay Antoine blood pressure, systolic 107 mm[Hg] Ran dy Antoine pulse rate #2 70 Fred McPherso n blood pressure, yen tolic, second observation 78 mm[Hg] Fred Antoine blood pressure, syst olic, second observation 121 mm[Hg] Fred Antoine oxygen saturation, oximetry 96 % Fred Antoine pulse rate 77 /min Fred Antoine blood pressure, diastolic 78 mm[Hg] Ra retanay Antoine blood pressure, systolic 131 mm[Hg] Jorje canela Antoine pulse rate #2 63 Fredjosé miguel Sandovalso n blood pressure, yen tolic, second observation 74 mm[Hg] [facility] blood pressure, syst olic, second observation 129 mm[Hg] Fred Antoine oxygen saturation, oximetry 96 % Fred Antoine [facility] 62 [facility], [facility][Hg] Ra mazinjosé miguel Antoine blood pressure, systolic 127 mm[Hg] Ran hilton Antoine pulse rate #2 59 Fredjosé miguel Sandovalso n blood pressure, yen tolic, second observation 74 mm[Hg] [facility] blood pressure, syst olic, second observation 113 mm[Hg] Fred Antoine oxygen saturation, oximetry 95 % [facility]min [facility] blood pressure, diastolic 60 mm[Hg] Ra retanajosé miguel Antoine blood pressure, systolic 108 mm[Hg] Jorje canela Antoine blood pressure, diastolic, left arm 66 mm [Hg] Rydermorgan Lomas blood pressure, systolic, left arm 107 mm [Hg] [facility], [facility], right arm 67 m m[Hg] Rydermorgan Lomas blood pressure, systolic, right arm 100 m m[Hg] Rydermorgan Lomas blood pressure, diastolic 66 mm[Hg] [facility]erson blood pressure, systolic 107 mm[Hg] Ryder Lomas pulse rate 67 /min [facility] oxygen saturation, oximetry 99 % Rydermorgan Merrillan respiratory rate E&M 16 /min Rydermorgan Lomas weight E&M 264 [lb_av] Rydermorgan Aldanaran blood pressure, diastolic, left arm 69 mm [Hg] Joe Dillard RN blood pressure, systolic, left arm 110 mm [Hg] Joe Dillard RN blood pressure, diastolic, right arm 64 m m[Hg] Joe Dillard RN blood pressure, systolic, right arm 104 m m[Hg] Joe Dillard RN blood pressure, diastolic 69 mm[Hg] Willi Dillard RN blood pressure, systolic 110 mm[Hg] Joe Dillard RN pulse rate 71 /min Joe Dillard RN oxygen saturation, oximetry 99 % Joe Dillard RN respiratory rate E&M 16 /min Joe millard RN weight E&M 254 [lb_av] Joe Dillard RN blood pressure, diastolic, left arm 64 mm [Hg] Emma O'Cayden blood pressure, systolic, left arm 123 mm [Hg] Emma O'Cayden blood pressure, diastolic, right arm 66 m m[Hg] Emma O'Cayden blood pressure, systolic, right arm 123 m m[Hg] Emma O'Cayden blood pressure, diastolic 66 mm[Hg] [facility] O'Cayden blood pressure, systolic 123 mm[Hg] [facility] nita O'Cayden pulse rate 72 /min Emma O'Cayden oxygen saturation, oximetry 98 % Emma O'Cayden respiratory rate E&M 18 /min Emma O'Cayden weight E&M 264 [lb_av] Emma O'Cayden blood pressure, diastolic, left arm 62 mm [Hg] Joe Dillard RN blood pressure, systolic, left arm 104 mm [Hg] Joe Dillard RN blood pressure, diastolic, right arm 71 m m[Hg] Joe Dillard RN blood pressure, systolic, right arm 111 m m[Hg] Joe Dillard RN blood pressure, diastolic 62 mm[Hg] Willi Dillard RN blood pressure, systolic 104 mm[Hg] Joe Maganas RN pulse rate 61 /min Joe Maganas RN oxygen saturation, oximetry 99 % Joe Maganajoshua OG respiratory rate E&M 16 /min Joe millard RN weight E&M 251 [lb_av] Joe Maganas RN blood pressure, diastolic, left arm 75 mm [Hg] Joe Dillard RN blood pressure, systolic, left arm 117 mm [Hg] Joe Maganas RN blood pressure, diastolic, right arm 67 m m[Hg] Joe Maganas RN blood pressure, systolic, right arm 116 m m[Hg] Joe Dillard RN blood pressure, diastolic 75 mm[Hg] Willi grimaldo Dillard RN blood pressure, systolic 117 mm[Hg] Joe Dillard RN pulse rate 63 /min Joe Dillard RN oxygen saturation, oximetry 99 % Joe Dillard RN respiratory rate E&M 18 /min Joe millard RN weight E&M 252 [lb_av] Joe Dillard RN ALLERGIES Allergy Name Onset Date Reaction Criticality Status JARDIANCE Hives Hives High Criticality active SHRIMP Low Criticality active RESULTS Date Observation Value Provider Reference Range Interpretation Location 05/26 nitrate usage 0 Flavia G Leger 05/25 nitrate usage 0 Flavia G Leger 05/18 nitrate usage 0 Flavia G Leger platelet count 262 10*3/mm3 [facility] platelet count 262 10*3/uL [facility] red blood cell distribution width 14.2 % [facility] mean corpuscular hemoglobin concentration, RBC 32.4 g/dL [facility] mean corpuscular hemoglobin, RBC 27.9 pg [facility] mean corpuscular volume, RBC 86.2 fL [facility] hematocrit, blood 42.3 % [facility] hemoglobin, blood 13.7 g/dL [facility] erythrocyte (RBC) count 4.91 10*6/mm3 [facility] leukocyte count, blood 8.2 10*3/mm3 [facility] B-type natriuretic peptide 6.7 pg/mL [facility] carbon dioxide, venous blood 28 mmol/L [facility] protein, total, serum 7.4 g/dL [facility] albumin, serum 4.0 g/dL [facility] bilirubin, serum, total 0.60 mg/dL [facility] alkaline phosphatase, serum 93 1/L [facility] alanine aminotransferase (SGPT), serum 14 1/L [facility] aspartate aminotransferase (SGOT), serum 19 1/L [facility] calcium, serum 9.6 mg/dL [facility] blood glucose, random 350 mg/dL [facility] creatinine, serum 0.59 mg/dL [facility] urea nitrogen, blood 11 mg/dL [facility] carbon dioxide, serum, total 28 mmol/L [facility] chloride, serum 101 mmol/L [facility] potassium, serum 3.9 mmol/L [facility] sodium, serum 135 mmol/L [facility] 12/06 LDL cholesterol, serum 111 mg/dL [facility] 07/23 pro brain natriuretic peptide 154 pg/mL [facility] 0-249 07/23 microalbumin/creat inine ratio, urine <8.9 mg/g creat [facility] 0.0-30.0 07/23 microalbumin, random, urine <3.0 ug/mL [facility] Not Estab. 07/23 creatinine, random, urine 33.6 mg/dL [facility] Not Estab. 07/23 hemoglobin A1C, blood, as % of total hemoglobin 8.5 % [facility] 4.8-5.6 High 07/23 calcium, serum 9.0 mg/dL [facility] 8.7-10.2 07/23 carbon dioxide, venous blood 22 mmol/L [facility] 18-29 07/23 chloride, serum 98 mmol/L [facility] 96-106 07/23 potassium, serum 3.7 mmol/L [facility] 3.5-5.2 07/23 sodium, serum 136 mmol/L [facility] [id number] 9669/0 5/08 urea nitrogen/creatinin e ratio, serum 12 [facility] 9-23 07/23 eGFR if 105 mL/min/{1.73 _m2} [facility] >59 07/23 eGFR if not 91 mL/min/{1.73 _m2} [facility] >59 07/23 creatinine, serum 0.78 mg/dL [facility] 0.57-1.00 07/23 urea nitrogen, blood 9 mg/dL [facility] 6-24 07/23 blood glucose, random 352 mg/dL [facility] 65-99 High 12/14 albumin/creatinine ratio, urine 3 MG/G CREATININE [facility] 0-30 12/14 creatinine, random, urine 94.03 (?) [facility] 12/14 microalbumin, urine 3 [facility] 0-30 12/14 Glucose Urine 3+ [facility] Negative Abnormal 12/06 international normalized ratio (INR) 1.0 [facility] 0.9-1.1 12/06 prothrombin time (patient) 10.3 Seconds [facility] 9.0-11.5 12/06 platelet count 341 THOUSAND/UL [facility] [id number]/0 9/21 Absolute Basophils 0.0 CELLS/UL [facility] 0.0-0.2 12/06 Absolute Monocytes 0.7 CELLS/UL [facility] 0.2-1.0 12/06 Absolute Lymphocytes 2.51 CELLS/UL [facility] 0.85-3.90 12/06 Absolute Neutrophils 5.7 CELLS/UL [facility] 1.5-7.8 12/06 mean corpuscular volume, RBC 88 fL [facility] 75-100 12/06 mean corpuscular hemoglobin concentration, RBC 32 G/DL [facility] 31-38 12/06 mean corpuscular hemoglobin, RBC 28 pg [facility] 25-35 12/06 hematocrit, blood 40 % [facility] 35-55 12/06 hemoglobin, blood 12.8 g/dL [facility] 11.5-16.5 12/06 erythrocyte count, whole blood 4.6 MILLION/UL [facility] 3.5-5.5 12/06 very low density lipoproteins 23.2 mg/dL [facility] 5.0-40.0 12/06 LDL/HDL (low-density lipoprotein/high-d ensity lipoprotein) ratio 3 mg/dL [facility] 0-5 12/06 lipoprotein, beta, serum, point, quantitative, calculated 111 mg/dL [facility] 0-100 High 12/06 HDL cholesterol, serum 38 mg/dL [facility] 45-65 Low 12/06 cholesterol, serum 172 mg/dL [facility] 0-200 12/06 triglyceride, serum, fasting 116 mg/dL [facility] 0-150 12/06 Estimated Glomerular Filtration Rate (calc) 100 (?) [facility] >59 12/06 chloride, serum 99 mmol/L [facility] 98-107 12/06 potassium, serum 4.4 mmol/L [facility] 3.5-5.1 12/06 sodium, serum 138 mmol/L [facility] [phone]/0 9/21 creatinine, serum 0.7 mg/dL [facility] 0.5-0.9 12/06 carbon dioxide, venous blood 26 mmol/L [facility] 22-29 12/06 calcium, serum 9.3 mg/dL [facility] 8.6-10.2 12/06 urea nitrogen, blood 8 mg/dL [facility] 6-20 12/06 blood glucose, random 296 mg/dL [facility] 74-99 High 11/04 international normalized ratio (INR) 2.32 Laly Grimm 11/04 potassium, serum 4.1 mmol/L [facility] 11/04 sodium, serum 139 mmol/L [facility] 11/04 creatinine, serum 0.76 mg/dL [facility] 11/04 [facility] 288 [facility] hematocrit, blood 36.1 % Laly Alfa 11/03 coagulation managed by Joe Dillard RN Joe Maganas RN 11/03 international normalized ratio (INR) 2.2 Joe Maganas RN Normal 11/03 prothrombin time (patient) 22.0 s Joe Maganas RN 10/30 coagulation managed by Joe Maganajoshua OG Joe Maganas RN 10/30 international normalized ratio (INR) 2.1 Joe Maganas RN Normal 10/30 prothrombin time (patient) 21.3 s Joe Dillard RN 10/23 coagulation managed by Joe Maganajoshua OG Joe Maganas RN 10/23 international normalized ratio (INR) 2.6 Joe Maganas RN Normal 10/23 prothrombin time (patient) 25.5 s Joe Maganas RN 10/16 coagulation managed by Joe Maganas RN Joe Maganas RN 10/16 international normalized ratio (INR) 2.1 Joe Maganas EARLE Normal 10/16 prothrombin time (patient) 21.3 s Joe Dillard RN 10/09 coagulation managed by Joe Maganas EARLE Joe Dillard RN 10/09 international normalized ratio (INR) 1.7 Kelly Villalpandocony Normal 10/09 prothrombin time (patient) 17.3 s Kelly Figueroa 05/10 platelet count 342 10*3/mm3 Lacey Harris 05/10 hematocrit, blood 38.4 % Lacey Harris 05/10 international normalized ratio (INR) 1.0 Lacey Harris 05/10 thyroid stimulating hormone, serum 0.975 u[IU]/mL Lacey Harris 05/10 creatinine, serum 0.72 mg/dL Lacey Harris 05/10 potassium, serum 4.1 mmol/L Lacey Harris 05/10 sodium, serum 140 mmol/L [facility] 12/15 international normalized ratio (INR) 1.0 [facility] 12/02 thyroid stimulating hormone, serum 1.800 u[IU]/mL [facility] 12/02 potassium, serum 4.2 mmol/L [facility] 12/02 sodium, serum 141 mmol/L [facility] 12/02 creatinine, serum 0.68 mg/dL [facility] 12/02 platelet count 375 10*3/uL [facility] 12/02 hematocrit, blood 37.7 % [facility] 07/16 triglyceride, serum, fasting 70 mg/dL [facility] 07/16 HDL cholesterol, serum 48 mg/dL [facility] 07/16 LDL cholesterol, serum 108 mg/dL [facility] 07/16 cholesterol, serum 169 mg/dL [facility] 06/03 nitrate usage 0 [facility] 05/31 nitrate usage 0 [facility] 05/30 nitrate usage 0 [facility] 05/29 nitrate usage 0 [facility] 05/28 nitrate usage 0 [facility] 05/27 nitrate usage 0 [facility] 05/24 nitrate usage 0 [facility] 05/23 nitrate usage 0 [facility] 05/22 nitrate usage 0 [facility] 05/21 nitrate usage 0 [facility] 05/20 nitrate usage 0 [facility] 05/16 nitrate usage none [facility] nitrate usage none [facility] 05/15 nitrate usage none [facility] 05/14 [facility] usage none [facility] nitrate usage none [facility] 05/10 nitrate usage none [facility] 05[facility]09 [facility] nitrate usage none [facility] 05/03 nitrate usage none Fred Antoine 05/02 [facility] nitrate usage none [facility] 04/17 nitrate usage none [facility] 04/09 mucus on urinalysis Yes [facility] 04/09 WBC urine on microscopy 7 [HPF] [facility] 04/09 RBC urine by microscopy 314 [facility] 04/09 leukocyte esterase, urine, by dipstick 75 Lion/ul [facility] 04/09 urobilinogen, urine, semiquantitative (dipstick) normal [facility] 04/09 nitrite, urine, semiquantitative Negative [facility] 04/09 RBC, urine, dipstick 1.0 mg/dL [facility] 04/09 bilirubin, urine Negative [facility] 04/09 ketones, urine, by test strip Negative [facility] 04/09 glucose, urine, semiquantitative Negative [facility] 04/09 protein, urine, semiquantitative (dipstick) Negative [facility] 04/09 pH, urine, semiquantitative 5.0 [facility] 04/09 specific gravity, urine 1.009 [facility] 04/09 urine color Yellow [facility] 04/09 appearance, urine Clear [facility] 04/09 lipase, serum 23 1/L [facility] 04/09 amylase, serum 149 1/L [facility] 04/09 albumin/globulin ratio, serum 1.0 [facility] 04/09 protein, total, serum 7.7 g/dL [facility] 04/09 albumin, serum 3.8 g/dL [facility] 04/09 bilirubin, serum, total 0.3 mg/dL [facility] 04/09 alkaline phosphatase, serum 71 1/L [facility] 04/09 alanine aminotransferase (SGPT), serum 14 1/L [facility] 04/09 aspartate aminotransferase (SGOT), serum 16 1/L [facility] 04/09 calcium, serum 2.26 mg/dL [facility] 04/09 blood glucose, fasting 113 mg/dL [facility] 04/09 creatinine, serum 0.7 mg/dL [facility] 04/09 urea nitrogen, blood 9 mg/dL [facility] 04/09 carbon dioxide, serum, total 28 mmol/L [facility] 04/09 chloride, serum 101 mmol/L [facility] 04/09 potassium, serum 3.8 mmol/L [facility] 04/09 sodium, serum 138 mmol/L [facility] 04/09 platelet count 375 10*3/uL [facility] 04/09 red blood cell distribution width 18.0 % [facility] 04/09 mean corpuscular hemoglobin concentration, RBC 33.3 g/dL [facility] 04/09 mean corpuscular hemoglobin, RBC 26.2 pg [facility] 04/09 mean corpuscular volume, RBC 78.6 fL [facility] 04/09 hematocrit, blood 35.7 % [facility] 04/09 hemoglobin, blood 11.9 g/dL [facility] 04/09 erythrocyte (RBC) count 4.54 10*6/mm3 [facility] 04/09 monocyte count, blood 0.88 10*3/mm3 [facility] 04/09 lymphocyte count, blood 3.24 10*3/mm3 [facility] 04/09 monocytes as percent of blood leukocytes 8.0 % [facility] 04/09 lymphocytes as percent of blood leukocytes 29.4 % [facility] 04/09 leukocyte count, blood 11.0 10*3/mm3 [facility] 04/14 mucus on urinalysis Yes [facility] 04/14 epithelial cells, urine, per microscopy 0-10 [facility] 04/14 WBC urine on microscopy 0-5 [facility] 04/14 bacteria, urine microscopy few [facility] 04/14 RBC urine by microscopy 0-3 [facility] 04/14 urobilinogen, urine, semiquantitative (dipstick) 0.2 [facility] 04/14 nitrite, urine, semiquantitative Negative [facility] 04/14 RBC, urine, dipstick 3+ [facility] 04/14 bilirubin, urine Negative [facility] 04/14 ketones, urine, by test strip Trace [facility] 04/14 glucose, urine, semiquantitative Negative [facility] 04/14 protein, urine, semiquantitative (dipstick) [facility] pH, urine, semiquantitative 6.0 [facility] 04/14 specific gravity, urine 1.[facility] urine color Yellow [facility] 04/14 appearance, urine Turibd [facility] 04/14 vitamin D 25-hydroxy, serum 14.1 ng/mL [facility] 04/14 folate, serum 11.4 ng/mL [facility] 04/14 uric acid, serum 3.9 mg/dL [facility] 04/14 thyroid stimulating hormone, serum 1.480 u[IU]/mL [facility] 04/14 thyroxine, serum, free 1.09 ng/dL [facility] 04/14 albumin/globulin ratio, serum 1.1 [facility] 04/14 protein, total, serum 7.7 g/dL [facility] 04/14 albumin, serum 4.1 g/dL [facility] 04/14 bilirubin, serum, total 0.3 mg/dL [facility] 04/14 alkaline phosphatase, serum 82 1/L [facility] 04/14 alanine aminotransferase (SGPT), serum 13 1/L [facility] 04/14 aspartate aminotransferase (SGOT), serum 20 1/L [facility] 04/14 calcium, serum 9.4 mg/dL [facility] 04/14 blood glucose, fasting 107 mg/dL [facility] 04/14 creatinine, serum 0.84 mg/dL [facility] 04/14 urea nitrogen, blood 12 mg/dL [facility] 04/14 carbon dioxide, serum, total 23 mmol/L [facility] 04/14 chloride, serum 101 mmol/L [facility] 04/14 potassium, serum 3.7 mmol/L [facility] 04/14 sodium, serum 140 mmol/L [facility] 04/14 platelet count 347 10*3/uL [facility] 04/14 red blood cell distribution width 19.0 % [facility] 04/14 mean corpuscular hemoglobin concentration, RBC 32.3 g/dL [facility] 04/14 mean corpuscular hemoglobin, RBC 27.4 pg [facility] 04/14 mean corpuscular volume, RBC 85 fL [facility] 04/14 hematocrit, blood 37.6 % [facility] 04/14 hemoglobin, blood 12.1 g/dL [facility] 04/14 erythrocyte (RBC) count 4.43 10*6/mm3 [facility] 04/14 monocyte count, blood 1.0 10*3/mm3 [facility] 04/14 lymphocyte count, blood 2.6 10*3/mm3 [facility] 04/14 monocytes as percent of blood leukocytes 10 % [facility] 04/14 lymphocytes as percent of blood leukocytes 27 % [facility] 04/14 leukocyte count, blood 9.6 10*3/mm3 [facility] HISTORY OF MEDICATION USE Medication Status Instructions Dates Provider Indications Com ments Percocet 5-325 mg tablet active 1 tablet by mouth every six hours as needed for pain 10/04 Giovanni Hassan MD cholecalciferol (vitamin D3) 1,250 mcg (50,000 unit) capsule active 1 capsule by mouth once a week 04/04 Kelly Figueroa Xarelto 20 mg tablet active 1 tablet every night Elba Haddad MD Coreg 3.125 mg tablet active 1 tablet twice a day Giovanni Hassan MD Aware that patient is taking Sotalol 80mg BID XARELTO 20 MG ORAL TABLET completed take one tablet daily 12/10 - Elba Haddad MD MELOXICAM TABLET completed once daily - 04/04 Denise Martines LANTUS 100 UNIT/ML SUBCUTANEOUS SOLUTION completed 15 units once daily 07/15 - 04/04 Denise Martines XARELTO 10 MG ORAL TABLET completed One tab. daily with evening meal - 12/10 Camelia Clark RN sotalol 80 mg tablet active 1 tablet twice a day 04/01 Giovanni Hassan MD Aware that patient is taking Coreg 3.125mg ASPIRIN 81 MG ORAL TABLET completed ONE TAB. DAILY 04/28 - 10/24 Kostas Patel LISINOPRIL 20 MG ORAL TABLET completed ONE TAB. DAILY 04/28 - 10/26 Rowena Garcia MAGNESIUM OXIDE 400 MG ORAL TABLET completed ONE TAB TWICE A DAY 04/28 - 10/24 Kostas Patel Needs appointment COUMADIN 5 MG ORAL TABLET completed ONE TAB DAILY 04/28 - 10/24 Kostas Patel metformin 500 mg tablet active twice a day 04/28 Jacque Robertson RANEXA 500 MG ORAL TABLET EXTENDED RELEASE 12 HOUR completed ONE TAB. TWICE DAILY for chronic angina 09/03 - 10/24 Kostas Patel Lipitor 40 mg tablet active 1 tablet once a day 04/14 Giovanni GARCIAOR-CON M10 10 MEQ ORAL TABLET EXTENDED RELEASE completed One tab daily 12/14 - 10/24 Kelly Figueroa needs appointment Lasix 40 mg tablet active 1 tablet by mouth once a day 04/19 Giovanni BARRETT CD 240 MG ORAL CAPSULE EXTENDED RELEASE 24 HOUR completed one tablet each night 11/27 - 10/24 Emily bertrand amiodarone AMIODARONE HCL 200 MG ORAL TABLET completed 2 TABs. DAILY 11/06 - 11/27 Elba Haddad MD COUMADIN 5 MG ORAL TABLET completed one tablet daily EXCEPT on Tues and Fri take 1 1/2 tab - 10/24 Collette Shaw start now SIMVASTATIN 20 MG ORAL TABLET completed ONE TAB. DAILY - 05/11 Giovanni Hassan MD CRESTOR 20 MG ORAL TABLET completed ONE TAB. DAILY 06/17 - 10/24 Jacque Marcelo MAGNESIUM 400 MG CAPS active 1 twice a day Romi Santiago ASPIRIN 325 MG ORAL TABLET completed ONE TAB. DAILY - 04/28 Elba Haddad MD METOPROLOL TARTRATE 50 MG ORAL TABLET completed 1 twice daily - 10/24 Collette Shaw NITROSTAT 0.4 MG SUBLINGUAL TABLET SUBLINGUAL completed One tab. under tongue as needed. May repeat twice in 10 minutes. - 10/24 Emily Baron FLEXERIL 10 MG TABS completed - 10/24 Emma O'Cayden ADVAIR DISKUS 500-50 MCG/DOSE INHALATION AEROSOL POWDER BREATH ACTIVATED completed 1 puff twice daily - 10/24 Emily Baron METHOCARBAMOL 750 MG ORAL TABLET completed one tab daily - 10/24 Karla Lomas TRAZODONE HCL TABLET completed 100mg 1/2 to 1 tab as needed - 07/16 Karla Lomas ProAir HFA 90 mcg/actuation HFA aerosol inhaler active 2 puff four times a day as needed Kostas Patel SYMBICORT AEROSOL completed - 09/11 Joe Dillard RN VENTOLIN HFA 108 (90 Base) MCG/ACT INHALATION AEROSOL SOLUTION completed - 10/24 Emma O'Cayden HYDROCHLOROTHIAZID E 25 MG ORAL TABLET completed ONE TAB DAILY 04/11 - 05/10 Chris Crews MD VITAMIN D 02376 UNIT CAPS completed take one capsule by mouth once a week with food - 10/24 Emily Baron LIPITOR 10 MG ORAL TABLET completed ONE TAB. DAILY - 09/11 Joe Dillard RN EQ IBUPROFEN TABLET completed 800mg one tab 3 times daily - 07/16 Karla Lomas RANITIDINE HCL 300 MG ORAL TABLET completed one tab daily 30 minutes prior to meals - 10/24 Kostas Patel FOLIC ACID TABLET completed 1mg one tab. daily - 10/24 Kostas Patel SOCIAL HISTORY Date Observation Value Provider social history E&M Marital Statu s: Single L agueda alone Smoking History: Fadia diamond is a former smoker. Gayathri Alvarado social history reviewed E&M revi ewed - no changes required Gayathri Alvarado caffeine use, averag e drinks per day 1+ Emma O'Cayden passive cigarette sm alejandro exposure no Emma O'Cayden smoking, year quit 2000 Emma O' [place]den smoking history, tot al pack/year 2 Emma O'Cayden cigarette use yes Emma O'Cayden smoking status Former smoker Emma O'Maria R l social history E&M Marital Statu s: Single L agueda alone Smoking History: Fadia diamond is a former smoker. Giovanni Hassan MD social history reviewed E&M revi ewed - no changes required Giovanni Hassan MD caffeine use, averag e drinks per day 1+ Bella Estrada passive cigarette sm alejandro exposure no Bella Estrada smoking, year quit 2000 Bella Estrada smoking history, tot al pack/year 2 Bella Estrada cigarette use yes Bella Ward nd smoking status Former smoker Bella Ekta gorman social history reviewed E&M revi ewed - no changes required Gayathri Alvarado social history reviewed E&M revi ewed - no changes required Gayathri Alvarado social history reviewed E&M revi ewed - no changes required Tony Cummings caffeine use, averag e drinks per day 1+ Kelly Figueroa passive cigarette sm alejandro exposure no Kelly Figueroa smoking, year quit 2000 Kelly esquivel smoking history, tot al pack/year 2 Kelly Figueroa cigarette use yes Kelly quiñonez smoking status Former smoker Kelly morales social history reviewed E&M revi ewed - no changes required [facility] caffeine use, averag e drinks per day 1+ Rowena Radha passive cigarette sm alejandro exposure no Rowena Radha smoking, year quit 2000 Rowenamukund Heard sby smoking history, tot al pack/year 2 [facility] cigarette use yes Rowena Radha smoking status Former smoker Rowena [facility] social history reviewed E&M revi ewed - no changes required [facility] caffeine use, averag e drinks per day 1+ Tonsha Zavala passive cigarette sm alejandro exposure no Tonsha Zavala smoking, year quit 2000 Tonsha Mo ss smoking history, tot al pack/year 2 Tonsha Zavala cigarette use yes Tonsha Zavala smoking status Former smoker Tonsha Zavala social history reviewed E&M revi ewed - no changes required Giovanni Hassan MD caffeine use, averag e drinks per day 1+ Denise Martines passive cigarette sm alejandro exposure no Denise Martines smoking, year quit 2000 Denise arciniega smoking history, tot al pack/year 2 Denise Martines cigarette use yes Denise russo smoking status Former smoker Denise uriarte social history E&M Marital Statu s: Single L agueda alone Smoking History: Fadia diamond is a former smoker. Giovanni Hassan MD social history reviewed E&M revi ewed - no changes required Giovanni Hassan MD number of grandchildren Giovanni Hassan MD alcohol use, average drinks per day 0 /d Emma O'Cayden alcohol use no Emma O'Cayden caffeine use, averag e drinks per day 1+ Emma O'Cayden drug use no Emma O'Cayden passive cigarette sm alejandro exposure no Emma O'Cayden smoking, year quit 2000 Emma O' [place] smoking history, tot al pack/year 2 Emma O'Cayden cigarette use yes Emma O'Cayden smoking status Former smoker Emma Tracey'Maria R l number of grandchildren Yoana Griggs MD social history E&M Marital Statu s: Single L agueda alone Smoking History: Fadia diamond is a former smoker. Yoana Griggs MD social history reviewed E&M revi ewed - no changes required Yoana Griggs MD smoking status Former smoker Gabrielle garcias smoking, year quit 2000 [facility] cigarette use yes [facility] alcohol use, average drinks per day 0 /d [facility] alcohol use no Tony Lundb erg caffeine use, averag e drinks per day 1+ [facility] Tony Lundb erg passive cigarette sm alejandro exposure no [facility] smoking status Former smoker Tony [facility] social history E&M Marital Statu s: Single L agueda alone Smoking History: Fadia diamond is a former smoker. Giovanni Hassan MD social history reviewed E&M revi ewed - no changes required Giovanni Hassan MD alcohol use, average drinks per day 0 /d Calista Singh alcohol use no Calista Singh caffeine use, averag e drinks per day 1+ Tony Cummings drug use no Calista Singh passive cigarette sm alejandro exposure no Calistaaltagracia Singh smoking status Former smoker Calista Singh smoking status Former smoker Elba singleton MD social history E&M Marital Statu s: Single L agueda alone Smoking History: Fadia diamond is a former smoker. Elba Haddad MD social history reviewed E&M revi ewed - no changes required Elba Haddad MD alcohol use, average drinks per day 0 /d Kelly Figueroa alcohol use no Kelly Akers lder caffeine use, averag e drinks per day yes Kelly Figueroa drug use no Kelly Oswald lder passive cigarette sm alejandro exposure no Kelly Figueroa social history E&M Marital Statu s: Single L agueda alone Smoking History: Fadia diamond is a former smoker. Givoanni Hassan MD social history reviewed E&M revi ewed - no changes required Giovanni Hassan MD alcohol use, average drinks per day 0 /d Kostas Patel alcohol use no Kostas orourke caffeine use, averag e drinks per day 1+ Giovanni Hassan MD drug use no Kostas orourke passive cigarette sm alejandro exposure no Kostas Patel smoking status Former smoker Kostas St dietz social history reviewed E&M revi ewed - no changes required Elba Haddad MD alcohol use, average drinks per day 0 /d Emily Baron alcohol use no Emily Baron caffeine use, averag e drinks per day yes Emily Baron drug use no Emily Baron passive cigarette sm alejandro exposure no Emily Baron smoking status Former smoker Emily henriquez social history reviewed E&M revi ewed - no changes required Elba Haddad MD alcohol use, average drinks per day 0 /d Jacque Robertson alcohol use no Jacque Robertson caffeine use, averag e drinks per day yes Jacque Robertson drug use no Jacque Robertson passive cigarette sm alejandro exposure no Jacque Robertson smoking status Former smoker Jacque Granados [place] social history E&M Marital Statu s: Single L agueda alone Smoking History: Fadia diamond is a former smoker. Giovanni Hassan MD social history reviewed E&M revi ewed - no changes required Giovanni Hassan MD alcohol use, average drinks per day 0 /d Kostas Patel alcohol use no Kostas Garo sharad caffeine use, averag e drinks per day yes Kostas Patel drug use no Kostas Wyman sharad passive cigarette sm alejandro exposure no KostasMerna Patel smoking status Former smoker Kostas Andrews mirela social history reviewed E&M revi ewed - no changes required Giovanni Hassan MD alcohol use, average drinks per day 0 /d Kostas Patel alcohol use no Kostas Garo sharad caffeine use, averag e drinks per day yes Kostas Patel drug use no Kostas Wyman sharad passive cigarette sm alejandro exposure no Kostas Patel smoking/tobacco cess ation, patient education and counseling yes Kostas Patel smoking status Former smoker Kostas Andrews mirela smoking/tobacco cess ation, patient education and counseling yes Joelle Craven social history reviewed E&M revi ewed - no changes required Joelle Blunt smoking status Former smoker Collette urban social history reviewed E&M revi ewed - no changes required Joelle Blunt alcohol use, average drinks per day 0 /d Jacque Robertson alcohol use no Jacque Robertson caffeine use, averag e drinks per day yes Jacque Robertson drug use no Jacque Robertson passive cigarette sm alejandro exposure no Jacque Robertson smoking/tobacco cess ation, patient education and counseling yes Jacque Robertson smoking status Former smoker Jacque Granados [place] smoking/tobacco cess ation, patient education and counseling yes Joelle Craven alcohol use, average drinks per day 0 /d Giovanni Hassan MD alcohol use no Giovanni Hassan MD caffeine use, averag e drinks per day yes Giovanni Hassan MD drug use no Giovanni Hassan MD passive cigarette sm alejandro exposure no Giovanni Hassan MD smoking status Former smoker Giovanni Hassan MD social history reviewed E&M revi ewed - no changes required Giovanni Hassan MD social history reviewed E&M revi ewed - no changes required Elba Haddad MD alcohol use no Kelly Oswald cifuentes smoking status Former smoker Kelly Villalpandogio nfelder smoking status Former smoker Joelle Norah ortiz social history reviewed E&M revi ewed - no changes required Joelleher Craven alcohol use, average drinks per day 0 /d Jacque Martínezann caffeine use, averag e drinks per day yes Jacque Martínezann drug use no Jacque Robertson passive cigarette sm alejandro exposure no Jacque Robertson social history reviewed E&M reviewed Joelle Craven social history reviewed E&M reviewed Joe Dillard RN social history reviewed E&M reviewed Joe Dillard RN smoking history, tot al pack/year 2 Emma Wilcox smoking, year quit 2000 Emma Rodarte social history reviewed E&M reviewed Joe Dillard RN drug use no Karla Lomas passive cigarette sm alejandro exposure no Karla Lomas smoking status former smoker Joe Grimaldo social history reviewed E&M reviewed Joe Dillard RN quit smoking, stage quit Chris liao MD social history reviewed E&M reviewed Chris Crews MD social history reviewed E&M reviewed Joe Dillard RN social history reviewed E&M reviewed Joe Dillard RN social history reviewed E&M reviewed Giovanni Hassan MD social history reviewed E&M reviewed Joe Dillard RN social history reviewed E&M reviewed Joe Dillard RN quit smoking, stage quit Joe cordero RN social history E&M Marital Statu s: Single L agueda alone Joe Dillard RN caffeine use, averag e drinks per day yes Joe Dillard RN alcohol use, average drinks per day 0 /d Joe Dillard RN smoking status Quit Joe Dillard RN social history reviewed E&M reviewed Joe Dillard RN FUNCTIONAL STATUS Date Observation Value Provider HRA, CV Assess/Plan, Angina (inactive) Management Plan continue current therapy Gayathri Alvarado HRA, CV Assess/Plan, Angina (inactive) Management Plan continue current therapy Gayathri Alvarado HRA, CV Assess/Plan, Angina (inactive) Management Plan continue current therapy Gayathrijosé miguel Alvarado HRA, CV Assess/Plan, Angina (inactive) Management Plan continue current therapy Gayathrijosé miguel Alvarado HRA, CV Assess/Plan, Angina (inactive) Management Plan continue current therapy Tony Emiliano HRA, CV Assess/Plan, Angina (inactive) Management Plan continue current therapy Tony Emiliano HRA, CV Assess/Plan, Angina (inactive) Management Plan antianginal therapy Giovanni Hassan MD HRA, CV Assess/Plan, Angina (inactive) Management Plan continue current therapy Giovanni Hassan MD HRA, CV Assess/Plan, Angina (inactive) Management Plan continue current therapy Giovanni Hassan MD HRA, CV Assess/Plan, Angina (inactive) Management Plan continue current therapy Yoana Griggs MD HRA, CV Assess/Plan, Angina (inactive) Management Plan continue current therapy Giovanni Hassan MD HRA, CV Assess/Plan, Angina (inactive) Management Plan continue current therapy Giovanni Hassan MD HRA, CV Assess/Plan, Angina (inactive) Management Plan schedule PCI Giovanni Hassan MD MENTAL STATUS Date Observation Value Provider energy level yes Flavia G Jeffry ips energy level yes Flavia G Jeffry ips energy level no Flavia G Jeffry ips energy level no Waleska Garzon on assessment of judgme nt and insight E&M Alert and oriented to time, place and person. Mood and affect are normal. Joelle Craven assessment of judgme nt and insight E&M Alert and oriented to time, place and person. Mood and affect are normal. Joe Dillard RN assessment of judgme nt and insight E&M Alert and oriented to time, place and person. Mood and affect are normal. Joe Dillard RN assessment of judgme nt and insight E&M Alert and oriented to time, place and person. Mood and affect are normal. Joe Dillard RN assessment of judgme nt and insight E&M Alert and oriented to time, place and person. Mood and affect are normal. Joe Dillard RN energy level yes Bertha Umaña energy level yes Bertha Umaña energy level yes Bertha Umaña energy level yes Bertha Chasidy energy level yes Bertha Chasidy energy level yes Bertha Chasidy energy level yes Bertha Chasidy energy level yes Bertha Chasidy energy level yes Bertha Umaña energy level yes Bertha Umaña energy level yes Bertha Umaña energy level yes Fred Antoine energy level yes Fred Antoine energy level yes Fred Antoine energy level yes Fred Antoine energy level yes Fred Antoine energy level yes Fred Antoine energy level yes Fred Antoine energy level yes Fred Antoine assessment of judgme nt and insight E&M Alert and oriented to time, place and person. Mood and affect are normal. Chris Crews MD energy level yes Fred Antoine energy level yes Fred Antoine energy level yes Fred Antoine energy level yes Fred Antoine energy level yes Fred Antoine energy level yes Fred Antoine energy level yes Fred Antoine energy level yes Fred Antoine energy level no Fred Antoine energy level no Fred Antoine energy level yes Fred Antoine energy level no Fred Antoine energy level no Zaynab Nectar energy level yes Fred Antoine energy level yes Fred Antoine energy level yes Fred Antoine energy level no Fred Antoine assessment of judgme nt and insight E&M Alert and oriented to time, place and person. F lat Affect Joe Dillard RN assessment of judgme nt and insight E&M Alert and oriented to time, place and person. F lat Affect Joe Dillard RN assessment of judgme nt and insight E&M Alert and oriented to time, place and person. F lat Affect Giovanni Hassan MD assessment of judgme nt and insight E&M Alert and oriented to time, place and person. F lat Affect Joe Dillard RN assessment of judgme nt and insight E&M Alert and oriented to time, place and person. F lat Affect Joe Dillard RN assessment of judgme nt and insight E&M Alert and oriented to time, place and person. 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 Family Member Condition Mother Family History of Ot her Medical Problems Father Family History of Di abetes: Mother Family History of Hy pertension: Mother Family History of Di abetes: Mother Family History of Co ronary Artery Disease: INSURANCE PROVIDERS Payer name Policy type / Coverage type [place] [employer] party ID [employer] [facility] Medicaid [id number] 800 ADVANCE DIRECTIVES Name Date DISCUSSED - NO DECISION MADE TREATMENT PLAN Date Name Performer [id number],C, H er updated medication list for this problem includes: Metformin 500 Mg Tablet (Metformin) ..... Twice a day Gayathri Alvarado [id number],S, W eight loss advised Gayathri Alvarado [id number],C, H er updated medication list for this problem includes: Lipitor 40 Mg Tablet (Atorvastatin) ..... 1 tablet once a day Gayathri Alvarado [id number],C, B P today: 120/80 P rior BP: 134/80 (10/11/2021) Labs Reviewed: C reat: 0.59 (01/04/2019) C hol: 172 (12/06/2016) HDL: 38 (12/06/2016) T (12/06/2016) H er updated medication list for this problem includes: Coreg 3.125 Mg Tablet (Carvedilol) ..... 1 tablet twice a day Sotalol 80 Mg Tablet (Sotalol) ..... 1 tablet twice a day Lasix 40 Mg Tablet (Furosemide) ..... 1 tablet by mouth once a day Gayathri Alvarado [id number],C,P t complains of SOB with minimal exertion and persistent cough. Worsens at night when she lies flat. On exam lungs are clear. She reports chest Xray was normal. Will obtain PFTs I recommend pulmonary consult. Her symptoms may be due to HFpEF however she is allergic to Jardiance. Gayathriantoni Robersonphoenix [id number],C,P t complains of SOB with minimal exertion and persistent cough. Worsens at night when she lies flat. On exam lungs are clear. Her symptoms may be due to HFpEF however she is allergic to Jardiance. I again advised her to participate in the ENDEAVOR clinical trial. H er updated medication list for this problem includes: Coreg 3.125 Mg Tablet (Carvedilol) ..... 1 tablet twice a day Sotalol 80 Mg Tablet (Sotalol) ..... 1 tablet twice a day Lasix 40 Mg Tablet (Furosemide) ..... 1 tablet by mouth once a day [facility] [id number],S, W eight loss advised [facility] [id number],C, H er updated medication list for this problem includes: Metformin 500 Mg Tablet (Metformin) ..... Twice a day [facility] [id number],C, H er updated medication list for this problem includes: Lipitor 40 Mg Tablet (Atorvastatin) ..... 1 tablet once a day [facility] [id number],C, B P today: 134/80 P rior BP: 136/84 (08/09/2021) Labs Reviewed: C reat: 0.59 (01/04/2019) C hol: 172 (12/06/2016) HDL: 38 (12/06/2016) T (12/06/2016) H er updated medication list for this problem includes: Coreg 3.125 Mg Tablet (Carvedilol) ..... 1 tablet twice a day Sotalol 80 Mg Tablet (Sotalol) ..... 1 tablet twice a day Lasix 40 Mg Tablet (Furosemide) ..... 1 tablet by mouth once a day [facility] [id number],C, Echo showed normal EF with enlarged left atrium. CT of the chest was unremarkable. Based on sysmptoms, she has CHF class II due to HFpEF. She would like to particiapte in the ENDEAVOR clinical trial H er updated medication list for this problem includes: Coreg 3.125 Mg Tablet (Carvedilol) ..... 1 tablet twice a day Sotalol 80 Mg Tablet (Sotalol) ..... 1 tablet twice a day Lasix 40 Mg Tablet (Furosemide) ..... 1 tablet by mouth once a day Gayathri [facility] [id number],S, W eight loss advised [facility] [id number],C, H er updated medication list for this problem includes: Lipitor 40 Mg Tablet (Atorvastatin) ..... 1 tablet once a day [facility] [id number],C, B P today: 136/84 P rior BP: 110/70 (11/30/2020) Labs Reviewed: C reat: 0.59 (01/04/2019) C hol: 172 (12/06/2016) HDL: 38 (12/06/2016) T (12/06/2016) H er updated medication list for this problem includes: Coreg 3.125 Mg Tablet (Carvedilol) ..... 1 tablet twice a day Sotalol 80 Mg Tablet (Sotalol) ..... 1 tablet twice a day Lasix 40 Mg Tablet (Furosemide) ..... 1 tablet by mouth once a day Gayathri [facility] [id number],C, H er updated medication list for this problem includes: Coreg 3.125 Mg Tablet (Carvedilol) ..... 1 tablet twice a day Sotalol 80 Mg Tablet (Sotalol) ..... 1 tablet twice a day Gayathri [facility] [id number],C,C omplaining of SOB with minimal exertion, no chest pain. Pacemaker at PERI. AV paced. Will obtain echo, proBNP and CT of the chest w/o contrast. Will schedule generator replacement. H er updated medication list for this problem includes: Coreg 3.125 Mg Tablet (Carvedilol) ..... 1 tablet twice a day Sotalol 80 Mg Tablet (Sotalol) ..... 1 tablet twice a day Lasix 40 Mg Tablet (Furosemide) ..... 1 tablet by mouth once a day [facility] [id number],C,Weight loss a dvised [facility] [id number],C, H er updated medication list for this problem includes: Metformin Hcl 500 Mg Oral Tablet (Metformin hcl) ..... Twice daily [facility] [id number],S, Gayathri [facility] [id number],C,O n statin. H er updated medication list for this problem includes: Lipitor 40 Mg Oral Tablet (Atorvastatin calcium) ..... One tab. daily [facility] [id number],B, B P today: 110/70 P rior BP: 138/70 (05/18/2020) Labs Reviewed: C reat: 0.59 (01/04/2019) C hol: 172 (12/06/2016) HDL: 38 (12/06/2016) T (12/06/2016) H er updated medication list for this problem includes: Coreg 3.125 Mg Oral Tablet (Carvedilol) ..... One tab. twice daily. Sotalol Hcl 80 Mg Oral Tablet (Sotalol hcl) ..... One tab. twice daily. Lasix 40 Mg Oral Tablet (Furosemide) ..... 1 tab po daily [facility] [id number],S, H er updated medication list for this problem includes: Proair Hfa Aerosol Solution (Albuterol sulfate aers) ..... 2 puffs four times daily as needed [facility] [id number],S,Pacemaker ashley ck pending [facility] [id number],S, N o palpitations. H er updated medication list for this problem includes: Coreg 3.125 Mg Oral Tablet (Carvedilol) ..... One tab. twice daily. Sotalol Hcl 80 Mg Oral Tablet (Sotalol hcl) ..... One tab. twice daily. Gayathri Alvarado [id number],W,P t complains of constat headaches for 2 weeks, associated with pleuritic chest pain without exertion. She had a recent ER visit for this, CT of the head was negative there. BP is well controlled at 110/70, pacemaker check from Saturday is pending. Will obtain an echo to assess for possible cardioversion, CT of the chest, and EKG. I recommend she see a neurologist regarding her headaches. H er updated medication list for this problem includes: Coreg 3.125 Mg Oral Tablet (Carvedilol) ..... One tab. twice daily. Sotalol Hcl 80 Mg Oral Tablet (Sotalol hcl) ..... One tab. twice daily. Gayathri Alvarado [id number],N,P t complains of constat headaches for 2 weeks, associated with pleuritic chest pain without exertion. She had a recent ER visit for this, CT of the head was negative there. Will obtain an echo to assess for possible cardioversion, CT of the chest, and EKG. I recommend she see a neurologist regarding her headaches. Gayathri Alvarado Cardiology: H er updated medication list for this problem includes: Metformin 500 Mg Tablet (Metformin) ..... Twice a day Gayathri Alvarado Cardiology: W eight loss advised Gayathri Alvarado Cardiology: H er updated medication list for this problem includes: Lipitor 40 Mg Tablet (Atorvastatin) ..... 1 tablet once a day Gayathri Alvarado Cardiology: B P today: 120/80 P rior BP: 134/80 (10/11/2021) Labs Reviewed: C reat: 0.59 (01/04/2019) C hol: 172 (12/06/2016) HDL: 38 (12/06/2016) T (12/06/2016) Her updated medication list for this problem includes: Coreg 3.125 Mg Tablet (Carvedilol) ..... 1 tablet twice a day Sotalol 80 Mg Tablet (Sotalol) ..... 1 tablet twice a day Lasix 40 Mg Tablet (Furosemide) ..... 1 tablet by mouth once a day Gayathri Alvarado Cardiology:Pt compla ins of SOB with minimal exertion and persistent cough. Worsens at night when she lies flat. On exam lungs are clear. She reports chest Xray was normal. Will obtain PFTs I recommend pulmonary consult. Her symptoms may be due to HFpEF however she is allergic to Jardiance. Gayathri Jenny Cardiology:Pt compla ins of SOB with minimal exertion and persistent cough. Worsens at night when she lies flat. On exam lungs are clear. Her symptoms may be due to HFpEF however she is allergic to Jardiance. I again advised her to participate in the ENDEAVOR clinical trial. H er updated medication list for this problem includes: Coreg 3.125 Mg Tablet (Carvedilol) ..... 1 tablet twice a day Sotalol 80 Mg Tablet (Sotalol) ..... 1 tablet twice a day Lasix 40 Mg Tablet (Furosemide) ..... 1 tablet by mouth once a day Gayathri Alvarado Cardiology: W eight loss advised Gayathri Alvarado Cardiology: H er updated medication list for this problem includes: Metformin 500 Mg Tablet (Metformin) ..... Twice a day Gayathri Alvarado Cardiology: H er updated medication list for this problem includes: Lipitor 40 Mg Tablet (Atorvastatin) ..... 1 tablet once a day Gayathri Alvarado Cardiology: B P today: 134/80 P rior BP: 136/84 (08/09/2021) Labs Reviewed: C reat: 0.59 (01/04/2019) C hol: 172 (12/06/2016) HDL: 38 (12/06/2016) T (12/06/2016) Her updated medication list for this problem includes: Coreg 3.125 Mg Tablet (Carvedilol) ..... 1 tablet twice a day Sotalol 80 Mg Tablet (Sotalol) ..... 1 tablet twice a day Lasix 40 Mg Tablet (Furosemide) ..... 1 tablet by mouth once a day Gayathri Alvarado Cardiology: Echo virgilio wed normal EF with enlarged left atrium. CT of the chest was unremarkable. Based on sysmptoms, she has CHF class II due to HFpEF. She would like to particiapte in the ENDEAVOR clinical trial H er updated medication list for this problem includes: Coreg 3.125 Mg Tablet (Carvedilol) ..... 1 tablet twice a day Sotalol 80 Mg Tablet (Sotalol) ..... 1 tablet twice a day Lasix 40 Mg Tablet (Furosemide) ..... 1 tablet by mouth once a day Gayathri Alvarado Cardiology: W eight loss advised Gayathri Alvarado Cardiology: H er updated medication list for this problem includes: Lipitor 40 Mg Tablet (Atorvastatin) ..... 1 tablet once a day Gayathri Alvarado Cardiology: B P today: 136/84 P rior BP: 110/70 (11/30/2020) Labs Reviewed: C reat: 0.59 (01/04/2019) C hol: 172 (12/06/2016) HDL: 38 (12/06/2016) T (12/06/2016) Her updated medication list for this problem includes: Coreg 3.125 Mg Tablet (Carvedilol) ..... 1 tablet twice a day Sotalol 80 Mg Tablet (Sotalol) ..... 1 tablet twice a day Lasix 40 Mg Tablet (Furosemide) ..... 1 tablet by mouth once a day Gayathri Alvarado Cardiology: H er updated medication list for this problem includes: Coreg 3.125 Mg Tablet (Carvedilol) ..... 1 tablet twice a day Sotalol 80 Mg Tablet (Sotalol) ..... 1 tablet twice a day Gayathri Alvarado Cardiology:Complaini ng of SOB with minimal exertion, no chest pain. Pacemaker at PERI. AV paced. Will obtain echo, proBNP and CT of the chest w/o contrast. Will schedule generator replacement. H er updated medication list for this problem includes: Coreg 3.125 Mg Tablet (Carvedilol) ..... 1 tablet twice a day Sotalol 80 Mg Tablet (Sotalol) ..... 1 tablet twice a day Lasix 40 Mg Tablet (Furosemide) ..... 1 tablet by mouth once a day Gayathri Alvarado [facility]:Weight loss advised B gianna Alvarado [facility]: H er updated medication list for this problem includes: Metformin Hcl 500 Mg Oral Tablet (Metformin hcl) ..... Twice daily Gayathri Alvarado [facility] Gayathri jeff [facility]:On statin . H er updated medication list for this problem includes: Lipitor 40 Mg Oral Tablet (Atorvastatin calcium) ..... One tab. daily Gayathri Alvarado [facility]: B P today: 110/70 P rior BP: 138/70 (05/18/2020) Labs Reviewed: C reat: 0.59 (01/04/2019) C hol: 172 (12/06/2016) HDL: 38 (12/06/2016) T (12/06/2016) Her updated medication list for this problem includes: Coreg 3.125 Mg Oral Tablet (Carvedilol) ..... One tab. twice daily. Sotalol Hcl 80 Mg Oral Tablet (Sotalol hcl) ..... One tab. twice daily. Lasix 40 Mg Oral Tablet (Furosemide) ..... 1 tab po daily Gayathri Alvarado [facility]: H er updated medication list for this problem includes: Proair Hfa Aerosol Solution (Albuterol sulfate aers) ..... 2 puffs four times daily as needed Gayathri Alvarado [facility]:Pacemaker check pendi ng Gayathri Alvarado [facility]: N o palpitations. H er updated medication list for this problem includes: Coreg 3.125 Mg Oral Tablet (Carvedilol) ..... One tab. twice daily. Sotalol Hcl 80 Mg Oral Tablet (Sotalol hcl) ..... One tab. twice daily. Gayathri Alvarado [facility]:Pt compla ins of constat headaches for 2 weeks, associated with pleuritic chest pain without exertion. She had a recent ER visit for this, CT of the head was negative there. BP is well controlled at 110/70, pacemaker check from Saturday is pending. Will obtain an echo to assess for possible cardioversion, CT of the chest, and EKG. I recommend she see a neurologist regarding her headaches. H er updated medication list for this problem includes: Coreg 3.125 Mg Oral Tablet (Carvedilol) ..... One tab. twice daily. Sotalol Hcl 80 Mg Oral Tablet (Sotalol hcl) ..... One tab. twice daily. Gayathri Robersonkrishna [facility]:Pt compla ins of constat headaches for 2 weeks, associated with pleuritic chest pain without exertion. She had a recent ER visit for this, CT of the head was negative there. Will obtain an echo to assess for possible cardioversion, CT of the chest, and EKG. I recommend she see a neurologist regarding her headaches. [facility] Follow up :Her updated medication list for this problem includes: Metformin Hcl 500 Mg Oral Tablet (Metformin hcl) ..... Twice daily Tony Em[facility] Follow up :Her updated medication list for this problem includes: Lipitor 40 Mg Oral Tablet (Atorvastatin calcium) ..... One tab. daily Tony [facility] Follow up :BP today: 138/70 P rior BP: 118/70 (10/27/2019) Her updated medication list for this problem includes: Coreg 3.125 Mg Oral Tablet (Carvedilol) ..... One tab. twice daily. Sotalol Hcl 80 Mg Oral Tablet (Sotalol hcl) ..... One tab. twice daily. Lasix 40 Mg Oral Tablet (Furosemide) ..... 1 tab po daily Tony [facility] Follow up :No palpitations. Her updated medication list for this problem includes: Coreg 3.125 Mg Oral Tablet (Carvedilol) ..... One tab. twice daily. Sotalol Hcl 80 Mg Oral Tablet (Sotalol hcl) ..... One tab. twice daily. Xarelto 20 Mg Oral Tablet (Rivaroxaban) .... One tab. daily with evening meal Tony [facility] Follow up :She is a candidate for D & C and biopsies and we will obtain a f/u echo. She has had multiple cardiac catheterizations showing no significant coronary artery disease, most recently in 2017. [facility]:Complains of back pain and we will provide her with the contact info for Dr. Quiroz and Dr. Lowe. [facility]:Her [facility] ed medication list for this problem includes: Basaglar Kwikpen 100 Unit/ml Subcutaneous Solution Pen-injector (Insulin glargine) ..... Inject 25 units twice a day Metformin Hcl 500 Mg Oral Tablet (Metformin hcl) ..... Twice daily [facility]:Her upd ed medication list for this problem includes: Lipitor 40 Mg Oral Tablet (Atorvastatin calcium) ..... One tab. daily [facility]:BP today: 118/70 P rior BP: 133/83 (05/27/2019) Her updated medication list for this problem includes: Coreg 3.125 Mg Oral Tablet (Carvedilol) ..... One tab. twice daily. Sotalol Hcl 80 Mg Oral Tablet (Sotalol hcl) ..... One tab. twice daily. Lasix 40 Mg Oral Tablet (Furosemide) ..... 1 tab po daily [facility] Tony [facility] Card[facility]:No palpit ations or SOB. Her updated medication list for this problem includes: Coreg 3.125 Mg Oral Tablet (Carvedilol) ..... One tab. twice daily. Sotalol Hcl 80 Mg Oral Tablet (Sotalol hcl) ..... One tab. twice daily. Xarelto 20 Mg Oral Tablet (Rivaroxaban) .... One tab. daily with evening meal [facility]:Complains of a stinging sensation at the pacemaker site and we will have the device checked. [facility]:She was n ot able to complete ECP but she is not having chest pain at this time. [facility]:She denie s palpitations. Her updated medication list for this problem includes: Coreg 3.125 Mg Oral Tablet (Carvedilol) ..... One tab. twice daily. Sotalol Hcl 80 Mg Oral Tablet (Sotalol hcl) ..... One tab. twice daily. Xarelto 20 Mg Oral Tablet (Rivaroxaban) .... One tab. daily with evening meal [facility]:Her [facility] ed medication list for this problem includes: Basaglar Kwikpen 100 Unit/ml Subcutaneous Solution Pen-injector (Insulin glargine) ..... Inject 25 units twice a day Lisinopril 20 Mg Oral Tablet (Lisinopril) ..... One tab. daily Metformin Hcl 500 Mg Oral Tablet (Metformin hcl) ..... Twice daily [facility]:Her updat ed medication list for this problem includes: Lipitor 40 Mg Oral Tablet (Atorvastatin calcium) ..... One tab. daily [facility]:BP today: 114/69 P rior BP: 122/80 (02/02/2019) Her updated medication list for this problem includes: Coreg 3.125 Mg Oral Tablet (Carvedilol) ..... One tab. twice daily. Sotalol Hcl 80 Mg Oral Tablet (Sotalol hcl) ..... One tab. twice daily. Lisinopril 20 Mg Oral Tablet (Lisinopril) ..... One tab. daily Lasix 40 Mg Oral Tablet (Furosemide) ..... 1 tab po daily [facility]:This richar ent has angina (defined as chest pain, chest discomfort, or pain in arms, neck, jaw, shoulder, or back, and may include symptoms of shortness of breath, fatigue, dizziness, nausea, or diaphoresis) of [place] Cardiovascular Society Class III (defined as symptoms with everyday living activities, i.e. moderate limitation) or [place] Cardiovascular Society Class IV (defined as inability to perform any activity without angina or angina at rest, i.e. severe limitation). T his patient?s angina is disabling and in my opinion is not readily amenable to surgical intervention by PTCA or cardiac bypass because the patient's coronary anatomy is not readily amenable to such procedures. Giovanni Hassan MD Cardiology follow up :The following medications were removed from the medication list: Lantus 100 Unit/ml Subcutaneous Solution (Insulin glargine) ..... 15 units once daily Her updated medication list for this problem includes: Basaglar Kwikpen 100 Unit/ml Subcutaneous Solution Pen-injector (Insulin glargine) ..... Inject 25 units twice a day Lisinopril 20 Mg Oral Tablet (Lisinopril) ..... One tab. daily Metformin Hcl 500 Mg Oral Tablet (Metformin hcl) ..... Twice daily [facility] follow up :Her updated medication list for this problem includes: Lipitor 40 Mg Oral Tablet (Atorvastatin calcium) ..... One tab. daily [facility] follow up :BP today: 122/80 P rior BP: 120/62 (12/23/2017) Her updated medication list for this problem includes: Coreg 3.125 Mg Oral Tablet (Carvedilol) ..... One tab. twice daily. Sotalol Hcl 80 Mg Oral Tablet (Sotalol hcl) ..... One tab. twice daily. Lisinopril 20 Mg Oral Tablet (Lisinopril) ..... One tab. daily Lasix 40 Mg Oral Tablet (Furosemide) ..... 1 tab po daily [facility] follow up :She denies palpitations. Her updated medication list for this problem includes: Coreg 3.125 Mg Oral Tablet (Carvedilol) ..... One tab. twice daily. Sotalol Hcl 80 Mg Oral Tablet (Sotalol hcl) ..... One tab. twice daily. Xarelto 20 Mg Oral Tablet (Rivaroxaban) .... One tab. daily with evening meal [facility] follow up :Pt had a recent ER visit for chest pain. NE was ruled out. She had a normal cardiac cath 3 times, most recently in 2017. We will obtain a f/u echo. Ischemia workup is not recommended at this time. If she has recurrent pain, we will reconsider. [facility]:Her [facility] ed medication list for this problem includes: Lipitor 40 Mg Oral Tablet (Atorvastatin calcium) ..... One tab. daily Tony [facility] Cardiology:Her [facility] ed medication list for this problem includes: Coreg 3.125 Mg Oral Tablet (Carvedilol) ..... One tab. twice daily. Sotalol Hcl 80 Mg Oral Tablet (Sotalol hcl) ..... One tab. twice daily. Xarelto 20 Mg Oral Tablet (Rivaroxaban) .... One tab. daily with evening meal Tony [facility] Cardiology:BP today: 120/62 P rior BP: 140/80 (08/30/2017) Her updated medication list for this problem includes: Coreg 3.125 Mg Oral Tablet (Carvedilol) ..... One tab. twice daily. Sotalol Hcl 80 Mg Oral Tablet (Sotalol hcl) ..... One tab. twice daily. Lisinopril 20 Mg Oral Tablet (Lisinopril) ..... One tab. daily Lasix 40 Mg Oral Tablet (Furosemide) ..... 1 tab po daily Tony [facility] Cardiology:Recommend ed pt consider bariatric surgery or other weight loss program. 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 Labs Reviewed: H gBA1c: 8.5 (07/23/2017) Creat: 0.78 (07/23/2017) Her updated medication list for this problem includes: Lantus 100 Unit/ml Subcutaneous Solution (Insulin glargine) ..... 15 units once daily Lisinopril 20 Mg Oral Tablet (Lisinopril) ..... One tab. daily Metformin Hcl 500 Mg Oral Tablet (Metformin hcl) ..... Twice daily Tony [facility] Card[facility]:Venous duplex was neg ative. [facility]:Recent ca rdiac cath revealed normal coronary arteries and EF of 70%. [facility]:Will need to come off Xarelto as she is planning on having biopsy with colposcopy. Will need to resume Xarelto 2-3 days after the procedure. She should also receive antibiotic prophylaxis prior to the procedure. Yoana Griggs MD Cardiology: P t complains of SOB. She has some leg swelling. She will take additional Lasix on prn basis. Will obtain proBNP, BMP and venous duplex. proBNP 154 pg/mL Creatinine, Urine 33.6 mg/dL Not Estab. Albumin, Urine <3.0 ug/mL Not Estab. Alb/Creat Ratio <8.9 mg/g creat 0.0-30.0 Yoana Griggs MD Cardiology Yoana Griggs MD Cardiology Yoana Griggs MD Cardiology:Planning on colopscopy. She is on Xarelto. Issues is regarding coming off of it. L ast echo 10/2016 EF 60%, LVH mild, MR TR mild. S tress test 11/07/16 LVEF 36%, no ischemia. & #13;Currently asymptomatic from perspective on angina, syncope, pre-syncope. Gets intermittant mild SOB and leg edema. At present, she would be an acceptable candidate for planned procedure. OK to hold Xarelto 3 days prior to procedure and resume after. SBE prophylaxis recommended due to valve and pacemaker since pt. reports biopsy is planned. Yoana Griggs MD Cardiology:Followed by PCP. Demetrio Griggs MD Cardiology:BP today: 126/80 P rior BP: 130/80 (12/26/2016) Her updated medication list for this problem includes: Coreg 3.125 Mg Oral Tablet (Carvedilol) ..... One tab. twice daily. Sotalol Hcl 80 Mg Oral Tablet (Sotalol hcl) ..... One tab. twice daily. Lisinopril 20 Mg Oral Tablet (Lisinopril) ..... One tab. daily Lasix 40 Mg Oral Tablet (Furosemide) ..... 1 tab po daily [facility]:Her [facility] ed medication list for this problem includes: Lipitor 40 Mg Oral Tablet (Atorvastatin calcium) ..... One tab. daily [facility]:Her [facility] ed medication list for this problem includes: Coreg 3.125 Mg Oral Tablet (Carvedilol) ..... One tab. twice daily. Sotalol Hcl 80 Mg Oral Tablet (Sotalol hcl) ..... One tab. twice daily. Xarelto 20 Mg Oral Tablet (Rivaroxaban) .... One tab. daily with evening meal [facility] Card[facility]:No chest pain. Her updated medication list for this problem includes: Coreg 3.125 Mg Oral Tablet (Carvedilol) ..... One tab. twice daily. Sotalol Hcl 80 Mg Oral Tablet (Sotalol hcl) ..... One tab. twice daily. Lisinopril 20 Mg Oral Tablet (Lisinopril) ..... One tab. daily [facility]:Orders: B ASIC METABOLIC PANEL W/EGFR (21828) H EMOGLOBIN A1c (496) U RINALYSIS, RANDOM, MICROALB/CREATININE (6517) Her updated medication list for this problem includes: Lantus 100 Unit/ml Subcutaneous Solution (Insulin glargine) ..... 15 units once daily Lisinopril 20 Mg Oral Tablet (Lisinopril) ..... One tab. daily Metformin Hcl 500 Mg Oral Tablet (Metformin hcl) ..... Twice daily [facility]:Pt compla ins of SOB. She has some leg swelling. She will take additional Lasix on prn basis. Will obtain proBNP, BMP and venous duplex. [facility]:Pt compla ins of SOB. She has some leg swelling. She will take additional Lasix on prn basis. Will obtain proBNP, BMP. [facility]:Weight loss advised. [facility]:BP today: 130/80 P rior BP: 160/80 (12/21/2016) Her updated medication list for this problem includes: Coreg 3.125 Mg Tabs (Carvedilol) ..... One tab. twice daily. aware that patient is taking sotalol 80mg bid Sotalol Hcl 80 Mg Tabs (Sotalol hcl) ..... One tab. twice daily. aware that patient is taking coreg 3.125mg Lisinopril 20 Mg Tabs (Lisinopril) ..... One tab. daily Lasix 40 Mg Tabs (Furosemide) ..... 1 tab po daily [facility]:The pt rebecca d a recent admission due to an episode of Afib associated with CP. Cath did not show severe CAD, and EF 70%. Her updated medication list for this problem includes: Coreg 3.125 Mg Tabs (Carvedilol) ..... One tab. twice daily. aware that patient is taking sotalol 80mg bid Sotalol Hcl 80 Mg Tabs (Sotalol hcl) ..... One tab. twice daily. aware that patient is taking coreg 3.125mg Lisinopril 20 Mg Tabs (Lisinopril) ..... One tab. daily [facility]:Continues on Xarelto 20mg daily. [facility]:Orders: S leep Study (CPT-92781) [facility]:The pt rebecca d a recent admission due to an episode of Afib associated with CP. Cath did not show severe CAD, and EF 70%. [facility]:The pt fernandez d a recent admission due to an episode of Afib associated with CP. Cath did not show severe CAD, and EF 70%. She's currently on Coreg and Sotalol. WIll obtain a sleep study. Will turn on AF suppression. Her updated medication list for this problem includes: Coreg 3.125 Mg Tabs (Carvedilol) ..... One tab. twice daily. aware that patient is taking sotalol 80mg bid Sotalol Hcl 80 Mg Tabs (Sotalol hcl) ..... One tab. twice daily. aware that patient is taking coreg 3.125mg Tony Emiliano Cardiology:BP today: 129/83 P rior BP: 121/80 (04/01/2015) Her updated medication list for this problem includes: Sotalol Hcl 80 Mg Tabs (Sotalol hcl) ..... One tab. twice daily. Lisinopril 10 Mg Tabs (Lisinopril) ..... One tab. daily Lasix 40 Mg Tabs (Furosemide) ..... 1 tab po daily Giovanni Hassan MD Cardiology:Pt had a recent admission to [facility] due to chest discomfort. NE was ruled out however myoview scan showed reduced EF of 36% without perfusion defect. Cardiac cath in 2013 revealed mild disease in the left main coronary artery. Will schedule cardiac cath. Giovanni Hassan MD Cardiology:On Sotalol 80mg BID a nd Xarelto. Giovanni Hassan MD Cardiology:On Sotalo l 80mg BID and Xarelto. Seen by Dr. Haddad. Giovanni Hassan MD Cardiology:Pt had a recent admission to [facility] due to chest discomfort. NE was ruled out however myoview scan showed reduced EF of 36% without perfusion defect. Cardiac cath in 2013 revealed mild disease in the left main coronary artery. Will schedule cardiac cath. Her updated medication list for this problem includes: Sotalol Hcl 80 Mg Tabs (Sotalol hcl) ..... One tab. twice daily. Lisinopril 10 Mg Tabs (Lisinopril) ..... One tab. daily Lasix 40 Mg Tabs (Furosemide) ..... 1 tab po daily Giovanni Hassan MD Cardiology:Pt had a recent admission to [facility] due to chest discomfort. NE was ruled out however myoview scan showed reduced EF of 36% without perfusion defect. Cardiac cath in 2013 revealed mild disease in the left main coronary artery. Will schedule cardiac cath. The following medications were removed from the medication list: Aspirin 81 Mg Tabs (Aspirin) ..... One tab. daily Ranexa 500 Mg Tb12 (Ranolazine) ..... One tab. twice daily for chronic angina Her updated medication list for this problem includes: Sotalol Hcl 80 Mg Tabs (Sotalol hcl) ..... One tab. twice daily Lisinopril 10 Mg Tabs (Lisinopril) ..... One tab. daily Giovanni Hassan MD Electrophysiology Follow up Tom Haddad MD Electrophysiology Follow up Tom Haddad MD Electrophysiology Fo llow up :EKG today shows sinus rhythm. H er updated medication list for this problem includes: Coreg 3.125 Mg Tabs (Carvedilol) ..... One tab. twice daily Sotalol Hcl 80 Mg Tabs (Sotalol hcl) ..... One tab. twice daily Elba Haddad MD EP faxed 04/05/15 160 4:Dr. Haddad does not think that [facility] at present time is equipped to do atrial fibrillation ablation at the level that would be safe for the patient and serve her best interests. Other possible locations including [facility] or [facility] vs other locations such as [place], [place] for Afib ablation. H er updated medication list for this problem includes: Aspirin 81 Mg Tabs (Aspirin) ..... One tab. daily Coumadin 5 Mg Tabs (Warfarin sodium) ..... One tab daily Elba Haddad MD EP:CHOL: 169 (2012) LDL: 108 (07/16/2012) HDL: 48 (07/16/2012) T (07/16/2012) Her updated medication list for this problem includes: Lipitor 40 Mg Tabs (Atorvastatin calcium) ..... One tab. daily Elba Haddad MD EP Elba lewis MD EP:BP today: 145/87 P rior BP: 110/63 (02/16/2015) The following medications were removed from the medication list: Aspirin 325 Mg Tabs (Aspirin) ..... One tab. daily Her updated medication list for this problem includes: Lisinopril 10 Mg Tabs (Lisinopril) ..... One tab. daily at night Lasix 40 Mg Tabs (Furosemide) ..... Once daily Cardizem Cd 240 Mg [id number] (Diltiazem hcl coated beads) ..... One tablet each night Elba Haddad MD EP: O rders: S NOMED-CT: [id number] Current Medications Documented (SCT-[id number]) S chedule Followup (*) 9 3115 HIGH Complex (CPT-57016) F VC - 84568 (08167) F RC - 73960 (85844) D LCO - 01592 (81336) P ROTHROMBIN TIME WITH INR (8847) Elba Haddad MD Cardiology:CHOL: 169 (07/16/2012) LDL: 108 (07/16/2012) HDL: 48 (07/16/2012) T (07/16/2012) Her updated medication list for this problem includes: Lipitor 40 Mg Tabs (Atorvastatin calcium) ..... One tab. daily Giovanni Hassan MD Cardiology:BP today: 110/63 P rior BP: 126/72 (10/20/2014) Her updated medication list for this problem includes: Lasix 40 Mg Tabs (Furosemide) ..... Once daily Cardizem Cd 240 Mg [id number] (Diltiazem hcl coated beads) ..... One tablet each night Aspirin 325 Mg Tabs (Aspirin) ..... One tab. daily Giovanni Hassan MD Cardiology:The pt fernandez d a recent admission due to palpitations and chest discomfort. Pacemaker interrogation revealed that she had an episode lasting about 3 hours in December 2014. We will obtain EP consultation. Giovanni Hassan MD Cardiology:The pt fernandez d a recent admission due to palpitations and chest discomfort. Pacemaker interrogation revealed that she had an episode lasting about 3 hours in December 2014. We will obtain EP consultation. Giovanni Hassan MD Cardiology:The pt fernandez d a recent admission due to palpitations and chest discomfort. Giovanni Hassan MD fu:Increase lipitor to 40mg ruchi y Giovanni Hassan MD fu:Continue Ranexa, ECP not appr jasmyn by insurance Giovanni Hassan MD fu:LIVIER negative Giovanni Hassan MD EP hos follow up: T he following medications were removed from the medication list: Metoprolol Tartrate 50 Mg Tabs (Metoprolol tartrate) ..... 1 twice daily Her updated medication list for this problem includes: Cardizem Cd 240 Mg [id number] (Diltiazem hcl coated beads) ..... One tablet each night Aspirin 325 Mg Tabs (Aspirin) ..... One tab. daily Magnesium 400 Mg Caps (Magnesium oxide) ..... 1 twice daily Elba Haddad MD EP hos follow up: T he following medications were removed from the medication list: Metoprolol Tartrate 50 Mg Tabs (Metoprolol tartrate) ..... 1 twice daily Amiodarone Hcl 200 Mg Tabs (Amiodarone hcl) ..... 2 tabs. daily Coumadin 5 Mg Tabs (Warfarin sodium) ..... One tablet daily except on tues and fri take 1 1/2 tab Her updated medication list for this problem includes: Cardizem Cd 240 Mg [id number] (Diltiazem hcl coated beads) ..... One tablet each night Aspirin 325 Mg Tabs (Aspirin) ..... One tab. daily Elba Haddad MD EP hos follow up: T he following medications were removed from the medication list: Metoprolol Tartrate 50 Mg Tabs (Metoprolol tartrate) ..... 1 twice daily Amiodarone Hcl 200 Mg Tabs (Amiodarone hcl) ..... 2 tabs. daily Coumadin 5 Mg Tabs (Warfarin sodium) ..... One tablet daily except on tues and fri take 1 1/2 tab Her updated medication list for this problem includes: Cardizem Cd 240 Mg [id number] (Diltiazem hcl coated beads) ..... One tablet each night Aspirin 325 Mg Tabs (Aspirin) ..... One tab. daily Orders: Sivakumar BLACK (CPT-02850) S chedule Followup (*) Elba Haddad MD EP hos follow up: T he following medications were removed from the medication list: Metoprolol Tartrate 50 Mg Tabs (Metoprolol tartrate) ..... 1 twice daily Amiodarone Hcl 200 Mg Tabs (Amiodarone hcl) ..... 2 tabs. daily Coumadin 5 Mg Tabs (Warfarin sodium) ..... One tablet daily except on tues and fri take 1 1/2 tab Her updated medication list for this problem includes: Aspirin 325 Mg Tabs (Aspirin) ..... One tab. daily Elba Haddad MD follow up Chris Crews MD follow up Chris Crews MD follow up: O rders: S pirometry (CPT-41934) C ardiopulmonary Stress Test (CPT-50361) C omplete Echo (CPT-63228) X -Ray, Chest, PA & Lateral (CPT-54932) E KG (CPT-64804) Chris Crews MD follow up: H er updated medication list for this problem includes: Simvastatin 10 Mg Tabs (Simvastatin) ..... One tab. at bedtime Orders: S pirometry (CPT-40317) C ardiopulmonary Stress Test (CPT-55644) C omplete Echo (CPT-68832) X -Ray, Chest, PA & Lateral (CPT-16297) E KG (CPT-24138) Chris Crews MD follow up: H er updated medication list for this problem includes: Proair Hfa Aers (Albuterol sulfate aers) ..... 2 puffs four times daily Advair Diskus 500-50 Mcg/dose Misc (Fluticasone-salmeterol) ..... 1 puff twice daily Orders: S pirometry (CPT-44242) C ardiopulmonary Stress Test (CPT-85777) C omplete Echo (CPT-05183) X -Ray, Chest, PA & Lateral (CPT-16575) E KG (CPT-31400) Chris Crews MD follow up: O rders: C omplete Echo (CPT-91161) X -Ray, Chest, PA & Lateral (CPT-37572) E KG (CPT-64484) Chris Crews MD follow up: O rders: S pirometry (CPT-72497) C ardiopulmonary Stress Test (CPT-50752) E KG (CPT-93401) Chris Crews MD test results: B P today: 104/62 Prior BP: 117/75 (06/03/2009) N uclear Stress Findings: 1. Normal Robin protocol exercise tolerance test. 2 . Abnormal left ventricular size and function with a calculated ejection fraction of 41%( please correlate with echo EF) . 3 . Myocardial scintigraphy is normal without evidence for previous myocardial infarction or reversible ischemia. (06/10/2009) H gb: 12.1 (04/14/2009) HCT: 37.6 (04/14/2009) RBC: 4.43 (04/14/2009) WBC: 9.6 (04/14/2009) B UN: 12 (04/14/2009) Creat: 0.84 (04/14/2009) Glucose: 107 (04/14/2009) N a+: 140 (04/14/2009) K+: 3.7 (04/14/2009) Cl: 101 (04/14/2009) TSH: 1.480 (04/14/2009) Echocardiogram: Normal left ventricular systolic function. Normal left ventricular size. Mild concentric left ventricular hypertrophy. Left ventricular ejection fraction is estimated at 60%. There is trace physiologic mitral valve regurgitation. There is non-specific thickening of the mitral valve leaflets. There is trace physiologic tricuspid valve regurgitation. There is non-specific thickening of the tricuspid valve. IVC is normal in size. Unable to adequately assess the R VSP. (06/03/2009) Giovanni Hassan MD test results: B P today: 104/62 Prior BP: 117/75 (06/03/2009) N uclear Stress Findings: 1. Normal Robin protocol exercise tolerance test. 2 . Abnormal left ventricular size and function with a calculated ejection fraction of 41%( please correlate with echo EF) . 3 . Myocardial scintigraphy is normal without evidence for previous myocardial infarction or reversible ischemia. (06/10/2009) E chocardiogram: Normal left ventricular systolic function. Normal left ventricular size. Mild concentric left ventricular hypertrophy. Left ventricular ejection fraction is estimated at 60%. There is trace physiologic mitral valve regurgitation. There is non-specific thickening of the mitral valve leaflets. There is trace physiologic tricuspid valve regurgitation. There is non-specific thickening of the tricuspid valve. IVC is normal in size. Unable to adequately assess the R VSP. GC (06/03/2009) H gb: 12.1 (04/14/2009) HCT: 37.6 (04/14/2009) RBC: 4.43 (04/14/2009) WBC: 9.6 (04/14/2009) B UN: 12 (04/14/2009) Creat: 0.84 (04/14/2009) Glucose: 107 (04/14/2009) N a+: 140 (04/14/2009) K+: 3.7 (04/14/2009) Cl: 101 (04/14/2009) SGOT (AST): 20 (04/14/2009) SGPT (ALT): 13 (04/14/2009) TSH: 1.480 (04/14/2009) H er updated medication list for this problem includes: Hydrochlorothiazide 12.5 Mg Caps (Hydrochlorothiazide) ..... One tab. daily Giovanni Hassan MD chest pain: B P today: 117/75 Prior BP: / () H gb: 12.1 (04/14/2009) HCT: 37.6 (04/14/2009) RBC: 4.43 (04/14/2009) WBC: 9.6 (04/14/2009) B UN: 12 (04/14/2009) Creat: 0.84 (04/14/2009) Glucose: 107 (04/14/2009) N a+: 140 (04/14/2009) K+: 3.7 (04/14/2009) Cl: 101 (04/14/2009) TSH: 1.480 (04/14/2009) O rders: C omplete Echo (CPT-50638) S tress Test - Nuclear (74785) Giovanni Hassan MD chest pain: H er updated medication list for this problem includes: Hydrochlorothiazide 12.5 Mg Caps (Hydrochlorothiazide) ..... One tab. daily BP today: 117/75 Labs Reviewed: C reat: 0.84 (04/14/2009) Giovanni Hassan MD Date Name [facility] - [address] [facility] - [address] FVC - 90651 COVID19 nasal swab ( LC) CBC (INCLUDES DIFF/P LT) PROTHROMBIN TIME WIT H INR COMPREHENSIVE METABO LIC PANEL W/EGFR URINALYSIS, COMPLETE W/REFLEX TO CULTURE PARTIAL THROMBOPLAST IN TIME, ACTIVATED COMPREHENSIVE METABO LIC PANEL, W/EGFR Test PARTIAL THROMBOPLAST IN TIME, ACTIVATED URINALYSIS, COMPLETE W/REFLEX TO CULTURE PROTHROMBIN TIME WIT H INR CBC (INCLUDES DIFF/P LT) PROBNP, N TERMINAL RPM (remote patient monitoring) CT Chest without con trast Complete Echo EKG CT Chest without con trast Complete Echo Complete Echo Covid Antibody IgA ( LC) Covid Antibody IgM ( LC) Covid Antibody Igg Pacemaker Check ECP Commercial Complete Echo Venous Doppler Bilat eral LE - Reflux URINALYSIS, RANDOM, MICROALB/CREATININE HEMOGLOBIN A1c PROBNP, N TERMINAL BASIC METABOLIC PANE L W/EGFR Sleep Study URINALYSIS, RANDOM, MICROALB/CREATININE PROTHROMBIN TIME WIT H INR CBC (INCLUDES DIFF/P LT) LIPID PANEL BASIC METABOLIC PANE L W/EGFR Cardiac Cath - Left - GC DLCO - 59837 FRC - 07127 FVC - 52752 HEMOGLOBIN A1c Complete Echo PROTHROMBIN TIME WIT H INR DLCO - 77536 FRC - 92616 FVC - 06509 STR - Adenosine ECP - Medicare Venous Doppler Bilat eral LE - Standing Arterial Duplex Bi-L ower EX ABLATION w/ Anesthes ia Full PFT Pacemaker Dual Chamb er - CNE X-Ray, Chest, PA & L ateral Complete Echo Cardiopulmonary Stre ss Test Spirometry ECP - Medicare Cardiac Cath - Left - GC Venous Doppler Bilat eral LE Arterial Duplex Lowe r Extremity Bilateral Stress Test - Nuclea r Complete Echo HISTORY OF PROCEDURES Procedure Date Procedure Name Provider Procedure Notes S tatus EKG Giovanni Hassan MD completed EKG Giovanni Hassan MD completed EKG Giovanni Hassan MD completed EKG Giovanni Hassan MD completed EKG Giovanni Hassan MD completed Pacemaker Interrogation, Remote (Tech) Giovanni Hassan MD INTERROGATION REMOTE </90 D TECHNICAL SALES ADVISOR REVIEW completed Pacemaker Interrogation, Remote (Prof) Giovanni Hassan MD INTERROGATION EVAL REMOTE </90 D 1/2/SECURITY POLICE LEAD P completed Pacemaker Interrogation, Remote (Tech) Giovanni Hassan MD INTERROGATION REMOTE </90 D TECHNICAL SALES ADVISOR REVIEW completed Pacemaker Interrogation, Remote (Prof) Giovanni Hassan MD INTERROGATION EVAL REMOTE </90 D 1/2/SECURITY POLICE LEAD P completed Pacemaker Interrogation, Remote (Tech) Giovanni Hassan MD INTERROGATION REMOTE </90 D TECHNICAL SALES ADVISOR REVIEW completed Pacemaker Interrogation, Remote (Prof) Giovanni Hassan MD INTERROGATION EVAL REMOTE </90 D 1/2/SECURITY POLICE LEAD P completed Pacemaker Interrogation, Remote (Tech) Giovanni Hassan MD INTERROGATION REMOTE </90 D TECHNICAL SALES ADVISOR REVIEW completed Pacemaker Interrogation, Remote (Prof) Giovanni Hassan MD INTERROGATION EVAL REMOTE </90 D 1/2/SECURITY POLICE LEAD P completed Pacemaker Interrogation, Remote (Tech) Giovanni Hassan MD INTERROGATION REMOTE </90 D TECHNICAL SALES ADVISOR REVIEW completed Pacemaker Interrogation, Remote (Prof) Giovanni Hassan MD INTERROGATION EVAL REMOTE </90 D 1/2/SECURITY POLICE LEAD P completed Pacemaker Interrogation, Remote (Tech) Giovanni Hassan MD INTERROGATION REMOTE </90 D TECHNICAL SALES ADVISOR REVIEW completed Pacemaker Interrogation, Remote (Prof) Giovanni Hassan MD INTERROGATION EVAL REMOTE </90 D 1/2/SECURITY POLICE LEAD P completed SNOMED-CT: 05665648 Physical Exam, Performed: Pulse Exam of Foot Giovanni Hassan MD completed SNOMED-CT: 302149591727355 Current Medications Documented Giovanni Hassan MD completed SNOMED-CT: 79754909 Physical Exam, Performed: Pulse Exam of Foot Giovanni Hassan MD completed EKG Elba lewis MD completed SNOMED-CT: 753466269842292 Current Medications Documented Elba Haddad MD completed EKG Giovanni Hassan MD completed SNOMED-CT: 381159015234334 Current Medications Documented Giovanni Hassan MD completed Pacemaker Interrogation, Remote (Tech) Giovanni Hassan MD INTERROGATION REMOTE </90 D TECHNICAL SALES ADVISOR REVIEW completed Pacemaker Interrogation, Remote (Prof) Giovanni Hassan MD INTERROGATION EVAL REMOTE </90 D 1/2/SECURITY POLICE LEAD P completed FVC - 18966 Elba lewis MD completed FRC - 02898 Elba lewis MD completed DLCO - 75421 Elba lewis MD completed SNOMED-CT: 072794147 Smoking Cessation Counseling Elba Haddad MD completed SNOMED-CT: 17994418 Physical Exam, Performed: Pulse Exam of Foot Elba Haddad MD completed SNOMED-CT: 490551014124203 Current Medications Documented Elba Haddad MD completed Schedule Followup Elba steve MD 1 month with SK completed SNOMED-CT: 53105731 Physical Exam, Performed: Pulse Exam of Foot Elba Haddad MD completed SNOMED-CT: 229112983 Smoking Cessation Counseling Elba Haddad MD completed EKG Elba lewis MD completed SNOMED-CT: 766445185300223 Current Medications Documented Elba Haddad MD completed SNOMED-CT: 572411261 Smoking Cessation Counseling Giovanni Hassan MD completed EKG Giovanni Hassan MD completed SNOMED-CT: 025000528689342 Current Medications Documented Giovanni Hassan MD completed Pacemaker Interrogation, Remote (Tech) Giovanni Hassan MD INTERROGATION REMOTE </90 D TECHNICAL SALES ADVISOR REVIEW completed Pacemaker Interrogation, Remote (Prof) Giovanni Hassan MD INTERROGATION EVAL REMOTE </90 D 1/2/SECURITY POLICE LEAD P completed Pacemaker Interrogation, Remote (Tech) Giovanni Hassan MD INTERROGATION REMOTE </90 D TECHNICAL SALES ADVISOR REVIEW completed Pacemaker Interrogation, Remote (Prof) Giovanni Hassan MD INTERROGATION EVAL REMOTE </90 D 1/2/SECURITY POLICE LEAD P completed Pacemaker Interrogation, Remote (Tech) Giovanni Hassan MD INTERROGATION REMOTE </90 D TECHNICAL SALES ADVISOR REVIEW completed Pacemaker Interrogation, Remote (Prof) Giovanni Hassan MD INTERROGATION EVAL REMOTE </90 D 1/2/SECURITY POLICE LEAD P completed Pacemaker Interrogation, Remote (Tech) Giovanni Hassan MD INTERROGATION REMOTE </90 D TECHNICAL SALES ADVISOR REVIEW completed Pacemaker Interrogation, Remote (Prof) Giovanni Hassan MD INTERROGATION EVAL REMOTE </90 D 1/2/SECURITY POLICE LEAD P completed Schedule Followup Elba steve MD with Dr. Hassan completed EKG Elba lewis MD completed EKG Elba lewis MD completed Pacemaker Interrogation, Remote (Tech) Giovanni Hassan MD INTERROGATION REMOTE </90 D TECHNICAL SALES ADVISOR REVIEW completed Pacemaker Interrogation, Remote (Prof) Giovanni Hassan MD INTERROGATION EVAL REMOTE </90 D 1/2/SECURITY POLICE LEAD P completed DLCO - 61225 Giovanni Hassan MD complete d FRC - 87786 Giovanni Hassan MD completed FVC - 45293 Giovanni Hassan MD completed Pacemaker Interrogation, Remote (Tech) Giovanni Hassan MD INTERROGATION REMOTE </90 D TECHNICAL SALES ADVISOR REVIEW completed Pacemaker Interrogation, Remote (Prof) Giovanni Hassan MD INTERROGATION EVAL REMOTE </90 D 1/2/SECURITY POLICE LEAD P completed EKG Giovanni Hassan MD completed Lipid Strip Giovanni Hassan MD completed EKG Giovanni Hassan MD completed EKG Giovanni Hassan MD completed EKG Chris Crews MD complete d EKG Giovanni Hassan MD completed EKG Giovanni Hassan MD completed
--- OUTSIDE RECORDS SUMMARY | 2024-04-23 21:51 | XMS_ITS | Referral Summary ---
Author Organization [facility] [employer] Address [address] [place] [address] Care Team Providers Care Snout Puller Name Role Phone Matt Barnes MD Primary Care Provider + [phone] Source Comments [facility] [employer],non-owned Affiliates and Associated Physician Practices is amultiple site organization consisting of ambulatory clinics and hospital sitesin [place], [place], [place] and [place]. This disclosure is being madepursuant to the Care Everywhere program and may not contain all information available regarding this patient. Last updated 17.[facility] [employer] Allergies Active Allergy Reactions Criticality Noted Date [...] Comments Blood Pressure 137/74 04/28/2019 3:09 AM MACHINE MARKER Pulse 82 04/28/2019 3:09 AM MACHINE MARKER Temperature 36.4 C (97.6 F) 04/28/2019 3:09 AM MACHINE MARKER Respiratory Rate 18 04/28/2019 3:09 AM MACHINE MARKER Oxygen Saturation 99% 04/28/2019 3:09 AM MACHINE MARKER Inhaled Oxygen Concentration - - Weight 123.8 kg (273 lb) 04/13/2019 10:57 AM MACHINE MARKER Height 157.5 cm (5' 2 ) 04/13/2019 10:57 AM MACHINE MARKER Body Mass Index 49.93 04/13/2019 10:57 AM MACHINE MARKER Plan of Treatment Not on file Procedures Procedure Name Priority Date/Time Associated Diagnosis Comments BASIC METABOLIC PANEL (CALCIUM TOTAL) STAT 04/28/2019 12:48 AM MACHINE MARKER from Last 3 Months or Most Recently Relevant to Health Maintenance Results * (ABNORMAL) BASIC METABOLIC PANEL (CALCIUM TOTAL) (04/28/2019 12:48 AM MACHINE MARKER) Glucose 397(H) 70 - 105 mg/dL 04/28/2019 1:12 AM [facility] Sodium 137 136 - 145 mmol/L 04/28/2019 1:12 AM [facility] Potassium 3.9 3.5 - 5.1 mmol/L 04/28/2019 1:12 AM [facility] Chloride 102 98 - 107 mmol/L 04/28/2019 1:12 AM [facility] CO2 24 23 - 31 mmol/L 04/28/2019 1:12 AM [facility] Calcium 9.4 8.4 - 10.4 mg/dL 04/28/2019 1:12 AM [facility] Anion Gap 11 8 - 16 mmol/L 04/28/2019 1:12 AM [facility] BUN 9 7 - 18.7 mg/dL 04/28/2019 1:12 AM [facility] Creatinine 0.92 0.57 - 1.11 mg/dL 04/28/2019 1:12 AM [facility] eGFR by MDRD >60 >60 mL/min/1.7 3m2 04/28/2019 1:12 AM [facility] eGFR by MDRD >60 >60 mL/min/1.7 3m2 04/28/2019 1:12 AM [facility] Blood BLOOD SPECIMEN / Unknown Venipuncture / Unknown 04/28/2019 12:48 AM MACHINE MARKER 04/28/2019 12:58 AM MACHINE MARKER Del Price PA-C LAB - CHEMISTRY ORD ERABLES [facility] [address] [place], [place] [id number] from Last 3 Months or Most Recently Relevant to Health Maintenance Care Teams Snout Puller Relationship Specialty Start Date End Date Matt Barnes MD PCP - General 09/16/17
--- OUTSIDE RECORDS SUMMARY | 2024-04-23 21:51 | XMS_ITS | Continuity of Care Document ---
Author Organization [facility] Address [address] [place] [address] Phone Care Team Providers Care Golf Starter And Ranger Name Role Phone Perea OD, Aldair Unavailable Unavailable Advance Directives Directive Yes / No Effective Date File Name No Information Encounters Encounter Description Practice Location Reason(s) For Visit Diagnoses Date Provider Providers Copied on Encounter [facility], [address] [place], [place], [id number], [place] tel:[phone] [facility] No Information Dec-1 7-200 3 Perea OD Aldair. [address] , [address], [place], [address], [place]. tel:[phone] Family History Family Member Type Diagnosis Age At Onset No Information Payers Payer name Insurance type Covered republican ID Authoriza tion(s) Medicaid [facility] [id number] Social History Type Description Quantity Date Captured Comments Sex Female Smoking Status No Information Chief Complaint And Reason For Visit No Information Reason For Referral Reason For Referral No Information History Of Present Illness Encounter Date Complaint History Of Prese nt Illness No Information Functional Status Date Functional Assessmen t No Information Instructions Date Instruction Additional Infor mation No Information Assessments Type Assessment Date No Information Patient Care Teams Name Effective Dates (start - stop) Status Members No Information
--- OUTSIDE RECORDS SUMMARY | 2024-04-23 21:51 | XMS_ITS | Data Portability ---
Author Organization [facility]_Unsigned Documents Address [address] [place] [address] Care Team Providers Care Pathology Transcriptionist Name Role Phone PAULO KNOX Primary Care Provider PAULO KNOX Referring Provider VIGNESH WEEKS Workforce Staffing Advisor Unavailable Assessment No assessment recorded. Plan of Treatment Reminders Order Date Submit Date Provider Last Modified By Organization Details Last Modified Time Details Appointments Establi shed Patient 15 2024 09:00A Vignesh Moore MD Not available Not available Not available Lab None recorde d. Referral pulmono logist referra l 2022 023 [email or web address] Alonso Wall MD, [address] [place], [address], 12/13/2022 16:00:07 Procedures pacemak er interro gation (PROC) 2023 024 [facility], [address] [place], [address], 10/01/2023 08:49:56 Surgeries None recorde d. Imaging electro cardiog amy 2023 024 [facility], [address] [place], [address], 10/08/2023 18:00:46 Medication Orders Xarelto 10 mg tablet 2023 024 [id number], [address], [address], [place], [place], [phone], 10/07/2023 09:08:37 sotalol 120 mg tablet 2023 024 [facility] #[id number], [address], [facility] [address], [place], [place], [phone], 10/01/2023 08:49:56 Xarelto 20 mg tablet 2023 024 [facility] #[id number], [address], [facility] [address], [place], [place], [phone], 10/01/2023 08:49:56 Patient TargetsNo targets recorded. Patient Instructions Encounter Date Encounter Id Patient Instructions Last Modified By Organization Details Last Modified Time 11/12/2022 [id number] chest pain: care instructions Not available 11/12/2022 17:26:37 body mass index: care instructions Not available 11/12/2022 17:26:37 learning about healthy weight Not available 11/12/2022 17:26:37 A healthy lifestyle: care instructions Not available 11/12/2022 17:26:37 high blood pressure: care instructions Not available 11/12/2022 17:26:37 learning about high blood pressure Not available 11/12/2022 17:26:37 shortness of breath: care instructions Not available 11/12/2022 17:26:37 {{Ruby Houston* }} scribing for {{Amber Weeks MD*}}, signed by {{Ruby Houston* }} Date: {{DATE 11/12/2022 }} Time: 10:45 I, {{Amber Weeks MD*}}, performed the above service scribed on my behalf and I confirm the accuracy of the documentation written by the scribe. Date: Time: philippe Not available 11/12/2022 11:45:59 03/04/2023 [id number] A healthy lifestyle: care instructions Not available 03/04/2023 11:07:06 learning about healthy weight Not available 03/04/2023 11:07:06 high blood pressure: care instructions Not available 03/13/2023 10:24:09 learning about high blood pressure Not available 03/13/2023 10:24:09 (LIVIER) ankle brachial index* - appt 03/07@845am ELIZABETH Not available 03/07/2023 14:07:28 Return to clinic in 6 weeks. Patient advised to call or return to clinic sooner if needed. Not available 03/13/2023 10:24:08 09/02/2023 [id number] A healthy lifestyle: care instructions Not available 09/03/2023 08:51:11 high blood pressure: care instructions Not available 09/03/2023 08:51:11 learning about high blood pressure Not available 09/03/2023 08:51:11 atrial fibrillation: care instructions Not available 09/03/2023 08:51:11 high cholesterol : care instructions Not available 09/03/2023 08:51:11 {{Jazzy Felipe* }} scribing for {{Amber Weeks MD*}}, signed by {{Jazzy Felipe* }} Date: {{DATE 09/02/2023 }} Time: 9:24am I, {{Amber Weeks MD*}}, performed the above service scribed on my behalf and I confirm the accuracy of the documentation written by the scribe. Date: Time: Not available 09/02/2023 10:24:16 09/30/2023 [id number] body mass index: care instructions Not available 10/01/2023 08:49:56 learning about healthy weight Not available 10/01/2023 08:49:56 atrial fibrillation: care instructions Not available 10/01/2023 08:49:56 high blood pressure: care instructions Not available 10/01/2023 08:49:56 learning about high blood pressure Not available 10/01/2023 08:49:56 high cholesterol : care instructions Not available 10/01/2023 08:49:56 {{Ruby Houston* }} scribing for {{Amber Weeks MD*}}, signed by {{Ruby Houston* }} Date: {{DATE 09/30/2023 }} Time: 11:41 I, {{Amber Weeks MD*}}, performed the above service scribed on my behalf and I confirm the accuracy of the documentation written by the scribe. Date: Time: er Not available 09/30/2023 12:41:21 10/07/2023 [id number] body mass index: care instructions Not available 10/07/2023 09:53:24 learning about healthy weight Not available 10/07/2023 09:53:24 high blood pressure: care instructions Not available 10/07/2023 09:53:16 learning about high blood pressure Not available 10/07/2023 09:53:16 atrial fibrillation: care instructions Not available 10/07/2023 09:53:24 Reason for Referral Second Cutter Referral for D yspnea Referring Physician: Vignesh Weeks, Cardiology, Encounter Date: 11/12/2022 Results Created Date Observation Date Name Description Value Unit Range Abnormal Flag Note LastModifiedBy Organization Detail LastModifiedTime 11/02/1910/31/2022 XR, chest No observ ation record ed. Not Available 10/16 11:28:43 11/02/19 23 10/31/2022 elect harishar diogr am No observ ation record ed. Not Available 10/16 11:29:22 11/06/19 23 11/05/2022 pacem christina rice rogat ion (PROC ) No observ ation record ed. [email or web address] Not Available 11/05 14:29:58 11/10/19 23 11/07/2022 US, echoc ardio gram, trans thora cic, compl ete, w/ color flow No observ ation record ed. [email or web address] [facility] [address] [place], [address], 11/09/2022 12:38:30 03/07/20 23 03/07/2023 (LIVIER) ankle brach ial index * No observ ation record ed. [email or web address] Oral Covarrubias MD [address] [place], [address], 03/07/2023 14:48:22 09/30/19 24 09/30/2023 pacem christina inter rogat ion (PROC ) No observ ation record ed. [email or web address] [facility] [address] [place], [address], 09/30/2023 16:22:58 10/07/19 24 elect rocar diogr am No observ ation record ed. [email or web address] [facility] [address] [place], [address], 10/07/2023 09:15:34 10/07/19 24 elect rocar diogr am No observ ation record ed. [email or web address] Not Available 10/13 09:35:17 Result Notes None recorded. Problems Name Problem SNOMED Code Status Onset Date Resolution Date Notes Provider Name and Address Organization Details Recorded Time Atrial fibrillat ion 62687592 Active 2023 s/p Ablation Jazzy Felipe null, [facility] 4 14:36:50 Gastroeso phageal reflux disease 452127332 Active 2023 Jazzy Felipe null, [facility] 4 10:10:39 Hyperlipi demia 63949420 Active 2023 Jazzy Felipe null, [facility] 4 10:11:01 Coronary atheroscl erosis 551953246 Active 2023 Jazzy Felipe [facility], [facility] 4 10:11:52 Diabetes mellitus 12941038 Active 2022 MERLE Puckett [address] [place], [address] , [facility] 3 10:22:53 Essential hypertens ion 31120892 Active 2022 MERLE Puckett [address] [place], [address] , [facility] 3 10:22:56 Heart failure 25550385 Active 2022 Not Available [facility] 3 05:06:51 Cardiac pacemaker in situ 509198998 Active 2022 [facility] implanted 12/18/2012 w/ gen change 09/2021 Jazzy Felipe [facility], [facility] 4 10:10:18 Notes:Some problems listed i n Document: #[id number] could not be added to this patient's chart. Please review this document and add these problems to the patient's chart manually as needed. Problem Notes None recorded. Procedures Surgical History Date Name Laterality Status Provider Name and Address Organization Details Recorded Time 03/07/20 23 ankle brachial pressure index completed Jazzy Felipe [facility] 04/12/2023 11:14:49 11/08/19 23 Tte w/doppler complete [facility] 11/12/2022 11:39:05 11/08/19 23 Cardiovascular stress test completed Ruby Houston [facility] 11/15/2022 10:06:08 10/04/19 22 replacement of dual chamber pulse generator completed Jazzy Felipe [facility] 10/04/2022 11:42:44 08/19/19 22 Tte w/doppler complete completed Jazzy Felipe [facility] 10/04/2022 11:30:13 12/13/19 17 catheterization of left heart completed Jazzy Felipe [facility] 10/04/2022 11:33:16 04/08/19 16 lung volume test completed [facility] 10/04/2022 11:31:19 11/05/19 14 Cardiac Ablation completed [facility] 10/04/2022 11:37:05 12/19/19 13 Pacemaker completed [facility] 10/04/2022 11:39:06 Carpal Tunnel Surgery completed [facility] 09/24/2022 12:50:00 Umbilical Hernia Repair completed [facility] 09/24/2022 12:50:13 Section completed [facility] 09/24/2022 12:50:40 Imaging Results Imaging Date Name Status LastModified by Organization Details LastModified Time 10/31/2022 XR, chest [place] [id number] Information n ot available 11/01/2022 11:28:43 10/31/2022 electrocardiogram [place] [id number] Inform ation not available 11/01/2022 11:29:22 11/05/2022 pacemaker interrogation (PROC) [email or web address] [id number] Information not available 11/05/2022 14:29:58 11/07/2022 US, echocardiogram, transthoracic, complete, w/ color flow completed [email or web address] [facility] [address] [place], [address], 11/09/2022 12:38:30 03/07/2023 (LIVIER) ankle brachial index* completed [email or web address] Oral Covarrubias MD [address] [place], [address], 03/07/2023 14:48:22 09/30/2023 pacemaker interrogation (PROC) completed [email or web address] [facility] [address] [place], [place], [address], 09/30/2023 16:22:58 10/07/[address] [facility] [address] [place], [address], 10/07/2023 09:15:34 10/07/2023 electrocardiogram completed Informa tion not available 10/14/2023 09:35:17 Procedure Notes None recorded. Medical Equipment None Reported. Allergies Allergen ID Allergen Name Allergen Category Reaction Reaction Severity Criticality Documentation Date Start Date Code Code System Note Provider Name and Address Organization Details Recorded Time 20081024 shrimp allergeni c extract food swelling Not available Not available 09/24/2022 02254 2 [facility] 3 12:38:09 Jardiance medicatio n hives Not available Not available 09/24/2022 12375 59 [facility] 3 12:38:20 20340724 Shellfish (substanc e) food,medi cation Not available Not available Not available 11/02/2022 82140 9006 SNOMED Lakesha Palafoxs [facility] 3 08:26:07 Medications Name Sig Start Date Stop Date Status Note LastModified by Organization Details LastModified Time cyclobenzap rine 10 mg tablet TAKE ONE TABLET BY MOUTH THREE TIMES DAILY FOR MUSCLE SPASMS active Not Available Not Available No t Available methocarbam ol 500 mg tablet TAKE 1 TABLET BY MOUTH THREE TIMES DAILY active Not Available Not Available No t Available promethazin e-DM 6.25 mg-15 mg/5 mL oral syrup TAKE 5ML BY MOUTH EVERY 6 HOURS NEEDED FOR COUGH active Not Available Not Available No t Available gabapentin 600 mg tablet TAKE ONE TABLET BY MOUTH THREE TIMES DAILY FOR NERVE PAIN active Not Available Not Available No t Available cetirizine 10 mg tablet TAKE ONE TABLET BY MOUTH EVERY DAY FOR ALLERGIES . active Not Available Not Available No t Available azithromyci n 250 mg tablet TAKE 2 TABLETS BY MOUTH ON DAY 1, THEN TAKE 1 TABLET DAILY ON DAYS 2 THROUGH 5 active Not Available Not Available No t Available ibuprofen 800 mg tablet 03/04 completed Not Available Not Available Not Available tizanidine 4 mg tablet TAKE ONE TABLET BY MOUTH TWICE DAILY NEEDED FOR pain in right hip 09/24 completed Not Available Not Available Not Available sotalol 80 mg tablet TAKE ONE TABLET BY MOUTH EVERY TWELVE HOURS active Not Available Not Available No t Available meloxicam 15 mg tablet TAKE ONE TABLET BY MOUTH EVERY DAY for arthritis . 09/29 completed Not Available Not Available Not Available sucralfate 1 gram tablet TAKE 1 TABLET BY MOUTH ONCE DAILY active Not Available Not Available No t Available omeprazole 40 mg capsule,del ayed release TAKE ONE CAPSULE BY MOUTH EVERY DAY FOR ACID REFLUX active Not Available Not Available No t Available tramadol 50 mg tablet TAKE 1 TABLET BY MOUTH EVERY 6 HOURS NEEDED FOR PAIN 09/29 completed Not Available Not Available Not Available sotalol 120 mg tablet TAKE 1 TABLET BY MOUTH TWICE DAILY active Not Available Not Available No t Available spironolact one 25 mg tablet TAKE ONE TABLET BY MOUTH ONCE DAILY FOR BLOOD PRESSURE active Not Available Not Available No t Available oxycodone-a cetaminophe n 5 mg-325 mg tablet TAKE 1 TABLET BY MOUTH THREE TIMES DAILY 09/29 completed Not Available Not Available Not Available amoxicillin 875 mg tablet TAKE ONE TABLET BY MOUTH TWICE DAILY FOR INFECTION 09/01 completed Not Available Not Available Not Available famotidine 20 mg tablet TAKE ONE TABLET BY MOUTH TWICE DAILY NEEDED FOR ACID REFLUX active Not Available Not Available No t Available magnesium oxide 400 mg (241.3 mg magnesium) tablet TAKE ONE TABLET BY MOUTH TWICE DAILY FOR SUPPLEMEN T active Not Available Not Available No t Available furosemide 80 mg tablet TAKE 1 TABLET BY MOUTH ONCE DAILY FOR FLUID RETENTION active Not Available Not Available No t Available baclofen 10 mg tablet 03/04 completed Not Available Not Available Not Available hydrocodone 7.5 mg-acetamin ophen 325 mg tablet TAKE 1 TABLET BY MOUTH EVERY 8 HOURS NEEDED FOR PAIN 03/04 completed Not Available Not Available Not Available metformin 1,000 mg tablet TAKE ONE TABLET BY MOUTH TWICE DAILY WITH A MEAL FOR DIABETES active Not Available Not Available No t Available omeprazole 20 mg capsule,del ayed release TAKE ONE CAPSULE BY MOUTH EVERY DAY FOR ACID REFLUX 09/24 completed Not Available Not Available Not Available furosemide 20 mg tablet take 1 tablet by mouth daily 09/01 completed Not Available Not Available Not Available gabapentin 100 mg capsule take 1 tablet by mouth 2-3 times daily 09/01 completed Not Available Not Available Not Available ergocalcife rol (vitamin D2) 1,250 mcg (50,000 unit) capsule take 1 tablet by mouth weekly active Not Available Not Available No t Available lisinopril 10 mg-hydrochl orothiazide 12.5 mg tablet TAKE 1 TABLET BY MOUTH ONCE DAILY FOR BLOOD PRESSURE active Not Available Not Available No t Available lovastatin 20 mg tablet take 1 tablet by mout daily 2023 active Not Available Not Available Not Avai lable methylpredn isolone 4 mg tablets in a dose pack FOLLOW INSTRUCTI ONS INCLUDED WITH DOSE YOLANDE active Not Available Not Available No t Available cefdinir 300 mg capsule 03/04 completed Not Available Not Available Not Available naproxen 500 mg tablet TAKE 1 TABLET BY MOUTH TWICE DAILY WITH MEALS 03/04 completed Not Available Not Available Not Available spironolact one 50 mg tablet Take 1 tablet every day by oral route for 90 days. 2023 active Not Available Not Available Not Avai lable amoxicillin 875 mg-potassiu m clavulanate 125 mg tablet TAKE ONE TABLET BY MOUTH EVERY 12 HOURS FOR 10 DAYS. active Not Available Not Available No t Available Ventolin HFA 90 mcg/actuati on aerosol inhaler INHALE TWO PUFFS BY MOUTH EVERY 4 HOURS NEEDED SHORTNESS OF BREATH active Not Available Not Available No t Available ezetimibe 10 mg tablet take 1 tablet by mouth daily active Not Available Not Available No t Available cyclobenzap rine 5 mg tablet TAKE 1 TABLET BY MOUTH THREE TIMES DAILY NEEDED 09/01 completed Not Available Not Available Not Available rosuvastati n 20 mg tablet TAKE ONE TABLET BY MOUTH EVERY EVENING FOR CHOLESTER OL 09/01 completed Not Available Not Available Not Available rosuvastati n 40 mg tablet TAKE ONE TABLET BY MOUTH EVERY DAY FOR CHOLESTER OL active Not Available Not Available No t Available nitrofurant oin monohydrate /macrocryst als 100 mg capsule TAKE ONE CAPSULE BY MOUTH TWICE DAILY WITH FOOD FOR SEVEN DAYS FOR INFECTION 09/24 completed Not Available Not Available Not Available Flovent HFA 220 mcg/actuati on aerosol inhaler INHALE 1 PUFF BY MOUTH TWICE DAILY active Not Available Not Available No t Available Lantus Solostar U-100 Insulin 100 unit/mL (3 mL) subcutaneou s pen inject 35 units under the skin twice a day FOR DIABETES active Not Available Not Available No t Available diclofenac 1 % topical gel APPLY 2 GRAMS TO THE AFFECTED AREAS BY TOPICAL ROUTE THREE TIMES DAILY 09/29 completed Not Available Not Available Not Available Easy Touch 31 gauge x 5/16 needle use to inject insulin under the skin TWICE DAILY active Not Available Not Available No t Available Xarelto 10 mg tablet Take 1 tablet every day by oral route. 10/06 completed Not Available Not Available Not Available Xarelto 20 mg tablet Take 1 tablet every day by oral route at bedtime for 90 days. 2023 active Not Available Not Available Not Avai [email or web address] Vitals Date Recorded Body height Body mass index (BMI) Body weight Oxygen saturation Oxygen saturation in Arterial blood by Pulse oximetry Heart rate Systolic blood pressure Diastolic blood pressure Provider Name and Address Organization Details Last Updated DateTime 3 157.48 cm 46.7 kg/m2 789580. 75 g 97 % 97 % 70 /min 120 mm[Hg] 76 mm[Hg] Chaparrita Cameron [facility] 3 11:25:02 Date Recorded Body height Body mass index (BMI) Body weight Heart rate Oxygen saturation Oxygen saturation in Arterial blood by Pulse oximetry Systolic blood pressure Diastolic blood pressure Provider Name and Address Organization Details Last Updated DateTime 3 157.48 cm 47.6 kg/m2 163644. 02 g 67 /min 98 % 98 % 108 mm[Hg] 71 mm[Hg] [facility] 09:[facility]22 Date Recorded Body height Body mass index (BMI) Body weight Heart rate Oxygen saturation Oxygen saturation in Arterial blood by Pulse oximetry Systolic blood pressure Diastolic blood pressure Provider Name and Address Organization Details Last Updated DateTime 4 157.48 cm 48.9 kg/m2 530962. 32 g 71 /min 97 % 97 % 116 mm[Hg] 78 mm[Hg] Tyolr Westbrook [facility] 4 09:37:11 Date Recorded Body height Body mass index (BMI) Body weight Heart rate Oxygen saturation Oxygen saturation in Arterial blood by Pulse oximetry Systolic blood pressure Diastolic blood pressure Provider Name and Address Organization Details Last Updated DateTime 4 157.48 cm 48.3 kg/m2 580345. 39 g 65 /min 97 % 97 % 126 mm[Hg] 79 mm[Hg] Nicolasa Whitley [facility] 4 11:54:18 Date Recorded Body height Body mass index (BMI) Body weight Heart rate Oxygen saturation Oxygen saturation in Arterial blood by Pulse oximetry Systolic blood pressure Diastolic blood pressure Provider Name and Address Organization Details Last Updated DateTime 4 157.48 cm 48.3 kg/m2 482934. 39 g 61 /min 98 % 98 % 105 mm[Hg] 73 mm[Hg] Paramjit toth [facility] 4 09:05:26 Social History Question Answer Notes LastModified by Organizat ion Details LastModified Time Tobacco Smoking Status Former Smoker Caroline Mancera hafsa, [facility] 11/05/2022 11:26:14 Do You Have An Advance Directive? Yes [email or web address] Information not available 10/07/2023 What Is Your Level Of Alcohol Consumption? Occasional Information not available 09/24/2022 Is Blood Transfusion Acceptable In An Emergency? Yes Information not available 10/07/2023 What Is Your Level Of Caffeine Consumption? Moderate Information not available 09/24/2022 When Did You Quit Smoking? 6-10yearssince lastcigarette fwingo Information not available 09/30/2023 If Pulse Oximetry Was Done: Is The Patient's Sp02 Less Than 93% On Room Air? No Information not available 09/24/2022 What Was The Date Of Your Most Recent Tobacco Screening? 10/07/2023 Information not available 10/07/2023 Have You Ever Been Counseled For Unhealthy Alcohol Use? No Information not available 09/24/2022 Do You Use Any Illicit Or Recreational Drugs? No Information not available 09/24/2022 Do You Or Have You Ever Used Any Other Forms Of Tobacco Or Nicotine? No Information not available 09/24/2022 Sex: Unknown Functional Status None recorded. Mental Status None recorded. Family History Relationship Description Onset Age of this Age Resolved Age Notes LastModified by Organization Details LastModified Time Father Diabetes mellitus Not available 09/15 12:44:59 Father Hypertensive disorder Not available 09/15 12:46:58 Sister Diabetes mellitus Not available 09/15 12:44:59 Sister Heart disease Not available 09/15 12:45:44 Sister Family history of malignant neoplasm Not available 09/15 12:46:22 Sister Hypertensive disorder Not available 09/15 12:46:58 Sister Kidney disease Not available 09/15 12:47:16 Brother Diabetes mellitus Not available 09/15 12:44:59 Brother Heart disease Not available 09/15 12:45:44 Brother Family history of malignant neoplasm Not available 09/15 12:46:22 Brother Hypertensive disorder Not available 09/15 12:46:58 Brother Kidney disease Not available 09/15 12:47:16 Paternal Grandmother Diabetes mellitus Not available 09/15 12:44:59 Paternal Grandmother Hypertensive disorder Not available 09/15 12:46:58 Mother Heart disease Not available 09/15 12:45:43 Mother Hypertensive disorder Not available 09/15 12:46:58 Maternal Grandfather Hypertensive disorder Not available 09/15 12:46:58 Medical History No medical history recorded. Gynecological HistoryNo gynecological history recorded. Obstetrics History GPAL:G 0 P 0 0 0 0 Past Encounters Encounter ID Performer Location Encounter Start Date Encounter Closed Date Diagnosis/Indication Diagnosis SNOMED-CT Code Diagnosis ICD10 Code Diagnosis Note [id number] Vignesh Weeks MD [facility] [address] 09/24/2022 12:02:24 09/24/2022 13:57:43 Body mass index 40+ - severely obese 709871673 Z68.42 Chest pain 44938768 R07. 9 We will request records from [facility]. Dyspnea 018497648 R06.02 with edema, will check echo. Cardiac pa cemchristina in situ 863354375 Z95.0 [facility], replaced 09/2019, no device check. PPM interrogat ion with next visit. Intermitte nt palpitations 907517691 R00.2 History of atrial fibrillati on with ablation several years ago we will check her [facility] device when she returns to the clinic in 6 weeks to look for atrial fibrillati on. Essential hypertension 94392789 I10 No change in current care. [id number] [facility] [address] [place] [facility] [address] 11/05/2022 11:09:17 11/05/2022 12:37:35 Body mass index 40+ - severely obese 832028249 Z68.42 Chest pain 72782924 R07. 9 Will schedule Ruby Dyspnea on exertion 6084 5006 R06.09 ECHO scheduled for Saturday@ [facility] . Cardiac pa geovanna in situ 454834797 Z95.0 [facility], interrogat ed 11/05/22 Proper device functions. High ventricula r rate detected 4 times, atrial output adjusted to 3.5 V at 1.0 MS PW. Auto capture off. Estimated battery life remaining 7.0 to 10.7 years. Edema of l ower extremity 255607254 R60.0 Continue current medication s. [id number] Vignesh Weeks MD [facility] [address] [place] [address] 11/12/2022 10:59:08 11/12/2022 11:35:13 Body mass index 40+ - severely obese 994391716 Z68.42 Dyspnea 735056778 R06.02 11/07/22 ECHO: EF 60-65%, moderate tricuspid regurgitat ion. Will send referral to Dr. Wall for pulmonolog y. Chest pain 30708419 R07. 9 Chest pain has resolved. 11/07/22 Lexiscan: negative for ischemia, no significan t ST-T changes of ischemia on stress EKG. Essential hypertension 73444424 I10 Controlled . Continue current medication s. [id number] Vignesh Weeks MD [facility] [address] [place] [address] 03/04/2023 09:16:40 03/04/2023 10:02:58 Body mass index 40+ - severely obese 450591947 Z68.42 Intermitte nt claudication 59266483 I73.9 Will schedule ABIs Cardiac pa cemaker in situ [id number] Z95.0 [facility], interrogat ed 11/05/22 Proper device functions. High ventricula r rate detected 4 times, atrial output adjusted to 3.5 V at 1.0 MS PW. Auto capture off. Estimated battery life remaining 7.0 to 10.7 years. Coronary arteriosclerosis [id number] I25.10 Stable. Continue current medication s. Diabetes mellitus 356370 09 E11.9 Continue current medication s. Essential hypertension [id number] I10 Well controlled . Continue current medication s. [id number] Vignesh Weeks MD [facility] [address] [place] [address] 09/02/2023 09:06:43 09/02/2023 10:16:46 Body mass index 40+ - severely obese [id number] Z68.42 Atrial fibrillation 4943 6004 I48.91 Reports episode last week. Regular today. Continue current medication s. Cardiac pa cemaker in situ [id number] Z95.0 SJM to be checked next visit - still has not received home monitoring device, will discuss with rep at next visit. Diabetes mellitus 862989 E11.9 Continue current medication s. Essential hypertension 78404735 I10 Well controlled . Continue current medication s. Return to clinic in 4 weeks or sooner if needed. Hyperlipidemia 07560553 E78.5 Continue statin. [id number] Vignesh Weeks MD [facility] [address] [place] [address] 09/30/2023 10:44:28 09/30/2023 12:34:52 Body mass index 40+ - severely obese [id number] Z68.42 Essential hypertension 60852046 I10 Well controlled . Continue current medication s. RTC in 1 week, pt is advised to call or return to clinic sooner if needed. Atrial fibrillation 4943 6004 I48.91 Increase sotalol to 120 mg BID and increase Xarelto 59 20 mg QHS. Return to clinic in 1 week for office visit and EKG.She reports she was previously seen by a cardiologi st in [place], [place] named Dr. Giovanni Hassan. Will request records. Cardiac pa geovanna in situ [id number] Z95.0 SJM device check today 09/30/23 - multiple episodes of afib and rare NSVT. Normal device function, no changes made. Hyperlipidemia 79435355 E78.5 Continue statin. [id number] Vignesh Weeks MD [facility] [place] [address] [place] [address] 10/07/2023 09:00:43 10/07/2023 09:43:17 Body mass index 40+ - severely obese [id number] Z68.42 Atrial fibrillation 4943 6004 I48.91 Continue current medication s. RTC in 3 months or sooner if needed Essential hypertension 18376058 I10 Well controlled . Continue current medication s. Health Concerns Section Related Observation LastModified by Organization Detai ls LastModified Time None Recorded Concern Status LastModified by Organization Details LastModified Time None Recorded Advance Directives Directive Y: Payers Encounter Date Sequence Insurance Name Policy Number Policy [place] Covered Member ID [place] Member ID Guarantor Name 11/12/2022 1 [place] GIOVANNA EVANGELINA Julienne R Lawrence [id number] Julienne Young 03/04/2023 1 [place]OV[place]NA EVANGELINA Julienne R Young [id number] Julienne Young 09/02/2023 1 [place] GIOVANNA EVANGELINA Julienne R Young [id number] Julienne Young 09/30/2023 1 [place] GIOVANNA EVANGELINA Julienne R Young [id number] Julienne Young 10/07/2023 1 [place] GIOVANNA EVANGELINA Julienne R Young [id number] Julienne Young Notes Date Note Type Note Provider Name and Address Organization Details Recorded Time 11/12/2022 text/html Ms. Bravo is a pleasant 52-year-old female with a past medical history atrial fibrillation status post ablation 3 to 4 years ago, a [employer] medical pacemaker initially inserted 12/2012 with a battery change out in 2021, no known coronary disease per her report (documented CAD in PCP note), or CHF (documented chronic diastolic in PCP note- she does not recall), hypertension, diabetes, hyperlipidemia, GERD, with rare tobacco intake, and social use of alcohol. She presents today for follow up and test results. 11/07/22 ECHO: EF 60-65%, moderate tricuspid regurgitation. 11/07/22 Lexiscan: negative for ischemia, no significant ST-T changes of ischemia on stress EKG. She reports dyspnea is requesting a referral to a camera storage clerk. She denies chest pain, edema, palpitations, dizziness, [place] [address] [place], [address], [facility] 11/15/2022 19:24:33 03/04/2023 text/html Ms. Bravo is a pleasant 52-year-old female with a past medical history atrial fibrillation status post ablation 3 to 4 years ago, a [employer] medical pacemaker initially inserted 12/2012 with a battery change out in 2021, no known coronary disease per her report (documented CAD in PCP note), or CHF (documented chronic diastolic in PCP note- she does not recall), hypertension, diabetes, hyperlipidemia, GERD, with rare tobacco intake, and social use of alcohol. 11/07/22 ECHO: EF 60-65%, moderate tricuspid regurgitation. 11/07/22 Lexiscan: negative for ischemia, no significant ST-T changes of ischemia on stress EKG. She presents today for f3 months follow-up. Today she reports feeling pretty good she complains of shortness of breath cough and upper respiratory infection. She reports she has a new inhaler. She complains of lightheadedness claudication bilateral edema and an ER visit for neck pain due to her cervical spine. She also request her [employer] permanent pacemaker bedside machine be changed to report to Dr. eWeks. She denies chest pain, palpitations, syncope, [place] [address] [place], [address], [facility] 03/14/2023 01:39:29 09/02/2023 text/html Ms. Bravo is a pleasant 53-year-old female with a past medical history atrial fibrillation status post ablation 3 to 4 years ago, a [employer] medical pacemaker initially inserted 12/2012 with a battery change out in 09/2021, no known coronary disease per her report (documented CAD in PCP note), or CHF (documented chronic diastolic in PCP note- she does not recall), hypertension, diabetes, hyperlipidemia, GERD, with rare tobacco intake, and social use of alcohol. She presents today for follow-up. She reports an Afib episode lasting 4-5 minutes last week but states she has been compliant with her medications. Today she reports no palpitations. She still has not received her home monitoring device to check her STM ppm. She denies chest pain, SOB, edema, dizziness [place] [address] [place], [address], [facility] 09/10/2023 22:00:37 09/30/2023 text/html Ms. Bravo is a pleasant 53-year-old female with a past medical history atrial fibrillation status post ablation 3 to 4 years ago, a [employer] medical pacemaker initially inserted 12/2012 with a battery change out in 09/2021, no known coronary disease per her report (documented CAD in PCP note), or CHF (documented chronic diastolic in PCP note- she does not recall), hypertension, diabetes, hyperlipidemia, GERD, with rare tobacco intake, and social use of alcohol. She presents today for follow up. She reports chest tightness, dyspnea, and BLE edema. She denies palpitations, dizziness, or syncope. She reports compliance with her medications. She denies any hospitalizations since last office visit. She has a [place] home monitor from [facility] with [place] [address] [place], [address], [facility] 10/09/2023 23:32:52 10/07/2023 text/html Ms. Bravo is a pleasant 53-year-old female with a past medical history atrial fibrillation status post ablation 3 to 4 years ago, a [employer] medical pacemaker initially inserted 12/2012 with a battery change out in 09/2021, no known coronary disease per her report (documented CAD in PCP note), or CHF (documented chronic diastolic in PCP note- she does not recall), hypertension, diabetes, hyperlipidemia, GERD, with rare tobacco intake, and social use of alcohol. She presents today for follow up. She continues to report chest tightness and dyspnea. She also complains of feeling more fatigued since sotalol was increased. She denies palpitations, dizziness, or syncope. She reports compliance with her medications. She denies any hospitalizations since last office [place] [address] [place], [address], [facility] 10/14/2023 01:53:03 OBGyn Episode No OBEpisode recorded.
--- OUTSIDE RECORDS SUMMARY | 2024-04-23 21:51 | XMS_ITS | Clinical Summary ---
Author Organization [facility] Address [address] [place] [id number] Care Team Providers Care Boot Maker Name Role Phone Elizabeth Pollard MD Primary Care Provider [phone] Allergies Active Allergy Reactions Criticality Noted Date Comments Empagliflozin Hives Medium 10/21/2020 Shellfish Anaphylaxis High 10/04/2016 Diffuse swelling and to tongue. Medications alcohol swabs pads, medicatedIndicati ons:Type 2 diabetes mellitus without complication, with long-term current use of insulin ([facility]) ([facility]) Use to swabs daily to clean area 200 each 5 1 Active blood-glucose meter miscIndications:T ype 2 diabetes mellitus without complication, with long-term current use of insulin ([facility]) ([facility]) Test blood glucose twice a day 1 [...] ons:Type 2 diabetes mellitus with peripheral neuropathy ([facility]) Inject 38 Units under the skin 2 [...] complication, with long-term current use of insulin ([facility]) ([facility]) Use two lancet daily to check blood [...] and low-salt diet and followed by the manager telemarketing Bradycardia 09/28/2021 Overview (09/28/2021): Added automatically from request for surgery [id number] Chronic pain of left thumb 01/19/2021 Assessment [...] (04/22/2020): Added automatically from request for surgery [id number] Fibroids 04/22/2020 Overview (04/22/2020): Added automatically from request for surgery [id number] Foot callus 04/06/2020 Assessment & Plan (04/06/2020 8:37 AM FIBRE CEMENT MOULDER): Patient has small callus in the plantar aspect of left foot. It was treated with liquid nitrogen. She will call back in 1 week if it is not resolved. We will make a referral to see a sales engineer engineered products Oligomenorrhea 03/28/2020 Overview (03/28/2020): Patient with 2-3 [...] asymptomatic. Continue current medications. Followed by the manager telemarketing Assessment & Plan (01/19/2021 8:59 AM CDT): Asymptomatic. Continue current medications. Follow up with the manager telemarketing Assessment & Plan (10/19/2020 9:12 AM CDT): Patient is asymptomatic and followed by the manager telemarketing Assessment & Plan (07/19/2020 9:22 AM CDT): Managed by the manager telemarketing Assessment & Plan (04/06/2020 8:08 AM FIBRE CEMENT MOULDER): Managed by the manager telemarketing Atypical chest pain 03/21/2020 Femoroacetabular impingement of left hip 021 Insect stings 03/21/2020 Pain of lower extremity 03/21/2020 Presence of permanent cardiac pacemaker 03/21/19 Sick sinus syndrome ([facility]) 03/21/2020 Assessment & Plan (07/10/2021 8:47 AM CDT): Status post pacemaker placement Assessment & Plan (01/19/2021 9:00 AM CDT): Status post pacemaker placement and followed by the manager telemarketing Supraventricular tachycardia 03/21/2020 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 BMI 45.0-49.9, adult ([facility]) 09/21/2019 Assessment & Plan (07/10/2021 8:46 AM [...] changes. Assessment & Plan (04/06/2020 8:06 AM FIBRE CEMENT MOULDER): BMI Follow-up includes: nutrition counseling. The patient [...] biopsy with ANAHY III -Referred to [facility] Repair Supervisor Onc and now s/p EUA, CKC and [...] of malignancy or hyperplasia. -06/14: Presented to [facility] with heavy bleeding. Hgb 12. 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 Discussed low-salt diet. Discussed [...] maintained on Xarelto and followed by the manager telemarketing Assessment & Plan (07/10/2021 8:45 AM CDT): Continue Xarelto. Rate is controlled. She is in normal sinus rhythm. No side effects with medications. Followed by the manager telemarketing Assessment & Plan (01/19/2021 8:59 AM CDT): Patient is maintained on Xarelto. She is in normal sinus rhythm. No bleeding or bruising Assessment & Plan (10/19/2020 9:11 AM CDT): Rate is controlled and she is in normal sinus rhythm and maintained on Xarelto and followed by the manager telemarketing Assessment & Plan (07/29/2020 10:31 AM CDT): NSR on arrival. Follows with OSH Cardiology. [id number] 3. Resume xarelto in coming day(s) Hold sotalol temporarily, repeat EKG pending (avoid qt proloncation w FQ) Assessment & Plan (07/19/2020 9:20 AM CDT): Continue Xarelto on follow-up with manager telemarketing Assessment & Plan (04/06/2020 8:06 AM FIBRE CEMENT MOULDER): Patient maintained on Xarelto and followed by the manager telemarketing Assessment & Plan (01/06/2020 9:10 AM CDT): Rate is controlled and she is maintained on Xarelto and followed by the manager telemarketing Assessment & Plan (09/28/2019 11:18 AM CDT): Continue Xarelto and she is followed by the manager telemarketing Assessment & Plan (09/21/2019 4:25 PM CDT): [...] week. Assessment & Plan (04/06/2020 8:06 AM FIBRE CEMENT MOULDER): Continue current medications, discussed low carbohydrate diet, [...] . Assessment & Plan (04/06/2020 8:06 AM FIBRE CEMENT MOULDER): Controlled on current medications. Continue low-fat diet. [...] gabapentin Assessment & Plan (04/06/2020 8:06 AM FIBRE CEMENT MOULDER): Secondary to diabetes and controlled on gabapentin Assessment & Plan (09/28/2019 11:19 AM CDT): Continue gabapentin Assessment & Plan (09/21/2019 4:26 PM CDT): Increase gabapentin to 600 mg t.i.d. Pulmonary nodule Assessment & Plan (01/19/2021 9:00 AM CDT): Patient has granuloma Assessment & Plan (10/19/2020 9:11 AM CDT): Granuloma Assessment & Plan (04/06/2020 8:06 AM FIBRE CEMENT MOULDER): CT scan of the lungs showed granuloma [...] t Vaccination (12+ YRS) 07/17/2020,06/24/2020 Tdap 07/25/2014 Surgical History Surgery Date Site/Laterality Comments CARDIAC PACEMAKER PLACEMENT 12/16/2012 - 01/15/2013 SECTION 1990,1996 CARPAL TUNNEL RELEASE Bilateral wrist and elbows HERNIA REPAIR ABLATION OF AFIB FLUTTER 03/18/2017 - 03/17/2018 x2 EMBOLIZATION ORGAN ISCHEMIA OR INFARCTION 07/28/2020 N/A UTERINE FIBROID SURGERY 07/28/2020 Medical History Medical History Date Comments Asthma Diabetes mellitus (HCC) Carpal tunnel syndrome Hypertension A-fib (CMS/HCC) (HCC) Low back pain Neck pain Type 2 diabetes mellitus (HCC) GERD (gastroesophageal reflux disease) Obesity Wears glasses Ambulates with cane Thalassemia SSS (sick sinus syndrome) (CMS/HCC) (HCC) Supraventricular tachycardia (HCC) Family History Medical History Relation Name Comments Arthritis Mother Asthma Mother Heart disease Mother Relation Name Status Comments Brother 1 6 Alive Brother 2 6 Father Mother Sister 1 6 Alive Sister 2 4 Social History Tobacco Use Types Packs/Day Years Used Date Smoking Tobacco: Former Cigarettes 0.1 13 1 993 - 2005 Smokeless Tobacco: Never Tobacco Cessation:Counseling Given: No [...] on file Legal Sex Female 7:11 PM FIBRE CEMENT MOULDER Gender Identity Not on file Sexual Orientation Not on file Obstetrics History Para Term AB IAB SAB Ectopic Multiple Livin g Live Births 5 3 2 1 2 1 3 3 Date Outcome GA Total Labor Labor/2nd/3rd Weight Sex Type Anes PTL Sarah A1 A5 Name Clin AB Term Term 2000 Ectopic Comments CS x 2 - for meconium in G1, unsure why CS in G3 History of PTD x 1 - Last Filed Vital Signs Vital Sign Reading [...] 12/14/2021 10:28 AM CDT Plan of Treatment Health Maintenance Due Date Last Done Comments Hepatitis C Screening 1970 Pneumococcal vaccine <65 (1 of 2 - PCV) 1976 Hepatitis B Screening 1988 Regular Well Visit/Exam 18-64 1988 Zoster Vaccine (1 of 2) 2020 Cervical Cancer Screening 03/21/2021 03/21/2020, 08/2019 Hemoglobin A1C 04/14/2021 10/12/2020, 0404/2020, 06/14/2020, Additional history exists Breast Cancer Screening-Mammogram 06/17/2021 06/17/2020, 09/22/2018, 02/16/2015 Albumin Creatinine Ratio, Urine 10/12/2021 Lipid Panel 10/12/2021 10/12/2020, 12/16, 09/25/2019, Additional history exists Foot Exam 10/19/2021 10/19/2020, 09/28/2019 Dilated Eye Exam 01/11/2022 01/11/2021, 04/2020, 11/04/2019 eGFR 07/10/2022 07/10/2021, 10/12/2020 Depression Screening 12/14/2022 12/14/2021, 11/16/2021, 07/10/2021, Additional history exists Colon Cancer Screening-Colonoscopy 04/22/20232020 Covid-19 Vaccine (2023-2 5 season) 2023 01/19/2021, 07/17/2020, 06/24/2020, Additional history exists Influenza Vaccine (#1) 2023 , 01/19/2021, 01/06/2020, Additional history exists DTaP/Tdap/Td Vaccine (2 - Td or Tdap) 07/25/2024 07/25/2014 Goals Goal Patient Goal Type Associated Problems Recent Progress Patient-Stated? Author CCM Chronic Pain Care Plan Chronic Care Management No Aleshia Villanueva RN Note: Problem: Chronic Pain Goals: 1. Minimize further functional decline 2. Maximize quality of life 3. Control pain Strategies: - Activity/exercise program recommendation - Conservative stepwise pain medicine strategy with multi-disciplinary approach - Recommend healthy lifestyle strategies and compensatory methods as needed Reduce the likelihood of falling Lifestyle No Aleshia Villanueva RN Note: Below are four things you [...] on stairs Contact your local community or [facility] for information on exercise, fall prevention programs, or options for improving home safety. Medical Devices Implanted Type Area Deckhand Device Identifier Shelf Expiration Date Model / Serial / Lot [employer] Assurity Mri [id number] Chamber Is-1 Connector Thk6mm Pacemaker [id number] - [id number] - [id number] Implanted:Qty: 1 on 10/03/2021 by Giovanni Hassan MD at [facility] Pacemaker Left: Chest Wall [employer] [id number] 03/17/2023 [id number] / [id number] / [employer] S620 Embosphere Saline Syringe Compressible Nonaggregate Highly Target - [id number] Implanted:Qty: 1 on 07/28/2020 at [facility] [employer] 03/11/2023 [facility] / / [id number] -5 [employer] S620 Embosphere Saline Syringe Compressible Nonaggregate Highly Target - [id number] Implanted:Qty: 1 on 07/28/2020 at [facility] [employer] 03/11/2023 S620 / / [id number] -5 [employer] S620 Embosphere Saline Syringe Compressible Nonaggregate Highly Target - [id number] Implanted:Qty: 1 on 07/28/2020 at [facility] [employer] 03/11/2023 S620 / / [id number] -5 [facility] [employer] S620 Embosphere Saline Syringe Compressible Nonaggregate Highly Target - [id number] Implanted:Qty: 1 on 07/28/2020 at [facility] 07/15/2022 S620 / / [id number] -5 [facility] [employer] S620 Embosphere Saline Syringe Compressible Nonaggregate Highly Target - [id number] Implanted:Qty: 1 on 07/28/2020 at [facility] 04/25/2023 S620 / / [id number] -5 [facility] [employer] S620 Embosphere Saline Syringe Compressible Nonaggregate Highly Target - [id number] Implanted:Qty: 1 on 07/28/2020 at [facility] 04/25/2023 S620 / / [id number] Explanted Type Area Deckhand Device Identifier Shelf Expiration Date Model / Serial / Lot Pacemaker Explanted:Qty: 1 on 10/03/2021 by Giovanni Hassan MD at [facility] Chest Description:[employer] Procedures Procedure Name Priority [...] REFLEX TO GENOTYPING Routine 03/21/2020 3:53 AM FIBRE CEMENT MOULDER from Last 3 Months or Most Recently Relevant to Health Maintenance Results * eGFR (07/10/2021 9:13 AM CDT) eGFR 109 mL/min/1. 73 m2 ALEISHA SPAIN Comment: Interpretive Data Reference Interval Normal >/= [...] Inclusion of Race in Diagnosing Kidney Disease, JASN 2020). The CKD-EPI equation should not be used for patients with unstable renal function and has not been validated in children and those over 70. Current interpretive data was last reviewed 2021. Blood 07/10/2021 9:13 AM CDT 07/10/2021 9:54 AM CDT Marika Wong MD LAB BLOOD ORDERABLES Final Result ALEISHA [address] [facility] Department [place] [address] * Diabetic Eye Exam (01/11/2021) Narrative Luzmaria Bhagat MA - 01/11/2021 No Diabetic retinopathy us Historical Provider HEALTH MAINTENANCE Final Result * Diabetic Foot Exam (10/19/2020) Historical Provider HEALTH MAINTENANCE Final Result * Albumin Creatinine [...] URINE ORDERABLES Final Result Performing Organization Address [facility] de Phone Number [address] [place] [address] * (ABNORMAL) Hemoglobin A1c (10/12/2020 9:41 AM CDT) [facility] Hgb A1C 7.9(H) 4.0 - 5.6 % ALEISHA Estimated Average Glucose 180 mg/dL ALEISHA Comment: The ADA recommends reporting an estimated Average Glucose (eAG) with all Hemoglobin A1c results using the equation derived from a study of 507 normal and diabetic adults. Minority populations were underrepresented and children were not included. (Diabetes Care 31:3120-8893, 2008). The eAG is not equivalent to a fasting glucose. Blood specimen (specimen) 10/12/2020 9:41 AM CDT 10/12/2020 10:02 AM CDT Elizabeth Pollard MD LAB BLOOD ORDERABLES Final Result Performing Organization Address [facility] Co de Phone Number [address] [place] [address] * (ABNORMAL) Lipid panel (10/12/2020 9:41 AM CDT) [facility] Cholesterol 190 30 - 199 mg/dL ALEISHA [...] Pediatrics 2011;128:S213 2. NCEP Expert Panel. Circulation 2003;110:227 Current Interpretive Data was last revised on [...] Pediatrics 2011;128:S213 2. NCEP Expert Panel. Circulation 2003;110:227 Current Interpretive Data was last revised on [...] on 2017. Non-HDL Cholesterol 147 mg/dL ALEISHA SPAIN Comment: Interpretive Data Ages < or = [...] revised on 2017. Chol/HDL ratio 4 ALEISHA SPAIN Blood specimen (specimen) 10/12/2020 9:41 AM CDT 10/12/2020 10:02 AM CDT Narrative ALEISHA SPAIN - 10/12/2020 10:58 AM CDT Has the patient been fasting for 8 hours or more?->Yes us Elizabeth Pollard MD LAB BLOOD ORDERABLES Final Result ALEISHA [address] [facility] Department [place] [address] * Screening Mammogram Bilateral W Jake (06/17/2020 11:12 AM CDT) Anatomical Region Laterality Modality Breast Bilateral Mammography Narrative 06/23/2020 3:16 PM CDT Mammogram Technique: Bilateral Digital Breast Tomosynthesis, Bilateral C-view 2D Screening mammogram. Views obtained: bilateral craniocaudal and bilateral mediolateral oblique. Computer Aided Detection was performed. Mammogram Findings: The present examination has been compared to prior imaging studies performed at [place], [place] on 01/30/2016 and 08/21/2018. There are [...] compared to prior imaging studies performed at [place], [place] on 01/30/2016 and 08/21/2018. There are [...] HPV, reflex to Genotyping (03/21/2020 3:53 AM FIBRE CEMENT MOULDER) 03/21/2020 3:53 AM FIBRE CEMENT MOULDER 03/21/2020 5:21 PM FIBRE CEMENT MOULDER Narrative [facility] - 03/25/2020 11:14 AM FIBRE CEMENT MOULDER EPIC results best viewed via link to PDF [facility] [place] [address] CYTOPATHOLOGY REPORT FINAL Patient Name: JULIENNE BRAVO Gender: F : 1970 (Age: 49) Address: [address] [place] [address] Hospital #: [id number] Service: Gynecology Location: [facility] Patient Type: [facility] Ancillary Taken: 03/21/2020 Received: 03/21/2020 Accessioned: 03/21/2020 [...] 68. This HPV test was performed at [facility] in [place], [place] utilizing the Gen-Probe Aptima assay. mg/03/25/2020 11:14 TOMA Valdez(ASCP) Report Electronically Reviewed and [...] determined by the Surgical Pathology Department at [facility] as part of an ongoing coding quality coordinator program and in compliance with federally mandated [...] determined by the Surgical Pathology Department of [facility]. It has not been cleared or approved by the U. S. Food and Drug Administration. Tonia Casey MD LAB CYTOLOGY ORDERABLES Nargis alonso Result [facility] [address] [facility] [address] [place] [address] from Last 3 Months or Most Recently Relevant to Health Maintenance Insurance [facility] AETNA [facility] Advance Directives For more information, please contact: [phone] * Full Code (Latest Code Status on File) Date Activated Date Inactivated Comments 07/28/2020 7:49 AM 07/29/2020 9:58 PM * Full Code Date Activated Date Inactivated Comments 07/28/2020 7:49 AM 07/28/2020 7:49 AM Care Teams Boot Maker Relationship Specialty Start Date End Date Elizabeth Pollard MD [address] [facility] [address] [address] PCP - General Internal Medicine 09/07/19
--- OUTSIDE RECORDS SUMMARY | 2024-04-23 21:51 | XMS_ITS | Patient Health Summary ---
Author Organization [facility] Address [address] [place] [address] Care Team Providers Care Palliative Care Nurse Name Role Phone Matt Barnes MD Primary Care Provider [phone] Note from [facility],non-owned Affiliates and Associated Physician Practices is amultiple site organization consisting of ambulatory clinics and hospital sitesin [place], [place], [place] and [place]. This disclosure is being madepursuant to the Care Everywhere program and may not contain all information available regarding this patient. Last updated 17.[facility] Allergies * Shellfish Allergy(Anaphylaxis) -High Criticality Medications * Be aware that medications may not be up to date on this document. Alwaysverify current medications with the patient. * rivaroxaban (XARELTO) 10 MG tablet(Started 10/04/2016) Take 10 mg by mouth daily with dinner. * lisinopril (PRINIVIL; ZESTRIL) 10 MG tablet(Started 09/27/2016) Take 10 mg by mouth DAILY. * spironolactone (ALDACTONE) 25 MG tablet(Started 09/27/2016) Take 25 mg by mouth DAILY. * atorvastatin (LIPITOR) 40 MG tablet(Started 09/27/2016) Take 40 mg by mouth DAILY. * potassium chloride SA (MICRO-K8) 8 MEQ capsule(Started 09/27/2016) Take 10 mg by mouth DAILY. * sotalol (BETAPACE) 80 MG tablet(Started 09/27/2016) Take 80 mg by mouth BID. * metFORMIN (GLUCOPHAGE) 500 MG tablet(Started 09/27/2016) Take 500 mg by mouth 2 times daily with morning and evening meal. * furosemide (LASIX) 40 MG tablet(Started 09/27/2016) Take 40 mg by mouth DAILY. * omeprazole EC (PRILOSEC OTC) 20 MG tablet(Started 09/27/2016) Take 20 mg by mouth DAILY. * insulin glargine (LANTUS) vial(Started 09/27/2016) Inject 12 Units subcutaneously. * amLODIPine (NORVASC) 10 MG tablet(Started 09/27/2016) Take 10 mg by mouth DAILY. * albuterol HFA (PROAIR HFA) 108 (90 BASE) MCG/ACT inhaler(Started 06/13/2017) Inhale 2 puffs by mouth q6h PRN (Wheezing). * traMADol (ULTRAM) 50 MG tablet(Started 06/13/2017) Take 50 mg by mouth q6h PRN (Pain). * ibuprofen (MOTRIN) 600 MG tablet(Started 09/10/2017) Take 1 tablet by mouth every 6 hours as needed for Pain * carvedilol (COREG) 6.25 MG tablet Take 6.25 mg by mouth 2 times daily with morning and evening meal * cyclobenzaprine (FLEXERIL) 10 MG tablet Take 10 mg by mouth 3 times daily as needed for Muscle Spasms * gabapentin (NEURONTIN) 400 MG capsule Take 400 mg by mouth 3 times daily * magnesium oxide (MAGOX 400) 400 (241.3 Mg) MG tablet Take 400 mg by mouth once daily * cyclobenzaprine (FLEXERIL) 10 MG tablet(Started 04/28/2019) Take 1 tablet by mouth 3 times daily as needed for Muscle Spasms Active Problems Problem Noted Date Diagnosed Date [...] Comments Blood Pressure 137/74 04/28/2019 3:09 AM VEGETABLE HARVEST MACHINE OPERATOR Pulse 82 04/28/2019 3:09 AM VEGETABLE HARVEST MACHINE OPERATOR Temperature 36.4 C (97.6 F) 04/28/2019 3:09 AM VEGETABLE HARVEST MACHINE OPERATOR Respiratory Rate 18 04/28/2019 3:09 AM VEGETABLE HARVEST MACHINE OPERATOR Oxygen Saturation 99% 04/28/2019 3:09 AM VEGETABLE HARVEST MACHINE OPERATOR Inhaled Oxygen Concentration - - Weight 123.8 kg (273 lb) 04/13/2019 10:57 AM VEGETABLE HARVEST MACHINE OPERATOR Height 157.5 cm (5' 2 ) 04/13/2019 10:57 AM VEGETABLE HARVEST MACHINE OPERATOR Body Mass Index 49.93 04/13/2019 10:57 AM VEGETABLE HARVEST MACHINE OPERATOR Procedures * CT NECK SOFT TISSUE W CONT(Performed 04/28/2019) Performed for Neck swelling * BASIC METABOLIC PANEL (CALCIUM TOTAL)(Performed 04/28/2019) * CBC W AUTO DIFFERENTIAL(Performed 04/28/2019) * CARDIAC RHYTHM STRIP ORDER(Performed 09/13/2017) * GLUCOSE - POINT OF CARE(Performed 09/10/2017) * PATHOLOGY TISSUE EXAM (STL)(Performed 09/10/2017) Performed for Diagnosis unknown * LARYNGEAL MASK AIRWAY(Performed 09/10/2017) * HYSTEROSCOPY WITH DILATION & CURETTAGE(Performed 09/10/2017) Performed for Diagnosis unknown * CONIZATION CERVIX (LASER)(Performed 09/10/2017) Performed for Diagnosis unknown * EXAM UNDER ANESTHESIA PELVIC(Performed 09/10/2017) Performed for Diagnosis unknown * URINALYSIS REFLEX TO MICROSCOPIC NO CULTURE(Performed 09/10/2017) Performed for Preop examination * COMPREHENSIVE METABOLIC PANEL(Performed 09/10/2017) Performed for Preop examination * CBC W AUTO DIFFERENTIAL(Performed 09/10/2017) Performed for Preop examination * HCG URINE QUALITATIVE - POCT (IP) INTERFACED(Performed 09/10/2017) * GLUCOSE - POINT OF CARE(Performed 09/10/2017) * HCG URINE QUALITATIVE - POCT (IP) INTERFACED(Performed 09/10/2017) * HCG URINE QUAL POCT NOTIFICATION(Performed 09/10/2017) Performed for Preop examination * CBC W AUTO DIFFERENTIAL(Performed 06/13/2017) * COMPREHENSIVE METABOLIC PANEL(Performed 06/13/2017) * PT-INR [facility](Performed 06/13/2017) * URINALYSIS REFLEX TO MICROSCOPIC NO CULTURE(Performed 06/13/2017) * CBC W AUTO DIFFERENTIAL(Performed 06/13/2017) * XR ANKLE LEFT 3VW OR MORE(Performed 10/14/2016) * XR HIP LEFT 2VW OR MORE(Performed 10/14/2016) * XR KNEE LEFT 3VW(Performed 10/14/2016) * DRUG ABUSE PANEL 10-20+ETHANOL URINE NO CONFIRM(Performed 10/14/2016) * CT HEAD WO CONTRAST(Performed 10/14/2016) * CT CHEST ABDOMEN PELVIS W CONT(Performed 10/14/2016) * CT CERVICAL SPINE WO CONTRAST(Performed 10/14/2016) * CT THORACIC SPINE WO CONTRAST(Performed 10/14/2016) * CT LUMBAR SPINE WO CONTRAST(Performed 10/14/2016) * XR KNEE RIGHT 2VW OR LESS(Performed 10/14/2016) * XR CHEST 1VW PORTABLE(Performed 10/14/2016) * XR PELVIS 1 OR 2VW(Performed 10/14/2016) * CBC W AUTO DIFFERENTIAL(Performed 10/14/2016) * PT-INR [facility](Performed 10/14/2016) * COMPREHENSIVE METABOLIC PANEL(Performed 10/14/2016) * ALCOHOL ETHYL BLOOD(Performed 10/14/2016) * TYPE + SCREEN PANEL(Performed 10/14/2016) * CBC W AUTO DIFFERENTIAL(Performed 10/14/2016) * CT CERVICAL POST MYELOGRAM(Performed 10/04/2016) * FL MYELOGRAM CERVICAL(Performed 10/04/2016) * GLUCOSE ACCUCHECK(Performed 10/04/2016) * BASIC METABOLIC PANEL (CALCIUM TOTAL)(Performed 09/28/2016) * XR CERVICAL SPINE 4 OR 5VW(Performed 09/28/2016) Results * CT SOFT TISSUE NECK WITH CONTRAST (04/28/2019 1:45 AM VEGETABLE HARVEST MACHINE OPERATOR) Anatomical Region Laterality Modality Head Computed Tomogra phy 04/28/2019 9:37 AM VEGETABLE HARVEST MACHINE OPERATOR Impressions 04/28/2019 10:42 AM VEGETABLE HARVEST MACHINE OPERATOR Negative for mass or adenopathy. Edited by Mera Fortune on 04/28/2019 9:47 AM Reading Radiologist: Lemuel Lane MD on 04/28/2019 at 10:42 AM Narrative 04/28/2019 10:42 AM VEGETABLE HARVEST MACHINE OPERATOR CT NECK FOR SOFT TISSUES HISTORY: Neck pain, neck mass. Images are obtained from the skull base to the thoracic inlet during contrast infusion of 100 mL Isovue-370. No neck mass or adenopathy is seen. Airway is patent. Thyroid gland appears normal. A few strands of density in the mediastinum may be secondary to thymic remnant. Procedure Note Lemuel Lane MD - 04/28/2019 CT NECK FOR SOFT TISSUES HISTORY: Neck pain, neck mass. Images are obtained from the skull base to the thoracic inlet during contrast infusion of 100 mL Isovue-370. No neck mass or adenopathy is seen. Airway is patent. Thyroid gland appears normal. A few strands of density in the mediastinum may be secondary to thymic remnant. IMPRESSION Negative for mass or adenopathy. Edited by Mera Fortune on 04/28/2019 9:47 AM Reading Radiologist: Lemuel Lane MD on 04/28/2019 at 10:42 AM Del Price PA-C CT ORDERABLES * (ABNORMAL) CBC W AUTO DIFFERENTIAL (04/28/2019 12:48 AM VEGETABLE HARVEST MACHINE OPERATOR) Only the most recent of6 resultswithin the time period is included. WBC 11.0(H) 4.4 - 10.7 x10E9/L 04/28/2019 1:[address] [facility] WBC Corrected 04/28/2019 1:[address] [facility] RBC 5.05 3.80 - 5.20 x10E12/L 04/28/2019 1:[address] [facility] Hemoglobin 13.9 12.0 - 15.6 gm/dL 04/28/2019 1:[address] [facility] Hematocrit 43.5 35.9 - 45.5 % 04/28/2019 1:[address] [facility] MCV 86.1 80.7 - 98.3 fl 04/28/2019 1:[address] [facility] MCH 27.5 26.7 - 34.0 pg 04/28/2019 1:[address] [facility] MCHC 32.0 30.8 - 35.9 gm/dL 04/28/2019 1:[address] [facility] Platelet Count 314 153 - 416 x10E9/L 04/28/2019 1:[address] [facility] RDW-CV 13.6 12.1 - 14.9 % 04/28/2019 1:[address] [facility] MPV 10.8 9.4 - 12.9 fl 04/28/2019 1:[address] [facility] Neutrophils % 60.1 44.0 - 73.0 % 04/28/2019 1:[address] [facility] Lymphocytes % 30.9 20.0 - 43.0 % 04/28/2019 1:[address] [facility] Monocytes % 7.2 5.0 - 13.0 % 04/28/2019 1:[address] [facility] Eosinophils % 1.4 0.0 - 6.0 % 04/28/2019 1:[address] [facility] Basophils % 0.2 0.0 - 2.0 % 04/28/2019 1:[address] [facility] Immature Granulocytes 0.2 0 - 1 % 04/28/2019 1:[address] [facility] Neutrophil Absolute 6.64 2.01 - 7.14 x10E9/L 04/28/2019 1:[address] [facility] Lymphocytes Absolute 3.41 1.07 - 3.94 x10E9/L 04/28/2019 1:[address] [facility] Monocytes Absolute 0.79 0.26 - 1.07 x10E9/L 04/28/2019 1:[address] [facility] Eosinophils Absolute 0.16 0 - 0.47 x10E9/L 04/28/2019 1:[address] [facility] Basophils Absolute 0.02 0 - 0.08 x10E9/L 04/28/2019 1:[address] [facility] Immature Granulocytes Absolute 0.02 0.00 - 0.06 x10E9/L 04/28/2019 1:[address] [facility] nRBC Auto 0 /100 WBC 04/28/2019 1:[address] [facility] Blood BLOOD SPECIMEN / Unknown Venipuncture / Unknown 04/28/2019 12:48 AM VEGETABLE HARVEST MACHINE OPERATOR 04/28/2019 12:58 AM [facility] Del Price PA-C LAB - HEMATOLOGY OR DERABLES [facility] [address] [place] [address] * (ABNORMAL) BASIC METABOLIC PANEL (CALCIUM TOTAL) (04/28/2019 12:48 AM VEGETABLE HARVEST MACHINE OPERATOR) Only the most recent of2 resultswithin the time period is included. [facility] Glucose 397(H) 70 - 105 mg/dL 04/28/2019 1:[address] [facility] Sodium 137 136 - 145 mmol/L 04/28/2019 1:[address] [facility] Potassium 3.9 3.5 - 5.1 mmol/L 04/28/2019 1:[address] [facility] Chloride 102 98 - 107 mmol/L 04/28/2019 1:[address] [facility] CO2 24 23 - 31 mmol/L 04/28/2019 1:[address] [facility] Calcium 9.4 8.4 - 10.4 mg/dL 04/28/2019 1:[address] [facility] Anion Gap 11 8 - 16 mmol/L 04/28/2019 1:[address] [facility] BUN 9 7 - 18.7 mg/dL 04/28/2019 1:[address] [facility] Creatinine 0.92 0.57 - 1.11 mg/dL 04/28/2019 1:[address] [facility] eGFR by MDRD >60 >60 mL/min/1.7 3m2 04/28/2019 1:[address] [facility] eGFR by MDRD >60 >60 mL/min/1.7 3m2 04/28/2019 1:[address] [facility] Blood BLOOD SPECIMEN / Unknown Venipuncture / Unknown 04/28/2019 12:48 AM VEGETABLE HARVEST MACHINE OPERATOR 04/28/2019 12:58 AM [facility] Del Price PA-C LAB - CHEMISTRY ORD ERABLES [facility] [address], [place] [id number] * CARDIAC RHYTHM STRIP ORDER (09/13/2017 5:42 PM CDT) Narrative 09/13/2017 5:42 PM CDT Ordered by an unspecified provider. Scanned Document CARDIAC SERVICES ORD ERABLES * (ABNORMAL) GLUCOSE - POINT OF CARE (09/10/2017 1:24 PM CDT) Only the most recent of2 resultswithin the time period is included. [facility] Glucose WB/POC 212(H) 70 - 106 mg/dL 09/10/2017 2:50 PM CDT [facility] Blood BLOOD SPECIMEN / Unknown 09/10/2017 1:24 PM CDT 09/10/2017 2:50 PM CDT Ángel Sethi MD LAB - POINT OF CARE ORDERABLES [facility] [address] [place] [address] * GROSS + MICRO EXAM (STL) (09/10/2017 12:46 PM CDT) Case Report Surgical Pathology Report Case: [id number] Authorizing Provider: Ángel Sethi MD Collected: 09/10/2017 12:46 PM Ordering Location: [facility] Received: 09/10/2017 01:53 PM Pathologist: Basil Bullock MD Specimens: A) - Endocervix Curettings B) - Endometrium Curettings C) - Cervix Conization, CONE BYPOSY 09/11/2017 3:07 PM CDT [facility] Final Diagnosis 1. Endocervix curettings (A): -- Insufficient for diagnosis -- Primarily blood and fibrin 2. Endometrium curettings (B): -- Scant endocervical tissue with minimal endometrial cells in a background of blood and fibrin -- No evidence of dysplasia seen 3. Cone biopsy (C): -- Benign squamous mucosa -- No evidence of dysplasia -- Margins with benign squamous mucosa ED/GC/leann 09/11/2017 3:07 PM CDT [facility] Clinical History The patient is a 47 year old, G 5,P3,Ab 2 woman who presented with a history of AUB with a known history of multiple myoma. Recent PAP smear showed HGSIL, cannot rule out carcinoma. 09/11/2017 3:07 PM CDT [facility] Gross Description The specimen is received in three formalin-filled containers each labeled with the patient's name, Young, Julienne. Specimen A, endocervical curettage, consists of a scant amount of blood and tissue which measures 0.4 x 0.1 x less than 0.1 cm and is submitted in toto in cassette A1. Specimen B, endometrium curetting, are multiple tissue fragments which are red-purple and gelatinous and have an aggregate measurement of 1.5 x 1.1 x 0.1 cm and are submitted in toto in cassette B1. Specimen C, cone biopsy, with a black stitch on one end which is designated 12 o'clock. In the middle of the specimen, there is an ovoid opening which measures 0.5 cm in diameter. A 12 to 3 to 6 o'clock surgical margin is inked green. The 6 to 9 to 12 o'clock surgical margin is inked orange. The specimen is radially sectioned and submitted as follows: C1 - 12 to 3 o;clock C2- 3 to 6 o'clock C3 - 6 to 9 o'clock C4 - 9 to 12 o'clock ED/na 09/11/2017 3:07 PM [facility] Microscopic Description Microscopic examination of specimens A and B demonstrate primarily a background of blood and fibrin. Specimen B also demonstrates strips of endocervical glands and stroma. There is no evidence of dysplasia. Due to the lack of endometrial glands present, cannot further comment on endometrium. Specimen C demonstrates benign squamous mucosa with no evidence of dysplasia. ED/GC/leann 09/11/2017 3:07 PM [facility] Disclaimer All histochemical and/or immunohistochemical results are interpreted with controls that demonstrate appropriate staining reactions before reporting results. Note on use of immunocytochemistry reagents: This test was developed and its performance characteristic determined by [facility], Department of Laboratory Medicine. It has not been cleared or approved by the U.S. Food and Drug Administration (FDA). The FDA has determined that such clearance or approval is not necessary. The test is used for clinical purpose. It should not be regarded as investigational or for research. This laboratory is certified to perform high complexity testing. 09/11/2017 3:07 PM [facility] Embedded Images 09/11/2017 3:07 PM [facility] Pathology/Cytology CURETTINGS / Unknown 09/10/2017 12:46 PM CDT 09/10/2017 1:53 PM T Miscellaneous samples (specimen) SPECIMEN FROM ENDOMETRIUM OBTAINED BY CURETTAGE / Unknown 09/10/2017 12:55 PM CDT 09/10/2017 1:53 PM CDT Miscellaneous samples (specimen) SPECIMEN FROM LESION OF UTERINE CERVIX OBTAINED BY CONE BIOPSY / Unknown 09/10/2017 12:55 PM CDT 09/10/2017 1:53 PM CDT Ángel Sethi MD LAB - PATHOLOGY/CYTO LOGY ORDERABLES [facility] [address], [place] [id number] * (ABNORMAL) URINALYSIS REFLEX TO MICROSCOPIC NO CULTURE (09/10/2017 10:21 AM CDT) Only the most recent of2 resultswithin the time period is included. Color UA Yellow Straw, Yellow 09/10/2017 10:32 AM T [facility] Clarity UA Slt Cloudy(A) Clear 09/10/2017 10:32 AM [facility] Glucose UA 1+(A) Negative 09/10/2017 10:32 AM T [facility] Bilirubin UA Negative Negative 09/10/2017 10:32 AM T [facility] Ketone UA Negative Negative 09/10/2017 10:32 AM T [facility] Specific [place] UA 1.021 1.005 - 1.030 09/10/2017 10:32 AM T [facility] Blood UA Negative Negative 09/10/2017 10:32 AM [facility] pH UA 5.0 5.0 - 8.0 pH 09/10/2017 10:32 AM [facility] Protein UA Negative Negative 09/10/2017 10:32 AM T [facility] Urobilinogen UA Negative Negative mg/dL 09/10/2017 10:32 AM [facility] Nitrite UA Negative Negative 09/10/2017 10:32 AM [facility] Leukocyte UA Negative Negative 09/10/2017 10:32 AM [facility] Urine Microscopy Urine microscopy not indicated 09/10/2017 10:32 AM [facility] Urine URINE SPECIMEN OBTAINED BY CLEAN CATCH PROCEDURE / Unknown Collection / Unknown 09/10/2017 10:21 AM CDT 09/10/2017 10:23 AM CDT Narrative [facility] - 09/10/2017 10:32 AM CDT Ángel Sethi MD LAB - URINALYSIS ORD ERABLES [facility] [address] [place] [address] * (ABNORMAL) COMPREHENSIVE METABOLIC PANEL (09/10/2017 10:13 AM CDT) Only the most recent of3 resultswithin the time period is included. [facility] Signature Glucose 232(H) 74 - 106 mg/dL 09/10/2017 10:43 AM CDT [facility] Sodium 137 136 - 145 mmol/L 09/10/2017 10:43 AM CDT [facility] Potassium 3.8 3.5 - 5.1 mmol/L 09/10/2017 10:43 AM CDT [facility] Chloride 103 98 - 107 mmol/L 09/10/2017 10:43 AM CDT [facility] CO2 29 22 - 31 mmol/L 09/10/2017 10:43 AM CDT [facility] Calcium 8.8 8.5 - 10.1 mg/dL 09/10/2017 10:43 AM CDT [facility] Anion Gap 5(L) 8 - 16 mmol/L 09/10/2017 10:43 AM CDT [facility] BUN 8 7 - 21 mg/dL 09/10/2017 10:43 AM CDT [facility] Creatinine 0.62 0.50 - 1.30 mg/dL 09/10/2017 10:43 AM CDT [facility] Alkaline Phosphatase 80 38 - 126 U/L 09/10/2017 10:43 AM CDT [facility] ALT 12(L) 13 - 61 U/L 09/10/2017 10:43 AM CDT [facility] AST 15 5 - 40 U/L 09/10/2017 10:43 AM CDT [facility] Protein Total 7.1 6.4 - 8.2 gm/dL 09/10/2017 10:43 AM CDT [facility] Albumin 3.0(L) 3.4 - 5.0 gm/dL 09/10/2017 10:43 AM CDT [facility] Bilirubin Total 0.5 0.2 - 1.0 mg/dL 09/10/2017 10:43 AM [facility] eGFR by MDRD >60 >60 mL/min/1.7 3m2 09/10/2017 10:43 AM CDT [facility] eGFR by MDRD >60 >60 mL/min/1.7 3m2 09/10/2017 10:43 AM CDT [facility] Blood BLOOD SPECIMEN / Unknown Venipuncture / Unknown 09/10/2017 10:13 AM CDT 09/10/2017 10:13 AM CDT Ángel Sethi MD LAB - CHEMISTRY ORDE RABTRICIA Performing Organization Address City/[facility]/ZIP Co de Phone Number [facility] [address] [place] [phone] * HCG URINE QUALITATIVE - POCT (IP) INTERFACED (09/10/2017 10:10 AM CDT) Only the most recent of2 resultswithin the time period is included. HCG Qual Urine Negative Negative 09/10/2017 11:30 AM CDT [facility] Urine URINE / Unknown 09/10/2017 1 0:10 AM CDT 09/10/2017 11:30 AM CDT Ángel Sethi MD LAB - POINT OF CARE ORDERABLES Performing Organization Address [facility] Co de Phone Number [facility] [address] [place] [phone] * HCG URINE QUAL POCT NOTIFICATION (09/10/2017 9:17 AM CDT) Comment Notification Label Only - See Separate Report 09/10/2017 11:00 AM CDT [facility] Urine URINE / Unknown 09/10/2017 9 :17 AM CDT 09/10/2017 9:17 AM CDT Yusuf Lyle DO LAB - URINALYSIS ORD ERABLES Performing Organization Address [facility] Co de Phone Number [facility] [address] [place] [phone] * PT-INR [facility] (06/13/2017 10:05 AM CDT) Only the most recent of2 resultswithin the time period is included. PT 14.4 12.1 - 14.8 Seconds [facility] INR 1.1 See Comment [facility] Comment: Suggested therapeutic range for low-intensity coumadin therapy for venous thromboembolism prophylaxis is an INR of 2.0-3.0. For high risk patients (Mitral Valve Prosthesis, Atrial Fibrillation, history of TIA/stroke), suggested prophylactic therapeutic range is an INR of 2.5-3.5. Blood specimen (specimen) BLOOD SPECIMEN / Unknown 06/13/2017 10:05 AM CDT 06/13/2017 10:26 AM CDT Narrative [facility] - 06/13/2017 10:41 AM CDT Is patient on Heparin, Argatroban or Dabigatran?->N Osman Shore MD LAB - COAGULATIO N ORDERABLES Performing Organization Address City/State/[facility] Co de Phone Number [address] [phone] * XR ANKLE LEFT 3VW OR MORE (10/14/2016 10:26 PM CDT) Anatomical Region Laterality Modality Lower Extremity Other Impressions 10/15/2016 9:12 AM CDT IMPRESSION: No acute fracture or dislocation identified. Dictated by Tyler Newman MD (residential subcontractor). I, Dr. OSMAN JOSHI M.D. have personally reviewed and interpreted this examination/study. This report was electronically signed by OSMAN JOSHI M.D. on 10/15/2016 9:12 AM . Narrative 10/15/2016 9:12 AM CDT EXAMINATION: XR HIP LEFT 2-3 VW, XR ANKLE LEFT 3+ VW, XR KNEE LEFT 3 VW HISTORY: left leg pain COMPARISON: No prior study is available for comparison. FINDINGS: Hip: The osseous structures are intact and well aligned without acute fracture or dislocation. The hip joint space is preserved. Bone density and texture are normal. Radiographic contrast opacifies the urinary bladder and the left distal ureter. Knee: The osseous structures are intact and well aligned without acute fracture or dislocation. There are mild tricompartment degenerative changes. No joint effusion is seen. Bone density and texture are normal. Ankle: The osseous structures are intact and well aligned without acute fracture or dislocation. The ankle mortise is intact. Bone density and texture are normal. There is mild soft tissue swelling around the ankle. Procedure Note Osman Joshi MD - 06/14/2017 EXAMINATION: XR HIP LEFT 2-3 VW, XR ANKLE LEFT 3+ VW, XR KNEE LEFT 3 VW HISTORY: left leg pain COMPARISON: No prior study is available for comparison. FINDINGS: Hip: The osseous structures are intact and well aligned without acute fractureor dislocation. The hip joint space is preserved. Bone density and textureare normal. Radiographic contrast opacifies the urinary bladder and theleft distal ureter. Knee: The osseous structures are intact and well aligned without acute fractureor dislocation. There are mild tricompartment degenerative changes. Nojoint effusion is seen. Bone density and texture are normal. Ankle: The osseous structures are intact and well aligned without acute fractureor dislocation. The ankle mortise is intact. Bone density and texture arenormal. There is mild soft tissue swelling around the ankle. IMPRESSION IMPRESSION: No acute fracture or dislocation identified. Dictated by Tyler Newman MD (residential subcontractor). Dr. OSMAN Ramos M.D. have personally reviewed and interpreted thisexamination/study. This report was electronically signed by OSMAN JOSHI M.D. on 10/15/20169:12 AM . Yovani Oseguera MD DIAGNOSTIC IMAGING O RDERABLES * XR HIP LEFT 2VW OR MORE (10/14/2016 10:26 PM CDT) Anatomical Region Laterality Modality Pelvis, Lower Extremity Other Impressions 10/15/2016 9:12 AM CDT IMPRESSION: No acute fracture or dislocation identified. Dictated by Tyler Newman MD (residential subcontractor). Dr. OSMAN aRmos M.D. have personally reviewed and interpreted this examination/study. This report was electronically signed by OSMAN JOSHI M.D. on 10/15/2016 9:12 AM . Narrative 10/15/2016 9:12 AM CDT EXAMINATION: XR HIP LEFT 2-3 VW, XR ANKLE LEFT 3+ VW, XR KNEE LEFT 3 VW HISTORY: left leg pain COMPARISON: No prior study is available for comparison. FINDINGS: Hip: The osseous structures are intact and well aligned without acute fracture or dislocation. The hip joint space is preserved. Bone density and texture are normal. Radiographic contrast opacifies the urinary bladder and the left distal ureter. Knee: The osseous structures are intact and well aligned without acute fracture or dislocation. There are mild tricompartment degenerative changes. No joint effusion is seen. Bone density and texture are normal. Ankle: The osseous structures are intact and well aligned without acute fracture or dislocation. The ankle mortise is intact. Bone density and texture are normal. There is mild soft tissue swelling around the ankle. Procedure Note Osman Joshi MD - 06/14/2017 EXAMINATION: XR HIP LEFT 2-3 VW, XR ANKLE LEFT 3+ VW, XR KNEE LEFT 3 VW HISTORY: left leg pain COMPARISON: No prior study is available for comparison. FINDINGS: Hip: The osseous structures are intact and well aligned without acute fractureor dislocation. The hip joint space is preserved. Bone density and textureare normal. Radiographic contrast opacifies the urinary bladder and theleft distal ureter. Knee: The osseous structures are intact and well aligned without acute fractureor dislocation. There are mild tricompartment degenerative changes. Nojoint effusion is seen. Bone density and texture are normal. Ankle: The osseous structures are intact and well aligned without acute fractureor dislocation. The ankle mortise is intact. Bone density and texture arenormal. There is mild soft tissue swelling around the ankle. IMPRESSION IMPRESSION: No acute fracture or dislocation identified. Dictated by Tyler Newman MD (residential subcontractor). IDr. OSMAN M.D. have personally reviewed and interpreted thisexamination/study. This report was electronically signed by OSMAN JOSHI M.D. on 10/15/20169:12 AM . Yovani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 is a small 6 mm calcified nodule in the left lung apex. Pacemaker leads are partially image to the superior vena cava. No other soft tissue abnormality is identified. C2-3: There is mild disc bulge. There is no central canal stenosis. There is no facet osteoarthritis. There is no uncovertebral joint osteoarthritis. There is no neural foraminal stenosis. C3-4: There is mild disc bulge. There is no central canal stenosis. There is no facet osteoarthritis. There is no uncovertebral joint osteoarthritis. There is no neural foraminal stenosis. C4-5: There is mild disc bulge. There is no central canal stenosis. There is no facet osteoarthritis. There is no uncovertebral joint osteoarthritis. There is no neural foraminal stenosis. C5-6: There is mild disc bulge. There is no central canal stenosis. There is mild facet osteoarthritis. There is mild uncovertebral joint osteoarthritis. There is no neural foraminal stenosis. C6-7: There is mild disc bulge. There is no central canal stenosis. There is mild facet osteoarthritis. There is no uncovertebral joint osteoarthritis. There is no neural foraminal stenosis. C7-T1: There is no disc bulge. There is no central canal stenosis. There is no facet osteoarthritis. There is no uncovertebral joint osteoarthritis. There is no neural foraminal stenosis. Procedure Note Lavelle Taylor MD - 06/14/2017 EXAMINATION: 1. Lumbar puncture (LP) under fluoroscopic guidance for cervicalmyelogram 2. Computed tomography (CT) of the cervical spine with contrast HISTORY: Neck pain and subjective upper extremity weakness TECHNIQUE: The risks and benefits of the lumbar puncture and myelographyincluding, but not limited to, infection, bleeding, seizure, epiduralhematoma, post spinal headache, cerebrospinal fluid (CSF) leak requiringblood patch procedure, nausea, vomiting, irritation or damage to nerves causing pain or permanent injurywere discussed with the patient. After alternatives were discussed and theopportunity to ask questions was provided, the patient acknowledgedunderstanding, gave verbal and written consent, and wished to proceed. Attending physician: Dr. Taylor was present for the artis portions of thisprocedure. The L3-4 level was localized with fluoroscopy. The skin overlying thislevel was then sterilely prepped, draped, and infiltrated with 1%lidocaine for local anesthesia. Under intermittent fluoroscopic guidance,a 20 gauge 6 inch needle was inserted into the thecal sac at this level and 10 ml of Omnipaque 300 contrast wasinstilled. The contrast was pooled into the cervical region. Prone andlateral fluoroscopic images of the cervical spine were obtained and thenthe patient was taken to the CT scanner where CT of the cervical spine was performed. The patient tolerated theprocedure well. The patient was then transferred to the ambulatory careunit for further observation and at least 3 hours of bedrest. FLUOROSCOPY TIME: 41 seconds FINDINGS: No prior study is available for comparison at the time of thisdictation. Fluoroscopic images confirm intrathecal injection with contrast flowingfreely in the intradural-extramedullary space. The remainder of thefindings are fully characterized on the subsequently performed CT. Pleasesee the report below for further details. There is gentle cervical kyphosis. Vertebral bodies are normal in heightwithout evidence of compression fractures. The craniocervical junction isnormal. The intervertebral discs are normal in height. No myelographicblock of intrathecal contrast is seen. There is a small 6 mm calcified nodule in the left lung apex.Pacemaker leads are partially image to the superior vena cava. No othersoft tissue abnormality is identified. C2-3: There is mild disc bulge. There is no central canal stenosis. Thereis no facet osteoarthritis. There is no uncovertebral jointosteoarthritis. There is no neural foraminal stenosis. C3-4: There is mild disc bulge. There is no central canal stenosis. Thereis no facet osteoarthritis. There is no uncovertebral jointosteoarthritis. There is no neural foraminal stenosis. C4-5: There is mild disc bulge. There is no central canal stenosis. Thereis no facet osteoarthritis. There is no uncovertebral jointosteoarthritis. There is no neural foraminal stenosis. C5-6: There is mild disc bulge. There is no central canal stenosis. Thereis mild facet osteoarthritis. There is mild uncovertebral jointosteoarthritis. There is no neural foraminal stenosis. C6-7: There is mild disc bulge. There is no central canal stenosis. Thereis mild facet osteoarthritis. There is no uncovertebral jointosteoarthritis. There is no neural foraminal stenosis. C7-T1: There is no disc bulge. There is no central canal stenosis. Thereis no facet osteoarthritis. There is no uncovertebral jointosteoarthritis. There is no neural foraminal stenosis. IMPRESSION IMPRESSION: 1. Mild degenerative disc and joint disease in the cervical spine withoutsignificant central canal or neural foraminal stenosis. This report was approved by Aldair Vermillion on 10/04/2016 12:15 PM . I, Dr. LAVELLE TAYLOR M.D. have personally reviewed and interpreted thisexamination/study. This report was electronically signed by LAVELLE TAYLOR M.D. on 10/04/201612:48 PM . Toan Simon DO FLUOROSCOPY ORDERA BLES * (ABNORMAL) GLUCOSE ACCUCHECK (10/04/2016 8:48 AM CDT) Glucose, Fingerstick 210(H) 70-115mg/d L mg/dL JANIE ABAD) Comment:Manager Software: GISELE VENEGAS 10/04/2016 8:48 AM CDT Narrative JNAIE ABAD) - 10/04/2016 8:48 AM CDT Ordered by Alfred Joya [id number] Historical Provider MD LAB - CHEMISTRY O RDERABLES JANIE ABAD) * XR CERVICAL SPINE 4 OR 5VW (09/28/2016 11:09 AM CDT) Anatomical Region Laterality Modality Spine Other Impressions 09/28/2016 10:39 PM CDT IMPRESSION: No acute fracture or subluxation in flexion or extension identified. Dictated by Tyler Newman MD (Resident). Dr. SUKH Ramos MD have personally reviewed and interpreted this examination/study. This report was electronically signed by SUKH RHODES MD on 09/28/2016 10:39 PM . Narrative 09/28/2016 10:39 PM CDT EXAMINATION: XR SPINE CERVICAL 4 VW MIN HISTORY: neck pain COMPARISON: No prior study is available for comparison. FINDINGS: The vertebral bodies are normally aligned. Alignment is unchanged in flexion and extension. No acute fracture or compression deformity is identified. The intervertebral disc spaces are maintained. Multiple anterior osteophytes are present. The predental interval and prevertebral soft tissues are normal. Bone density and texture are normal. Procedure Note Sukh Rhodes MD - 06/14/2017 EXAMINATION: XR SPINE CERVICAL 4 VW MIN HISTORY: neck pain COMPARISON: No prior study is available for comparison. FINDINGS: The vertebral bodies are normally aligned. Alignment is unchanged inflexion and extension. No acute fracture or compression deformity isidentified. The intervertebral disc spaces are maintained. Multipleanterior osteophytes are present. The predental interval and prevertebral soft tissues are normal. Bone density andtexture are normal. IMPRESSION IMPRESSION: No acute fracture or subluxation in flexion or extension identified. Dictated by Tyler Newman MD (Resident). Dr. SUKH Ramos MD have personally reviewed and interpreted thisexamination/study. This report was electronically signed by SUKH RHODES MD on 09/28/201610:39 PM . Toan Simon DO DIAGNOSTIC IMAGING ORDERABLES Care Teams Palliative Care Nurse Relationship Specialty Start Date End Date Matt Barnes MD PCP - General 09/16/17
--- NOTE | 2024-04-23 21:53 | ECG_ITS ---
Test Date: 2024-04-23 21:58:36 Measurements Intervals [place] Rate: 70 P: 60 HI: 327 QRS: 0 QRSD: 92 T: 22 QT: 392 QTc: 424 Interpretive Statements SINUS RHYTHM WITH FIRST DEGREE AV BLOCK DELAYED PRECORDIAL R/S TRANSITION VOLTAGE CRITERIA FOR LVH NONSPECIFIC T-WAVE ABNORMALITY- ANTEROLAT/INF LEADS BASELINE ARTIFACT- I, II, III, AVR, AVL, AVF, V1-V2 BORDERLINE ECG No previous ECG available for comparison Electronically Signed On 04-24-2024 06:38:51 [employer] CLERK by Wilbur Hester D.O.
[2024-04-23 21:58] VITALS: BP 147/70; PULSE 68; RESP 15; TEMP 36.6; O2SAT 100
[2024-04-23 22:14] LABS: Basophils Percent Auto 0.3 % (0.2-1.2); Eosinophils Absolute Auto 0.2 K/mm3 (0-0.3); Eosinophils Percent Auto 1.8 % (0-4.4); Hematocrit 39.4 % (37.0-47.0); Immature Granulocyte Absolute 0.04 K/mm3 (0.00-0.031); Immature Granulocyte Percent A 0.3 % (0-0.5); Lymphocytes Absolute Auto 4.51 K/mm3 (0.9-3.2); Lymphocytes Percent Auto 38.4 % (18.3-44.2); Mean Corpuscular Hemoglobin 27.7 pg (26-34); Mean Corpuscular Volume 83.8 fl (80-100); Mean Platelet Volume 10.6 fl (7.4-10.4); Monocytes Absolute Auto 0.7 K/mm3 (0.1-0.6); Neutrophils Absolute Auto 6.3 K/mm3 (1.3-6.7); Neutrophils Percent Auto 53.2 % (45.5-73.1); Platelet Count Result 345 k/mm3 (150-375); Red Cell Distribution Width 14.6 % (11.5-14.5); White Blood Count 11.8 K/mm3 (4.5-10.0)
[2024-04-23 22:25] LABS: INR 1.4; Prothrombin Time 17.7 Seconds (11.1-14.7)
[2024-04-23 22:34] LABS: Alanine Aminotransferase 15 U/L (6-35); Albumin Level 3.9 g/dL (3.5-5.1); Alkaline Phosphatase 87 U/L (38-126); Anion Gap 10 mmol/L (4-12); Aspartate Amino Transferase 20 U/L (14-36); Bilirubin,Total 0.4 mg/dL (0.2-1.3); Blood Urea Nitrogen 17 mg/dL (7-17); Carbon Dioxide 26 mmol/L (22-30); Chloride 100 mmol/L (98-107); Estimated CRCL calculation 89 ml/min; Estimated Glomerular Filt Rate > 60; Glucose 257 mg/dL (65-110); Lipase 59 U/L (23-300); Potassium 3.9 mmol/L (3.4-5.0); Sodium 136 mmol/L (137-145)
[2024-04-23 22:45] LABS: Troponin I < 0.012 ng/mL (0.000-0.034)
[2024-04-23 22:51] LABS: Influenza A QL RT-PCR Negative (Negative); Influenza B QL RT-PCR Negative (Negative); RSV RNA, RT-PCR Positive (Negative); SARS-CoV-2 RNA PCR Negative (Negative)
[2024-04-24 01:53] VITALS: BP 145/69; PULSE 71; RESP 21; O2SAT 100
[2024-04-24 02:16] VITALS: BP 133/78; PULSE 74; RESP 15; O2SAT 100
[2024-04-24] MEDS: IPRATROPIUM 0.5 MG/ALBUTEROL SULFATE 2.5 MG AMPUL.NEB 3 ML 12 ML INHALATION (02:20)
--- OUTSIDE RECORDS SUMMARY | 2024-04-24 02:24 | XMS_ITS | Patient Health Summary ---
Author Organization [facility] Address [address] [place] [address] Care Team Providers Care Oracle Ebs Consultant Name Role Phone Matt Barnes MD Primary Care Provider + [phone] Note from [facility],non-owned Affiliates and Associated Physician Practices is amultiple site organization consisting of ambulatory clinics and hospital sitesin [place], [place], [place] and [place]. This disclosure is being madepursuant to the Care Everywhere program and may not contain all information available regarding this patient. Last updated 17.[facility] Allergies * Shellfish Allergy(Anaphylaxis) -High Criticality Medications [...] Comments Blood Pressure 137/74 04/28/2019 3:09 AM AUTHOR'S AGENT Pulse 82 04/28/2019 3:09 AM AUTHOR'S AGENT Temperature 36.4 C (97.6 F) 04/28/2019 3:09 AM AUTHOR'S AGENT Respiratory Rate 18 04/28/2019 3:09 AM AUTHOR'S AGENT Oxygen Saturation 99% 04/28/2019 3:09 AM AUTHOR'S AGENT Inhaled Oxygen Concentration - - Weight 123.8 kg (273 lb) 04/13/2019 10:57 AM AUTHOR'S AGENT Height 157.5 cm (5' 2 ) 04/13/2019 10:57 AM AUTHOR'S AGENT Body Mass Index 49.93 04/13/2019 10:57 AM AUTHOR'S AGENT Procedures * CT NECK SOFT TISSUE W [...] TISSUE NECK WITH CONTRAST (04/28/2019 1:45 AM AUTHOR'S AGENT) Anatomical Region Laterality Modality Head Computed Tomogra phy 04/28/2019 9:37 AM AUTHOR'S AGENT Impressions 04/28/2019 10:42 AM AUTHOR'S AGENT Negative for mass or adenopathy. Edited by Mera Fortune on 04/28/2019 9:47 AM Reading Radiologist: Lemuel Lane MD on 04/28/2019 at 10:42 AM Narrative 04/28/2019 10:[address] NECK FOR SOFT TISSUES HISTORY: Neck [...] CBC W AUTO DIFFERENTIAL (04/28/2019 12:48 AM AUTHOR'S AGENT) Only the most recent of6 resultswithin the time period is included. WBC 11.0(H) 4.4 - 10.7 x10E9/L 04/28/2019 1:00 AM [facility] WBC Corrected 04/28/2019 1:00 AM [facility] RBC 5.05 3.80 - 5.20 x10E12/L 04/28/2019 1:00 AM [facility] Hemoglobin 13.9 12.0 - 15.6 gm/dL 04/28/2019 1:00 AM [facility] Hematocrit 43.5 35.9 - 45.5 % 04/28/2019 1:00 AM [facility] MCV 86.1 80.7 - 98.3 fl 04/28/2019 1:00 AM [facility] MCH 27.5 26.7 - 34.0 pg 04/28/2019 1:00 AM [facility] MCHC 32.0 30.8 - 35.9 gm/dL 04/28/2019 1:00 AM [facility] Platelet Count 314 153 - 416 x10E9/L 04/28/2019 1:00 AM [facility] RDW-CV 13.6 12.1 - 14.9 % 04/28/2019 1:00 AM [facility] MPV 10.8 9.4 - 12.9 fl 04/28/2019 1:00 AM [facility] Neutrophils % 60.1 44.0 - 73.0 % 04/28/2019 1:00 AM [facility] Lymphocytes % 30.9 20.0 - 43.0 % 04/28/2019 1:00 AM [facility] Monocytes % 7.2 5.0 - 13.0 % 04/28/2019 1:00 AM [facility] Eosinophils % 1.4 0.0 - 6.0 % 04/28/2019 1:00 AM [facility] Basophils % 0.2 0.0 - 2.0 % 04/28/2019 1:00 AM [facility] Immature Granulocytes 0.2 0 - 1 % 04/28/2019 1:00 AM [facility] Neutrophil Absolute 6.64 2.01 - 7.14 x10E9/L 04/28/2019 1:00 AM [facility] Lymphocytes Absolute 3.41 1.07 - 3.94 x10E9/L 04/28/2019 1:00 AM [facility] Monocytes Absolute 0.79 0.26 - 1.07 x10E9/L 04/28/2019 1:00 AM [facility] Eosinophils Absolute 0.16 0 - 0.47 x10E9/L 04/28/2019 1:00 AM [facility] Basophils Absolute 0.02 0 - 0.08 x10E9/L 04/28/2019 1:00 AM [facility] Immature Granulocytes Absolute 0.02 0.00 - 0.06 x10E9/L 04/28/2019 1:00 AM [facility] nRBC Auto 0 /100 WBC 04/28/2019 1:00 AM [facility] Blood BLOOD SPECIMEN / Unknown Venipuncture / Unknown 04/28/2019 12:48 AM AUTHOR'S AGENT 04/28/2019 12:58 AM [facility] Del Price PA-C LAB - HEMATOLOGY OR DERABLES [facility] [address] [place] [address] * (ABNORMAL) BASIC METABOLIC PANEL (CALCIUM TOTAL) (04/28/2019 12:48 AM AUTHOR'S AGENT) Only the most recent of2 resultswithin the time period is included. [facility] Glucose 397(H) 70 - 105 mg/dL 04/28/2019 1:12 AM [facility] Sodium 137 136 - 145 mmol/L 04/28/2019 1:12 AM [facility] Potassium 3.9 3.5 - 5.1 mmol/L 04/28/2019 1:12 AM [facility] Chloride 102 98 - 107 mmol/L 04/28/2019 1:12 AM [facility] CO2 24 23 - 31 mmol/L 04/28/2019 1:12 AM [facility] Calcium 9.4 8.4 - 10.4 mg/dL 04/28/2019 1:12 AM [facility] Anion Gap 11 8 - 16 mmol/L 04/28/2019 1:12 AM [facility] BUN 9 7 - 18.7 mg/dL 04/28/2019 1:12 AM [facility] Creatinine 0.92 0.57 - 1.11 mg/dL 04/28/2019 1:12 AM [facility] eGFR by MDRD >60 >60 mL/min/1.7 3m2 04/28/2019 1:12 AM [facility] eGFR by MDRD >60 >60 mL/min/1.7 3m2 04/28/2019 1:12 AM [facility] Blood BLOOD SPECIMEN / Unknown Venipuncture / Unknown 04/28/2019 12:48 AM AUTHOR'S AGENT 04/28/2019 12:58 AM [facility] Del Price PA-C LAB - CHEMISTRY ORD ERABLES [facility] [address], [place] [id number] * CARDIAC RHYTHM STRIP ORDER (09/13/2017 5:42 PM CDT) Narrative 09/13/2017 5:42 PM CDT Ordered by an unspecified provider. Scanned Document CARDIAC SERVICES ORD ERABLES * (ABNORMAL) GLUCOSE - POINT OF CARE (09/10/2017 1:24 PM CDT) Only the most recent of2 resultswithin the time period is included. [facility] Glucose WB/POC 212(H) 70 - 106 mg/dL 09/10/2017 2:50 PM CDT [facility] Blood BLOOD SPECIMEN / Unknown 09/10/2017 1:24 PM CDT 09/10/2017 2:50 PM CDT Ángel Sethi MD LAB - POINT OF CARE ORDERABLES [facility] [address] [place] [address] * GROSS + MICRO EXAM (STL) (09/10/2017 12:46 PM CDT) Case Report Surgical Pathology Report Case: [id number] Authorizing Provider: Ángel Sethi MD Collected: 09/10/2017 12:46 PM Ordering Location: [facility] Received: 09/10/2017 01:53 PM Pathologist: Basil Bullock MD Specimens: A) - Endocervix Curettings B) - Endometrium Curettings C) - Cervix Conization, CONE BYPOSY 09/11/2017 3:07 PM CDT [facility] Final Diagnosis 1. Endocervix curettings (A): [...] squamous mucosa ED/GC/leann 09/11/2017 3:07 PM CDT [facility] Clinical History The patient is a 47 year old, G 5,P3,Ab 2 woman who presented with a history of AUB with a known history of multiple myoma. Recent PAP smear showed HGSIL, cannot rule out carcinoma. 09/11/2017 3:07 PM CDT [facility] Gross Description The specimen is received [...] to 12 o'clock ED/na 09/11/2017 3:07 PM [facility] Microscopic Description Microscopic examination of specimens A and B demonstrate primarily a background of blood and fibrin. Specimen B also demonstrates strips of endocervical glands and stroma. There is no evidence of dysplasia. Due to the lack of endometrial glands present, cannot further comment on endometrium. Specimen C demonstrates benign squamous mucosa with no evidence of dysplasia. ED/GC/leann 09/11/2017 3:07 PM [facility] Disclaimer All histochemical and/or immunohistochemical results are interpreted with controls that demonstrate appropriate staining reactions before reporting results. Note on use of immunocytochemistry reagents: This test was developed and its performance characteristic determined by [facility], Department of Laboratory Medicine. It has not been cleared or approved by the U.S. Food and Drug Administration (FDA). The FDA has determined that such clearance or approval is not necessary. The test is used for clinical purpose. It should not be regarded as investigational or for research. This laboratory is certified to perform high complexity testing. 09/11/2017 3:07 PM [facility] Embedded Images 09/11/2017 3:07 PM [facility] Pathology/Cytology CURETTINGS / Unknown 09/10/2017 12:46 PM CDT 09/10/2017 1:53 PM T Miscellaneous samples (specimen) SPECIMEN FROM ENDOMETRIUM OBTAINED BY CURETTAGE / Unknown 09/10/2017 12:55 PM CDT 09/10/2017 1:53 PM CDT Miscellaneous samples (specimen) SPECIMEN FROM LESION OF UTERINE CERVIX OBTAINED BY CONE BIOPSY / Unknown 09/10/2017 12:55 PM CDT 09/10/2017 1:53 PM CDT Ángel Sethi MD LAB - PATHOLOGY/CYTO LOGY ORDERABLES [facility] [address] [place], [place] [id number] * (ABNORMAL) URINALYSIS REFLEX TO MICROSCOPIC NO CULTURE (09/10/2017 10:21 AM CDT) Only the most recent of2 resultswithin the time period is included. Color UA Yellow Straw, Yellow 09/10/2017 10:32 AM T [facility] Clarity UA Slt Cloudy(A) Clear 09/10/2017 10:32 AM [facility] Glucose UA 1+(A) Negative 09/10/2017 10:32 AM T [facility] Bilirubin UA Negative Negative 09/10/2017 10:32 AM T [facility] Ketone UA Negative Negative 09/10/2017 10:32 AM T [facility] Specific [place] UA 1.021 1.005 - 1.030 09/10/2017 10:32 AM T [facility] Blood UA Negative Negative 09/10/2017 10:32 AM [facility] pH UA 5.0 5.0 - 8.0 pH 09/10/2017 10:32 AM [facility] Protein UA Negative Negative 09/10/2017 10:32 AM T [facility] Urobilinogen UA Negative Negative mg/dL 09/10/2017 10:32 AM [facility] Nitrite UA Negative Negative 09/10/2017 10:32 AM [facility] Leukocyte UA Negative Negative 09/10/2017 10:32 AM [facility] Urine Microscopy Urine microscopy not indicated 09/10/2017 10:32 AM [facility] Urine URINE SPECIMEN OBTAINED BY CLEAN CATCH PROCEDURE / Unknown Collection / Unknown 09/10/2017 10:21 AM CDT 09/10/2017 10:23 AM CDT Narrative [facility] - 09/10/2017 10:32 AM CDT Ángel Sethi MD LAB - URINALYSIS ORD ERABLES [facility] [address] [place] [address] * (ABNORMAL) COMPREHENSIVE METABOLIC PANEL (09/10/2017 10:13 AM CDT) Only the most recent of3 resultswithin the time period is included. [facility] Signature Glucose 232(H) 74 - 106 mg/dL 09/10/2017 10:43 AM CDT [facility] Sodium 137 136 - 145 mmol/L 09/10/2017 10:43 AM CDT [facility] Potassium 3.8 3.5 - 5.1 mmol/L 09/10/2017 10:43 AM CDT [facility] Chloride 103 98 - 107 mmol/L 09/10/2017 10:43 AM CDT [facility] CO2 29 22 - 31 mmol/L 09/10/2017 10:43 AM CDT [facility] Calcium 8.8 8.5 - 10.1 mg/dL 09/10/2017 10:43 AM CDT [facility] Anion Gap 5(L) 8 - 16 mmol/L 09/10/2017 10:43 AM CDT [facility] BUN 8 7 - 21 mg/dL 09/10/2017 10:43 AM CDT [facility] Creatinine 0.62 0.50 - 1.30 mg/dL 09/10/2017 10:43 AM CDT [facility] Alkaline Phosphatase 80 38 - 126 U/L 09/10/2017 10:43 AM CDT [facility] ALT 12(L) 13 - 61 U/L 09/10/2017 10:43 AM CDT [facility] AST 15 5 - 40 U/L 09/10/2017 10:43 AM CDT [facility] Protein Total 7.1 6.4 - 8.2 gm/dL 09/10/2017 10:43 AM CDT [facility] Albumin 3.0(L) 3.4 - 5.0 gm/dL 09/10/2017 10:43 AM CDT [facility] Bilirubin Total 0.5 0.2 - 1.0 mg/dL 09/10/2017 10:43 AM [facility] eGFR by MDRD >60 >60 mL/min/1.7 3m2 09/10/2017 10:43 AM CDT [facility] eGFR by MDRD >60 >60 mL/min/1.7 3m2 09/10/2017 10:43 AM CDT [facility] Blood BLOOD SPECIMEN / Unknown Venipuncture / Unknown 09/10/2017 10:13 AM CDT 09/10/2017 10:13 AM CDT Ángel Sethi MD LAB - CHEMISTRY ORDE RABTRICIA Performing Organization Address City/[facility]/ZIP Co de Phone Number [facility] [address] [place] [phone] * HCG URINE QUALITATIVE - POCT (IP) INTERFACED (09/10/2017 10:10 AM CDT) Only the most recent of2 resultswithin the time period is included. HCG Qual Urine Negative Negative 09/10/2017 11:30 AM CDT [facility] Urine URINE / Unknown 09/10/2017 1 0:10 AM CDT 09/10/2017 11:30 AM CDT Ángel Sethi MD LAB - POINT OF CARE ORDERABLES Performing Organization Address [facility] Co de Phone Number [facility] [address] [place] [phone] * HCG URINE QUAL POCT NOTIFICATION (09/10/2017 9:17 AM CDT) Comment Notification Label Only - See Separate Report 09/10/2017 11:00 AM CDT [facility] Urine URINE / Unknown 09/10/2017 9 :17 AM CDT 09/10/2017 9:17 AM CDT Yusuf Lyle DO LAB - URINALYSIS ORD ERABLES Performing Organization Address [facility] Co de Phone Number [facility] [address] [place] [phone] * PT-INR [facility] (06/13/2017 10:05 AM CDT) Only the most recent of2 resultswithin the time period is included. PT 14.4 12.1 - 14.8 Seconds [facility] INR 1.1 See Comment [facility] Comment: Suggested therapeutic range for low-intensity coumadin therapy for venous thromboembolism prophylaxis is an INR of 2.0-3.0. For high risk patients (Mitral Valve Prosthesis, Atrial Fibrillation, history of TIA/stroke), suggested prophylactic therapeutic range is an INR of 2.5-3.5. Blood specimen (specimen) BLOOD SPECIMEN / Unknown 06/13/2017 10:05 AM CDT 06/13/2017 10:26 AM CDT Narrative [facility] - 06/13/2017 10:41 AM CDT Is patient on Heparin, Argatroban or Dabigatran?->N Osman Shore MD LAB - COAGULATIO N ORDERABLES Performing Organization Address City/State/[facility] Co de Phone Number [address] [phone] * XR ANKLE LEFT 3VW OR MORE (10/14/2016 10:26 PM CDT) Anatomical Region Laterality Modality Lower Extremity Other Impressions 10/15/2016 9:12 AM CDT IMPRESSION: No acute fracture or dislocation identified. Dictated by yTler Newman MD (ceo and president). I, Dr. OSMAN JOSHI M.D. have personally [...] dislocation identified. Dictated by Tyler Newman MD (ceo and president). Dr. OSMAN Ramos M.D. have personally reviewed [...] dislocation identified. Dictated by Tyler Newman MD (ceo and president). Dr. OSMAN Ramso M.D. have personally reviewed and interpreted this [...] dislocation identified. Dictated by Tyler Newman MD (ceo and president). IDr. OSMAN M.D. have personally reviewed and interpreted thisexamination/study. This report was electronically signed by OSMAN OJSHI M.D. on 10/15/20169:12 AM . Yovani Oseguera MD DIAGNOSTIC IMAGING O RDERABLES * XR KNEE LEFT 3VW (10/14/2016 10:25 PM CDT) Anatomical Region Laterality Modality Lower Extremity Other Impressions 10/15/2016 9:12 AM CDT IMPRESSION: No acute fracture or dislocation identified. Dictated by Tyler Newman MD (ceo and president). Dr. OSMAN Ramos M.D. have personally reviewed [...] dislocation identified. Dictated by Tyler Newman MD (ceo and president). Dr. OSMAN Ramos M.D. have personally reviewed and interpreted thisexamination/study. This report was electronically signed by OSMAN JOSHI M.D. on 10/15/20169:12 AM . Yovani Oseguera MD DIAGNOSTIC IMAGING O RDERABLES * DRUG ABUSE PANEL 10-20+ETHANOL URINE NO CONFIRM (10/14/2016 8:25 PM CDT) Amphetamines Screen Urine Negative Negative: < 1000 ng/mL [facility] Barbiturates Screen Urine Negative Negative: < 200 ng/mL [facility] Benzodiazepine Screen Urine Negative Negative: < 200 ng/mL [facility] Opiates Urine Negative Negative: < 300 ng/mL [facility] Cocaine Metabolites Urine Negative Negative: < 300 ng/mL [facility] Phencyclidine Screen Urine Negative Negative: < 25 ng/ml [facility] Cannabinoids Screen Urine Negative Negative: <50 ng/mL [facility] Methadone Screen Urine Negative Negative: < 300 ng/mL [facility] Urine specimen (specimen) 10/14/2016 8:25 PM CDT 10/14/2016 8:25 PM CDT Narrative [facility] - 10/14/2016 8:59 PM CDT The Urine Toxicology Screening Panel does not screen for Propoxyphene, Meprobamate, Carisoprodol, Trazodone, pfsp-rhd-kkewqjr medications and/or volatiles (Acetone, Isopropanol, Methanol or Ethylene Glycol). Ethanol, Salicylate, Acetaminophen, Tricyclic Antidepressants and several therapeutic drugs may be individually assayed in serum or plasma specimen. Toxicology testing by the [facility] is an aid to medical diagnosis and treatment of patients. No documented chain of custody was maintained. Results are intended to be used for clinical purposes only. Yovani Oseguera MD LAB - URINE CHEMISTR Y ORDERABLES [facility] [address] [place] [address] * CT CHEST ABDOMEN PELVIS W CONT [...] 8:42 PM. Dictated by Daniel Palomo MD (ceo and president). I, Dr. OSMAN JOSHI M.D. have personally [...] 8:42 PM. Dictated by Daniel Palomo MD (ceo and president). Dr. OSMAN Ramos M.D. have personally reviewed and interpreted thisexamination/study. This report was electronically signed by OSMAN JOSIH M.D. on 10/15/20167:04 AM . Yovani Oseguera [...] dislocation identified. Dictated by Tyler Newman MD (ceo and president). Dr. OSMAN Ramos M.D. have personally reviewed [...] dislocation identified. Dictated by Tyler Newman MD (ceo and president). Dr. OSMAN Ramos M.D. have personally reviewed [...] fracture identified. Dictated by Tyler Newman MD (ceo and president). Dr. OSMAN Ramos M.D. have personally reviewed [...] fracture identified. Dictated by Tyler Newman MD (ceo and president). I, Dr. OSMAN JOSHI M.D. have personally reviewed and interpreted thisexamination/study. This report was electronically signed by OSMAN JOSHI M.D. on 10/15/20168:42 AM . Yovani Oseguera MD DIAGNOSTIC IMAGING O RDERABLES * ALCOHOL ETHYL BLOOD (10/14/2016 6:34 PM CDT) Pathologist [facility] Interpretation Ethanol None Detected None Detected mg/dL [facility] Comment:Ethanol levels less than 10 mg/dL are resulted as None detected . Blood specimen (specimen) BLOOD SPECIMEN / Unknown 10/14/2016 6:34 PM CDT 10/14/2016 6:36 PM CDT Yovani Oseguera MD LAB - CHEMISTRY [facility] Organization Address City/State/ZIP Co de Phone Number [address] [phone] * TYPE + SCREEN PANEL (10/14/2016 6:34 PM CDT) Typem A POS [facility] Antibody Screen NEG [facility] Blood specimen (specimen) 10/14/2016 6:34 PM CDT 10/14/2016 7:14 PM CDT Yovani Oseguera MD LAB - BLOOD BANK ORD ERABLES [facility] [address] [place], [place] [address] * CT CERVICAL POST MYELOGRAM (10/04/2016 10:23 [...] The patient was then transferred to the child care center administrator unit for further observation and at least [...] The patient was then transferred to the child care center administrator unit for further observation and at least [...] stenosis. This report was approved by Aldair Jay on 10/04/2016 12:15 PM . I, Dr. LAVELLE TAYLOR M.D. have personally reviewed and interpreted thisexamination/study. This report was electronically signed by LAVELLE TAYLOR M.D. on 10/04/201612:48 PM . Toan Simon DO FLUOROSCOPY ORDERA BLES * (ABNORMAL) GLUCOSE ACCUCHECK (10/04/2016 8:48 AM CDT) Glucose, Fingerstick 210(H) 70-115mg/d L mg/dL [facility]) Comment:Statement Clerk: GISELE VENEGAS 10/04/2016 8:48 AM CDT Narrative [facility]) - 10/04/2016 8:48 AM CDT Ordered by Alfred Joya [id number] Historical Provider MD LAB - CHEMISTRY O [...] Simon DO DIAGNOSTIC IMAGING ORDERABLES Care Teams Oracle Ebs Consultant Relationship Specialty Start Date End Date Matt Barnes MD PCP - General 09/16/17
--- OUTSIDE RECORDS SUMMARY | 2024-04-24 02:24 | XMS_ITS | Clinical Summary ---
Author Organization [facility] Address [address] [place] [address] Care Team Providers Care Service Line Bus Cleaner Name Role Phone Matt Barnes MD Primary Care Provider + [phone] Source Comments [facility],non-owned Affiliates and Associated Physician Practices is amultiple site organization consisting of ambulatory clinics and hospital sitesin [place], [place], [place] and [place]. This disclosure is being madepursuant to the Care Everywhere program and may not contain all information available regarding this patient. Last updated 17.[facility] Allergies Active Allergy Reactions Criticality Noted Date [...] Comments Blood Pressure 137/74 04/28/2019 3:09 AM AUTO CLEANER Pulse 82 04/28/2019 3:09 AM AUTO CLEANER Temperature 36.4 C (97.6 F) 04/28/2019 3:09 AM AUTO CLEANER Respiratory Rate 18 04/28/2019 3:09 AM AUTO CLEANER Oxygen Saturation 99% 04/28/2019 3:09 AM AUTO CLEANER Inhaled Oxygen Concentration - - Weight 123.8 kg (273 lb) 04/13/2019 10:57 AM AUTO CLEANER Height 157.5 cm (5' 2 ) 04/13/2019 10:57 AM AUTO CLEANER Body Mass Index 49.93 04/13/2019 10:57 AM AUTO CLEANER Plan of Treatment Health Maintenance Due Date [...] PANEL (CALCIUM TOTAL) STAT 04/28/2019 12:48 AM AUTO CLEANER from Last 3 Months or Most Recently Relevant to Health Maintenance Results * (ABNORMAL) BASIC METABOLIC PANEL (CALCIUM TOTAL) (04/28/2019 12:48 AM AUTO CLEANER) Glucose 397(H) 70 - 105 mg/dL 04/28/2019 1:12 AM AUTO CLEANER [facility] Sodium 137 136 - 145 mmol/L 04/28/2019 1:12 AM AUTO CLEANER [facility] Potassium 3.9 3.5 - 5.1 [...] Unknown Venipuncture / Unknown 04/28/2019 12:48 AM AUTO CLEANER 04/28/2019 12:58 AM AUTO CLEANER Del Price PA-C LAB - CHEMISTRY ORD ERABLES [facility] [address] [place] [address] from Last 3 Months or Most Recently Relevant to Health Maintenance Care Teams Service Line Bus Cleaner Relationship Specialty Start Date End Date Matt Barnes MD PCP - General 09/16/17
--- OUTSIDE RECORDS SUMMARY | 2024-04-24 02:24 | XMS_ITS | Referral Summary ---
Author Organization [facility] Address [address] [place] [address] Care Team Providers Care Workers Compensation Examiner Name Role Phone Matt Barnes MD Primary Care Provider [phone] Source Comments [facility],non-owned Affiliates and Associated Physician Practices is amultiple site organization consisting of ambulatory clinics and hospital sitesin [place], [place], [place] and [place]. This disclosure is being madepursuant to the Care Everywhere program and may not contain all information available regarding this patient. Last updated 17.[facility] Allergies Active Allergy Reactions Criticality Noted Date [...] Comments Blood Pressure 137/74 04/28/2019 3:09 AM CLAIM SERVICE REPRESENTATIVE Pulse 82 04/28/2019 3:09 AM CLAIM SERVICE REPRESENTATIVE Temperature 36.4 C (97.6 F) 04/28/2019 3:09 AM CLAIM SERVICE REPRESENTATIVE Respiratory Rate 18 04/28/2019 3:09 AM CLAIM SERVICE REPRESENTATIVE Oxygen Saturation 99% 04/28/2019 3:09 AM CLAIM SERVICE REPRESENTATIVE Inhaled Oxygen Concentration - - Weight 123.8 kg (273 lb) 04/13/2019 10:57 AM CLAIM SERVICE REPRESENTATIVE Height 157.5 cm (5' 2 ) 04/13/2019 10:57 AM CLAIM SERVICE REPRESENTATIVE Body Mass Index 49.93 04/13/2019 10:57 AM CLAIM SERVICE REPRESENTATIVE Plan of Treatment Not on file Procedures Procedure Name Priority Date/Time Associated Diagnosis Comments BASIC METABOLIC PANEL (CALCIUM TOTAL) STAT 04/28/2019 12:48 AM CLAIM SERVICE REPRESENTATIVE from Last 3 Months or Most Recently Relevant to Health Maintenance Results * (ABNORMAL) BASIC METABOLIC PANEL (CALCIUM TOTAL) (04/28/2019 12:48 AM CLAIM SERVICE REPRESENTATIVE) Glucose 397(H) 70 - 105 mg/dL 04/28/2019 1:12 AM [facility] Sodium 137 136 - 145 mmol/L 04/28/2019 1:12 AM [facility] Potassium 3.9 3.5 - 5.1 mmol/L 04/28/2019 1:12 AM [facility] Chloride 102 98 - 107 mmol/L 04/28/2019 1:12 AM [facility] CO2 24 23 - 31 mmol/L 04/28/2019 1:12 AM [facility] Calcium 9.4 8.4 - 10.4 mg/dL 04/28/2019 1:12 AM [facility] Anion Gap 11 8 - 16 mmol/L 04/28/2019 1:12 AM [facility] BUN 9 7 - 18.7 mg/dL 04/28/2019 1:12 AM [facility] Creatinine 0.92 0.57 - 1.11 mg/dL 04/28/2019 1:12 AM [facility] eGFR by MDRD >60 >60 mL/min/1.7 3m2 04/28/2019 1:12 AM [facility] eGFR by MDRD >60 >60 mL/min/1.7 3m2 04/28/2019 1:12 AM [facility] Blood BLOOD SPECIMEN / Unknown Venipuncture / Unknown 04/28/2019 12:48 AM CLAIM SERVICE REPRESENTATIVE 04/28/2019 12:58 AM CLAIM SERVICE REPRESENTATIVE Del Price PA-C LAB - CHEMISTRY ORD ERABLES [facility] [address] [place], [place] [id number] from Last 3 Months or Most Recently Relevant to Health Maintenance Care Teams Workers Compensation Examiner Relationship Specialty Start Date End Date Matt Barnes MD PCP - General 09/16/17
--- OUTSIDE RECORDS SUMMARY | 2024-04-24 02:25 | XMS_ITS | Clinical Summary ---
Author Organization [facility] Address [address] [place] [address] Care Team Providers Care Transformer Repairer Name Role Phone Sabina Riggs MD Unavailable Elizabeth Pollard MD Primary Care Provider [phone] Allergies Active Allergy Reactions Criticality Noted Date [...] UTD 9 019 Active vitamin D2, ergocalciferol, 74063 UNITS capsule Take 50,000 Units by mouth [...] this topic Medical Devices Implanted Type Area Duralumin Metalworker Device Identifier Shelf Expiration Date Model / Serial / Lot Atrial Lead-12/18/2012 Implanted:12/18 (Quantity not on file) Lead Implant [employer] DIV [employer] 1998 / [id number] / Description:Dr Giovanni Hassan Ventricular Lead-12/18/2012 Implanted:12/18 (Quantity not on file) Lead Implant [employer] - DIV [employer] 2088TC / [id number] / Description:Dr Giovanni Hassan [employer] Pacemaker-2012 Implanted:12/18 (Quantity not on file) Pacemaker [employer] - DIV [employer] 2209 / [id number] / Description:Dr Giovanni Hassan Insurance [employer] Advance Directives Documents on File Type Date Recorded Patient Molding Line Assistant Expl anation Advance Directives and Vincenzo g Will 06/30/2015 POWER OF LEAD ASSEMBLER Care Teams Transformer Repairer Relationship Specialty Start Date End Date Elizabeth Pollard MD [address] [address] PCP - General INTERNAL MEDICINE 07/12/20 Sabina Riggs MD [address] [address] EP Electroplating Technician CARDIOVASCULAR DISEASE 08/17/15
--- OUTSIDE RECORDS SUMMARY | 2024-04-24 02:25 | XMS_ITS | Continuity of Care Document ---
Author Organization [facility] Address [address] [facility] [place] [address] Phone Care Team Providers Care Traffic Line Painter Name Role Phone Cezar Terrell MD Unavailable [...] Diagnoses Date Provider Providers Copied on Encounter [facility], [address] [place], [place], [id number], tel:[phone] [facility] No Information 3 Xander Robb. [address] [facility] [place], [place], [id number] , [place]. tel:[phone] Referring Provider: Cezar Terrell, [address] [facility] [place], [place], [place], [id number]. tel:[phone] OFFICE/OUTPA TIENT VISIT, EST [facility], [address], [place], [address], tel:[phone] [facility] chronic pain (chief complaint) Dietary surveillance and counselingCHRON IC PAIN NEC 3 Xander Robb. [address] [place], [place], [address] , . tel:[phone] Referring Provider: Edwin Randolph [place], [place], [id number]. tel:[phone] OFFICE/OUTPA TIENT VISIT, EST [facility], [address] [place], [place], [id number], tel:[phone] [facility] hyperglycemia (chief complaint)gemologist sai pain (chief complaint)anxi ety (chief complaint) Dietary surveillance and counselingCHRON IC PAIN NECHyperglycemi aOther and unspecified hyperlipidemiaG eneralized anxiety disorder 3 Xander Barnes [address] [place], [place], [address] , . tel:[phone] Referring Provider: Edwin Randolph [place], [place], [id number]. tel:[phone] PREV VISIT, NEW, AGE 40-64 [facility], [facility] [place], [id number], tel:[phone] [facility] Physical (chief complaint) Dietary surveillance and counselingRouti ne Medical ExamRoutine Medical Exam 3 Xander Barnes [address] [place], [address] , [place]. tel:[phone] Family History Family Member Type Diagnosis Age At Onset Father Problem (finding) Hypertension Sister Problem (finding) Stroke Father Problem (finding) Hyperlipidemia Father Problem (finding) Diabetes mellitus Father Problem (finding) Coronary artery disease Payers Payer name Insurance type Covered republican ID Authoriza tion(s) No Information Social History [...] Information Instructions Date Instruction Additional Infor nabeel Dietary counseling Related to Di etary surveillance counseling Decrease caloric intake Related to Dietary surveillance counseling Dietary counseling Related to Di etary surveillance counseling Decrease caloric intake Related to Dietary surveillance counseling Dietary counseling Related to Di etary surveillance counseling Decrease caloric intake Related to Dietary surveillance counseling Assessments Type Assessment Date No Information
--- OUTSIDE RECORDS SUMMARY | 2024-04-24 02:25 | XMS_ITS | Clinical Summary ---
Author Organization [facility] Address [address] [place] [address] Care Team Providers Care Inspector And Hand Packager Name Role Phone Elizabeth Pollard MD Primary Care Provider [phone] Allergies Active Allergy Reactions Criticality Noted Date Comments Empagliflozin Hives Medium 10/21/2020 Shellfish Anaphylaxis High 10/04/2016 Diffuse swelling and to tongue. Medications alcohol swabs pads, medicatedIndicati ons:Type 2 diabetes mellitus without complication, with long-term current use of insulin ([facility]) ([facility]) Use to swabs daily to clean area 200 each 5 1 Active blood-glucose meter miscIndications:T ype 2 diabetes mellitus without complication, with long-term current use of insulin ([facility]) ([facility]) Test blood glucose twice a day 1 [...] ons:Type 2 diabetes mellitus with peripheral neuropathy ([facility]) Inject 38 Units under the skin 2 [...] complication, with long-term current use of insulin ([facility]) ([facility]) Use two lancet daily to check blood [...] and low-salt diet and followed by the supervisor plasma Bradycardia 09/28/2021 Overview (09/28/2021): Added automatically from request for surgery [id number] Chronic pain of left thumb 01/19/2021 Assessment [...] (04/22/2020): Added automatically from request for surgery [id number] Fibroids 04/22/2020 Overview (04/22/2020): Added automatically from request for surgery [id number] Foot callus 04/06/2020 Assessment & Plan (04/06/2020 8:37 AM INSPECTOR HAIRSPRING): Patient has small callus in the plantar aspect of left foot. It was treated with liquid nitrogen. She will call back in 1 week if it is not resolved. We will make a referral to see a c software developer Oligomenorrhea 03/28/2020 Overview (03/28/2020): Patient with 2-3 [...] asymptomatic. Continue current medications. Followed by the supervisor plasma Assessment & Plan (01/19/2021 8:59 AM CDT): Asymptomatic. Continue current medications. Follow up with the supervisor plasma Assessment & Plan (10/19/2020 9:12 AM CDT): Patient is asymptomatic and followed by the supervisor plasma Assessment & Plan (07/19/2020 9:22 AM CDT): Managed by the supervisor plasma Assessment & Plan (04/06/2020 8:08 AM INSPECTOR HAIRSPRING): Managed by the supervisor plasma Atypical chest pain 03/21/2020 Femoroacetabular impingement of left hip 021 Insect stings 03/21/2020 Pain of lower extremity 03/21/2020 Presence of permanent cardiac pacemaker 03/21/19 Sick sinus syndrome ([facility]) 03/21/2020 Assessment & Plan (07/10/2021 8:47 AM CDT): Status post pacemaker placement Assessment & Plan (01/19/2021 9:00 AM CDT): Status post pacemaker placement and followed by the supervisor plasma Supraventricular tachycardia 03/21/2020 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 BMI 45.0-49.9, adult ([facility]) 09/21/2019 Assessment & Plan (07/10/2021 8:46 AM [...] changes. Assessment & Plan (04/06/2020 8:06 AM INSPECTOR HAIRSPRING): BMI Follow-up includes: nutrition counseling. The patient [...] biopsy with ANAHY III -Referred to [facility] and now s/p EUA, CKC and [...] of malignancy or hyperplasia. -06/14: Presented to [facility] with heavy bleeding. Hgb 12. Given DMPA [...] bilat uterine artery ablation Pain control- dilaudid PLASTER PATTERNMAKER, transition to orals as able Add toradol [...] Will make a referral to see the cytology technologist USP current use of insulin ([facility]) 01/24 Morbid (severe) obesity due to excess [...] monitor Assessment & Plan (04/06/2020 8:05 AM INSPECTOR HAIRSPRING): Continue current medications. Discussed low-salt diet. Discussed [...] maintained on Xarelto and followed by the supervisor plasma Assessment & Plan (07/10/2021 8:45 AM CDT): Continue Xarelto. Rate is controlled. She is in normal sinus rhythm. No side effects with medications. Followed by the supervisor plasma Assessment & Plan (01/19/2021 8:59 AM CDT): Patient is maintained on Xarelto. She is in normal sinus rhythm. No bleeding or bruising Assessment & Plan (10/19/2020 9:11 AM CDT): Rate is controlled and she is in normal sinus rhythm and maintained on Xarelto and followed by the supervisor plasma Assessment & Plan (07/29/2020 10:31 AM CDT): NSR on arrival. Follows with OSH Cardiology. [id number] 3. Resume xarelto in coming day(s) Hold sotalol temporarily, repeat EKG pending (avoid qt proloncation w FQ) Assessment & Plan (07/19/2020 9:20 AM CDT): Continue Xarelto on follow-up with supervisor plasma Assessment & Plan (04/06/2020 8:06 AM INSPECTOR HAIRSPRING): Patient maintained on Xarelto and followed by the supervisor plasma Assessment & Plan (01/06/2020 9:10 AM CDT): Rate is controlled and she is maintained on Xarelto and followed by the supervisor plasma Assessment & Plan (09/28/2019 11:18 AM CDT): Continue Xarelto and she is followed by the supervisor plasma Assessment & Plan (09/21/2019 4:25 PM CDT): [...] week. Assessment & Plan (04/06/2020 8:06 AM INSPECTOR HAIRSPRING): Continue current medications, discussed low carbohydrate diet, [...] . Assessment & Plan (04/06/2020 8:06 AM INSPECTOR HAIRSPRING): Controlled on current medications. Continue low-fat diet. [...] gabapentin Assessment & Plan (04/06/2020 8:06 AM INSPECTOR HAIRSPRING): Secondary to diabetes and controlled on gabapentin Assessment & Plan (09/28/2019 11:19 AM CDT): Continue gabapentin Assessment & Plan (09/21/2019 4:26 PM CDT): Increase gabapentin to 600 mg t.i.d. Pulmonary nodule Assessment & Plan (01/19/2021 9:00 AM CDT): Patient has granuloma Assessment & Plan (10/19/2020 9:11 AM CDT): Granuloma Assessment & Plan (04/06/2020 8:06 AM INSPECTOR HAIRSPRING): CT scan of the lungs showed granuloma [...] on file Legal Sex Female 7:11 PM INSPECTOR HAIRSPRING Gender Identity Not on file Sexual Orientation [...] on stairs Contact your local community or [facility] for information on exercise, fall prevention programs, or options for improving home safety. Medical Devices Implanted Type Area Piano Maker Device Identifier Shelf Expiration Date Model / Serial / Lot [employer] Assurity Mri [id number] Chamber Is-1 Connector Thk6mm Pacemaker [id number] - [id number] - [id number] Implanted:Qty: 1 on 10/03/2021 by Giovanni Hassan MD at [facility] Pacemaker Left: Chest Wall [employer] [id number] 03/17/2023 [id number] / [id number] / [employer] S620 Embosphere Saline Syringe Compressible Nonaggregate Highly Target - [id number] Implanted:Qty: 1 on 07/28/2020 at [facility] [employer] 03/11/2023 [facility] / / [id number] -5 [employer] S620 Embosphere Saline Syringe Compressible Nonaggregate Highly Target - [id number] Implanted:Qty: 1 on 07/28/2020 at [facility] [employer] 03/11/2023 S620 / / [id number] -5 [employer] S620 Embosphere Saline Syringe Compressible Nonaggregate Highly Target - [id number] Implanted:Qty: 1 on 07/28/2020 at [facility] [employer] 03/11/2023 S620 / / [id number] -5 [facility] [employer] S620 Embosphere Saline Syringe Compressible Nonaggregate Highly Target - [id number] Implanted:Qty: 1 on 07/28/2020 at [facility] 07/15/2022 S620 / / [id number] -5 [facility] [employer] S620 Embosphere Saline Syringe Compressible Nonaggregate Highly Target - [id number] Implanted:Qty: 1 on 07/28/2020 at [facility] 04/25/2023 S620 / / [id number] -5 [facility] [employer] S620 Embosphere Saline Syringe Compressible Nonaggregate Highly Target - [id number] Implanted:Qty: 1 on 07/28/2020 at [facility] 04/25/2023 S620 / / [id number] Explanted Type Area Piano Maker Device Identifier Shelf Expiration Date Model / Serial / Lot Pacemaker Explanted:Qty: 1 on 10/03/2021 by Giovanni Hassan MD at [facility] Chest Description:[employer] Procedures Procedure Name [...] REFLEX TO GENOTYPING Routine 03/21/2020 3:53 AM INSPECTOR HAIRSPRING from Last 3 Months or Most Recently [...] MD LAB BLOOD ORDERABLES Final Result ALEISHA [address] [facility] Department [place] [address] * Diabetic Eye Exam (01/11/2021) [...] URINE ORDERABLES Final Result Performing Organization Address [facility] de Phone Number [address] [place] [address] * (ABNORMAL) Hemoglobin A1c (10/12/2020 9:41 AM CDT) [facility] Hgb A1C 7.9(H) 4.0 - 5.6 % ALEISHA Estimated Average Glucose 180 mg/dL LAEISHA Comment: The ADA recommends reporting an estimated Average Glucose (eAG) with all Hemoglobin A1c results using the equation derived from a study of 507 normal and diabetic adults. Minority populations were underrepresented and children were not included. (Diabetes Care 31:4617-4774, 2008). The eAG is not equivalent to a fasting glucose. Blood specimen (specimen) 10/12/2020 9:41 AM CDT 10/12/2020 10:02 AM CDT Elizabeth Pollard MD LAB BLOOD ORDERABLES Final Result Performing Organization Address [facility] Co de Phone Number [address] [place] [address] * (ABNORMAL) Lipid panel (10/12/2020 9:41 AM CDT) [facility] Cholesterol 190 30 - 199 mg/dL ALEISHA [...] MD LAB BLOOD ORDERABLES Final Result ALEISHA [address] [facility] Department [place] [address] * Screening Mammogram Bilateral W Jake (06/17/2020 11:12 AM CDT) Anatomical Region Laterality Modality Breast Bilateral Mammography Narrative 06/23/2020 3:16 PM CDT Mammogram Technique: Bilateral Digital Breast Tomosynthesis, Bilateral C-view 2D Screening mammogram. Views obtained: bilateral craniocaudal and bilateral mediolateral oblique. Computer Aided Detection was performed. Mammogram Findings: The present examination has been compared to prior imaging studies performed at [place], [place] on 01/30/2016 and 08/21/2018. There are [...] compared to prior imaging studies performed at [place], [place] on 01/30/2016 and 08/21/2018. There are [...] HPV, reflex to Genotyping (03/21/2020 3:53 AM INSPECTOR HAIRSPRING) 03/21/2020 3:53 AM INSPECTOR HAIRSPRING 03/21/2020 5:21 PM INSPECTOR HAIRSPRING Narrative [facility] - 03/25/2020 11:14 AM INSPECTOR HAIRSPRING EPIC results best viewed via link to PDF [facility] [place] [address] CYTOPATHOLOGY REPORT FINAL Patient Name: JULIENNE BRAVO Gender: F : 1970 (Age: 49) Address: [address] [place] [address] Hospital #: [id number] Service: Gynecology Location[place] [facility] [place] Patient Type: [facility] Ancillary Taken: 03/21/2020 Received: 03/21/2020 Accessioned: 03/21/2020 [...] 68. This HPV test was performed at [facility] in [place], [place] utilizing the Gen-Probe Aptima assay. mg/03/25/2020 [...] determined by the Surgical Pathology Department at [facility] as part of an ongoing billing and quality technician program and in compliance with federally mandated [...] determined by the Surgical Pathology Department of [facility]. It has not been cleared or approved by the U. S. Food and Drug Administration. Tonia Casey MD LAB CYTOLOGY ORDERABLES Nargis alonso Result [facility] [address] [facility] [address] [place] [address] from Last 3 Months or Most Recently Relevant to Health Maintenance Insurance [facility] [employer] [facility] Advance Directives For more information, please contact: [phone] * Full Code (Latest Code Status on File) Date Activated Date Inactivated Comments 07/28/2020 7:49 AM 07/29/2020 9:58 PM * Full Code Date Activated Date Inactivated Comments 07/28/2020 7:49 AM 07/28/2020 7:49 AM Care Teams Inspector And Hand Packager Relationship Specialty Start Date End Date Elizabeth Pollard MD [address] [facility] [address] [address] PCP - General Internal Medicine 09/07/19
--- OUTSIDE RECORDS SUMMARY | 2024-04-24 02:25 | XMS_ITS | Patient Health Record ---
Author Organization [facility] Address [address] [address] Care Team Providers Care Tax Intern Name Role Phone MAYA ORTEGA Unavailable [phone] ALLERGIES No Known Allergies REASON FOR REFERRAL No Information PROBLEMS Problem Type ICD Code Onset Dates Problem Status W/U Status Risk SNOMED Code Notes Problem Obesity (E66.9) Active confirmed Obesit y (827709762) Problem Cystocele, unspecified (N81.10) Active confirmed Cystocele (606438821) Problem Incontinence of urine in female (R32) Active confirmed Urinary incontinence (274793021) Problem Pelvic Pain (R10.2) Active confirmed Pain in pelvis (85544913) Problem Fibroids (D21.9) Active confirmed Fibro ids (31229041) Problem Screening for cervical cancer (Z12.4) Active confirmed Screening for malignant neoplasm of cervix (procedure) (897551410) Problem Abnormal uterine bleeding (N93.9) Active confirmed Abnormal ut erine bleeding (54355883829798) Problem PMB (postmenopausal bleeding) (N95.0) Active confirmed Postmenopausal bleeding (48324951) Problem Encounter to discuss test results (Z71.2) Active confirmed Evaluation o f test results (procedure) (770620910) Problem Urinary incontinence in female (R32) Active confirmed Urinary incontinence (893529535) PLAN OF TREATMENT Pending Test Test Name Order Date IGP, Aptima HPV, rfx 16/18,45 07/19/2022 Pathology Report 07/19/2022 Insurance Providers Payer Name Payer Address Payer Phone Subscriber Number Group Number Insured Name Patient Relationship to Insured Coverage Start Date Coverage End Date [place] [address] [place] [phone] [id number] Julienne Bravo Self - patient is the insured 3 MEDICAL (GENERAL) HISTORY Medical History History ICD Code Fibroid Post menopausal bleeding Surgical History Surgery Date(Month/Year) Tubal ligation Ablation UFE Hospitalization History Reason Date(Month/Year) As above
--- OUTSIDE RECORDS SUMMARY | 2024-04-24 02:25 | XMS_ITS | Encounter Summary ---
Author Organization [facility] Healthcare Address [address] [place] [address] Care Team Providers Care Concrete Form Setter Name Role Phone Elizabeth Pollard MD Primary Care Provider [phone] Encounter Details Date Type Department Care Team (Late st Contact Info) Description 06/16/2020 Telephone Obstetrics and Gynecology Clinic [address] [facility] Health 3rd Floor [address] [place] [address] Roula Goel Social History Tobacco [...] on file Legal Sex Female 7:11 PM MOLECULAR BIOLOGY DIRECTOR Gender Identity Not on file Sexual Orientation [...] on stairs Contact your local community or [facility] for information on exercise, fall prevention programs, or options for improving home safety. documented as of this encounter Visit Diagnoses Not on filedocumented in this encounter Additional Health Concerns Infection Onset Date Last Indicated Resolved Time COVID: Suspected 03/22/2021 03/22/2021 04/05/2021 3:05 AM MOLECULAR BIOLOGY DIRECTOR documented as of this encounter Care Teams Concrete Form Setter Relationship Specialty Start Date End Date Elizabeth Pollard MD [address] [facility] [place] [address] PCP - General Internal Medicine 09/07/19 documented as of this encounter
--- OUTSIDE RECORDS SUMMARY | 2024-04-24 02:25 | XMS_ITS | Continuity of Care Document ---
Author Organization [facility] Address [address] [facility] [address] [place] [address] Phone Care Team Providers Care Media Director Name Role Phone Perea OD, Aldair Unavailable Unavailable Advance Directives Directive Yes / No Effective Date File Name No Information Encounters Encounter Description Practice Location Reason(s) For Visit Diagnoses Date Provider Providers Copied on Encounter [facility], [address], [place], [place], [id number], [place] tel:[phone] [facility] No Information Dec-1 7-200 3 Perea OD Aldair. [address] [facility] , [address], [place], [address], [place]. tel:[phone] Family History Family Member Type Diagnosis Age At Onset No Information Payers Payer name Insurance type Covered republican ID Authoriza tion(s) Medicaid [facility] [id number] Social History Type Description Quantity Date Captured [...]
--- OUTSIDE RECORDS SUMMARY | 2024-04-24 02:25 | XMS_ITS | Referral Summary ---
Author Organization [facility] Address [address] [place] [address] Care Team Providers Care Auto Damage Trainee Name Role Phone Elizabeth Pollard MD Primary Care Provider [phone] Allergies Active Allergy Reactions Criticality Noted Date Comments Empagliflozin Hives Medium 10/21/2020 Shellfish Anaphylaxis High 10/04/2016 Diffuse swelling and to tongue. Medications alcohol swabs pads, medicatedIndicati ons:Type 2 diabetes mellitus without complication, with long-term current use of insulin ([facility]) ([facility]) Use to swabs daily to clean area 200 each 5 1 Active blood-glucose meter miscIndications:T ype 2 diabetes mellitus without complication, with long-term current use of insulin ([facility]) ([facility]) Test blood glucose twice a [...] ons:Type 2 diabetes mellitus with peripheral neuropathy ([facility]) Inject 38 Units under the [...] complication, with long-term current use of insulin ([facility]) ([facility]) Use two lancet daily to [...] and low-salt diet and followed by the uniform designer Bradycardia 09/28/2021 Overview (09/28/2021): Added automatically from request for surgery [id number] Chronic pain of left thumb 01/19/2021 Assessment [...] (04/22/2020): Added automatically from request for surgery [id number] Fibroids 04/22/2020 Overview (04/22/2020): Added automatically from request for surgery [id number] Foot callus 04/06/2020 Assessment & Plan (04/06/2020 8:37 AM ARTIST'S MODEL): Patient has small callus in the plantar aspect of left foot. It was treated with liquid nitrogen. She will call back in 1 week if it is not resolved. We will make a referral to see a salon manager Oligomenorrhea 03/28/2020 Overview (03/28/2020): Patient with 2-3 [...] asymptomatic. Continue current medications. Followed by the uniform designer Assessment & Plan (01/19/2021 8:59 AM CDT): Asymptomatic. Continue current medications. Follow up with the uniform designer Assessment & Plan (10/19/2020 9:12 AM CDT): Patient is asymptomatic and followed by the uniform designer Assessment & Plan (07/19/2020 9:22 AM CDT): Managed by the uniform designer Assessment & Plan (04/06/2020 8:08 AM ARTIST'S MODEL): Managed by the uniform designer Atypical chest pain 03/21/2020 Femoroacetabular impingement of left hip 021 Insect stings 03/21/2020 Pain of lower extremity 03/21/2020 Presence of permanent cardiac pacemaker 03/21/19 Sick sinus syndrome ([facility]) 03/21/2020 Assessment & Plan (07/10/2021 8:47 AM CDT): Status post pacemaker placement Assessment & Plan (01/19/2021 9:00 AM CDT): Status post pacemaker placement and followed by the uniform designer Supraventricular tachycardia 03/21/2020 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 BMI 45.0-49.9, adult ([facility]) 09/21/2019 Assessment & Plan (07/10/2021 [...] changes. Assessment & Plan (04/06/2020 8:06 AM ARTIST'S MODEL): BMI Follow-up includes: nutrition counseling. The patient [...] biopsy with ANAHY III -Referred to [facility] and now s/p EUA, CKC and [...] of malignancy or hyperplasia. -06/14: Presented to [facility] with heavy bleeding. Hgb 12. Given DMPA [...] bilat uterine artery ablation Pain control- dilaudid BARK FITTER, transition to orals as able Add toradol [...] Will make a referral to see the roll form operator care home current use of insulin ([facility]) 01/24 Morbid (severe) obesity due [...] monitor Assessment & Plan (04/06/2020 8:05 AM ARTIST'S MODEL): Continue current medications. Discussed low-salt diet. Discussed [...] maintained on Xarelto and followed by the uniform designer Assessment & Plan (07/10/2021 8:45 AM CDT): Continue Xarelto. Rate is controlled. She is in normal sinus rhythm. No side effects with medications. Followed by the uniform designer Assessment & Plan (01/19/2021 8:59 AM CDT): Patient is maintained on Xarelto. She is in normal sinus rhythm. No bleeding or bruising Assessment & Plan (10/19/2020 9:11 AM CDT): Rate is controlled and she is in normal sinus rhythm and maintained on Xarelto and followed by the uniform designer Assessment & Plan (07/29/2020 10:31 AM CDT): NSR on arrival. Follows with OSH Cardiology. [id number] 3. Resume xarelto in coming day(s) Hold sotalol temporarily, repeat EKG pending (avoid qt proloncation w FQ) Assessment & Plan (07/19/2020 9:20 AM CDT): Continue Xarelto on follow-up with uniform designer Assessment & Plan (04/06/2020 8:06 AM ARTIST'S MODEL): Patient maintained on Xarelto and followed by the uniform designer Assessment & Plan (01/06/2020 9:10 AM CDT): Rate is controlled and she is maintained on Xarelto and followed by the uniform designer Assessment & Plan (09/28/2019 11:18 AM CDT): Continue Xarelto and she is followed by the uniform designer Assessment & Plan (09/21/2019 4:25 PM CDT): [...] week. Assessment & Plan (04/06/2020 8:06 AM ARTIST'S MODEL): Continue current medications, discussed low carbohydrate diet, [...] . Assessment & Plan (04/06/2020 8:06 AM ARTIST'S MODEL): Controlled on current medications. Continue low-fat diet. [...] gabapentin Assessment & Plan (04/06/2020 8:06 AM ARTIST'S MODEL): Secondary to diabetes and controlled on gabapentin Assessment & Plan (09/28/2019 11:19 AM CDT): Continue gabapentin Assessment & Plan (09/21/2019 4:26 PM CDT): Increase gabapentin to 600 mg t.i.d. Pulmonary nodule Assessment & Plan (01/19/2021 9:00 AM CDT): Patient has granuloma Assessment & Plan (10/19/2020 9:11 AM CDT): Granuloma Assessment & Plan (04/06/2020 8:06 AM ARTIST'S MODEL): CT scan of the lungs showed granuloma [...] on file Legal Sex Female 7:11 PM ARTIST'S MODEL Gender Identity Not on file Sexual Orientation [...] on stairs Contact your local community or [facility] for information on exercise, fall prevention programs, or options for improving home safety. Medical Devices Implanted Type Area Marketing Content Coordinator Device Identifier Shelf Expiration Date Model / Serial / Lot [employer] Assurity Mri [id number] 2 Chamber Is-1 Connector Thk6mm Pacemaker [id number] - [id number] - [id number] Implanted:Qty: 1 on 10/03/2021 by Giovanni Hassan MD at [facility] Pacemaker Left: Chest Wall [employer] [id number] 03/17/2023 [id number] / [id number] / [facility] [employer] S620 Embosphere Saline Syringe Compressible Nonaggregate Highly Target - [id number] Implanted:Qty: 1 on 07/28/2020 at [facility] [employer] 03/11/2023 S620 / / [id number] -[id number] [facility] [employer] S620 Embosphere Saline Syringe Compressible Nonaggregate Highly Target - [id number] Implanted:Qty: 1 on 07/28/2020 at [facility] [employer] 03/11/2023 S620 / / [id number] [facility] [employer] S620 Embosphere Saline Syringe Compressible Nonaggregate Highly Target - [id number] Implanted:Qty: 1 on 07/28/2020 at [facility] [employer] 03/11/2023 S620 / / [id number] [facility] [employer] S620 Embosphere Saline Syringe Compressible Nonaggregate Highly Target - [id number] Implanted:Qty: 1 on 07/28/2020 at [facility] [employer] 07/15/2022 S620 / / [id number] -[id number] [facility] [employer] S620 Embosphere Saline Syringe Compressible Nonaggregate Highly Target - [id number] Implanted:Qty: 1 on 07/28/2020 at [facility] [employer] 04/25/2023 S620 / / [id number] -[id number] [facility] [employer] S620 Embosphere Saline Syringe Compressible Nonaggregate Highly Target - [id number] Implanted:Qty: 1 on 07/28/2020 at [facility] [employer] 04/25/2023 S620GH / / [id number] Explanted Type Area Marketing Content Coordinator Device Identifier Shelf Expiration Date Model / Serial / Lot Pacemaker Explanted:Qty: 1 on 10/03/2021 by Giovanni Hassan MD at [facility] Chest Description:[employer] Procedures Procedure Name [...] REFLEX TO GENOTYPING Routine 03/21/2020 3:53 AM ARTIST'S MODEL from Last 3 Months or Most Recently [...] BLOOD ORDERABLES Final Result Performing Organization Address [facility] [place]/[facility]/ZIP Co de Phone Number [place] [address] [facility] [place] [address] * Diabetic Eye Exam (01/11/2021) Narrative Luzmaria [...] URINE ORDERABLES Final Result Performing Organization Address City/[facility]/ZIP Co de Phone Number [address] [place] [place] [address] * (ABNORMAL) Hemoglobin A1c (10/12/2020 9:41 AM CDT) Hgb A1C 7.9(H) 4.0 - 5.6 % ALEISHA SPAIN Estimated Average Glucose 180 mg/dL ALEISHA SPAIN Comment: The ADA recommends reporting an estimated Average Glucose (eAG) with all Hemoglobin A1c results using the equation derived from a study of 507 normal and diabetic adults. Minority populations were underrepresented and children were not included. (Diabetes Care 31:3430-3219, 2008). The eAG is not equivalent to a fasting glucose. Blood specimen (specimen) 10/12/2020 9:41 AM CDT 10/12/2020 10:02 AM CDT Elizabeth Pollard MD LAB BLOOD ORDERABLES Final Result ALEISHA [facility] of [facility] [place], [place] [phone] * (ABNORMAL) Lipid panel (10/12/2020 9:41 AM [...] BLOOD ORDERABLES Final Result Performing Organization Address City/State/[facility] Co de Phone Number ALEISHA SPAIN [address] [facility] [place] [address] * Screening Mammogram Bilateral W Jake (06/17/2020 11:12 AM CDT) Anatomical Region Laterality Modality Breast Bilateral Mammography Narrative 06/23/2020 3:16 PM CDT Mammogram Technique: Bilateral Digital Breast Tomosynthesis, Bilateral C-view 2D Screening mammogram. Views obtained: bilateral craniocaudal and bilateral mediolateral oblique. Computer Aided Detection was performed. Mammogram Findings: The present examination has been compared to prior imaging studies performed at [place], [place] on 01/30/2016 and 08/21/2018. There are [...] compared to prior imaging studies performed at [place], [place] on 01/30/2016 and 08/21/2018. There are [...] HPV, reflex to Genotyping (03/21/2020 3:53 AM ARTIST'S MODEL) 03/21/2020 3:53 AM ARTIST'S MODEL 03/21/2020 5:21 PM ARTIST'S MODEL Narrative [facility] - 03/25/2020 11:14 AM ARTIST'S MODEL EPIC results best viewed via link to PDF [facility] [place] [address] CYTOPATHOLOGY REPORT FINAL Patient Name: JULIENNE BRAVO Gender: F : 1970 (Age: 49) Address: [address] [place] [address] Hospital #: [id number] Service: Gynecology Location: [facility] Patient Type: [facility] Ancillary Taken: 03/21/2020 Received: 03/21/2020 [...] 68. This HPV test was performed at [facility] in [place], [place] utilizing the Gen-Probe Aptima assay. /03/25/2020 [...] determined by the Surgical Pathology Department at [facility] as part of an ongoing quality assurance technician program and in compliance with federally [...] determined by the Surgical Pathology Department of [facility]. It has not been cleared or approved by the U. S. Food and Drug Administration. Tonia Casey MD LAB CYTOLOGY ORDERABLES Nargis alonso Result [facility] [address] [place] [address] from Last 3 Months or Most Recently Relevant to Health Maintenance Insurance [employer] [facility] [employer] [facility] AET [employer] [facility] Advance Directives For more information, please contact: [phone] * Full Code (Latest Code Status on File) Date Activated Date Inactivated Comments 07/28/2020 7:49 AM 07/29/2020 9:58 PM * Full Code Date Activated Date Inactivated Comments 07/28/2020 7:49 AM 07/28/2020 7:49 AM Care Teams Auto Damage Trainee Relationship Specialty Start Date End Date Elizabeth Pollard MD [address] [place] [address] [place] [address] PCP - General Internal Medicine 09/07/19
[2024-04-24 02:34] VITALS: PULSE 68; RESP 18
[2024-04-24] MEDS: guaiFENesin/DEXTROMETHORPHAN 10 ML UDC PO (02:46)
[2024-04-24] MEDS: dexAMETHasone SOD PHOS INJ 10 MG/ML 1 ML VIAL IM (02:47)
[2024-04-24 03:05] VITALS: O2SAT 100
--- NOTE | 2024-04-24 03:09 | ED_ITS ---
HPI - General Adult General Chief complaint: Chest Pain Stated complaint: cough, chest pain Time Seen by Provider: 04/24/24 01:57 History of Present Illness HPI narrative: This is a 54-year-old woman with history of CHF, pacemaker in asthma presenting for difficulty breathing. Patient has had URI symptoms several days. She has now developed left-sided chest discomfort that is worse when she coughs. She has been taking all her medications as prescribed. She has not developed lower extremity edema or other symptoms she is so seat with CHF. She denies sick contacts at home. She denies fevers chills nausea vomiting or diarrhea. Her biggest complaint is this persistent cough Related Data Allergies Allergy/AdvReac Type Severity Reaction Status Date / Time Shrimp Allergy Intermediate Swelling Uncoded 04/17/18 12:03 Exam 2 Narrative: APPEARANCE: No apparent distress. patient is coughing Head: atraumatic. EYES: EOMI, NOSE: Atraumatic NECK: Trachea midline RESPIRATORY: scattered end-expiratory wheezing, normal respiratory rate 100% on room air CARDIOVASCULAR: RRR, no peripheral edema ABDOMINAL: Non-distended soft nontender MUSCULOSKELETAl: No obvious deformities NEURO: Alert. Moving 4/4 extremities SKIN:: Warm, dry. Normal color PSYCHIATRIC: Normal affect Course Vital Signs Vital signs: Vital Signs Temperature 97.9 F 04/23/24 21:58 Pulse Rate 68 04/23/24 21:58 Respiratory Rate 15 04/23/24 21:58 Blood Pressure 147/70 H 04/23/24 21:58 Pulse Oximetry 100 04/23/24 21:58 Oxygen Delivery Room Air 04/23/24 21:58 Temperature 97.9 F 04/23/24 21:58 Pulse Rate 68 04/24/24 02:34 Respiratory Rate 18 04/24/24 02:34 Blood Pressure 147/70 H 04/23/24 21:58 Pulse Oximetry 100 04/24/24 03:05 Oxygen Delivery Room Air 04/24/24 03:05 Medical Decision Making [facility] Narrative Medical decision making narrative: -Course: 54-year-old female multiple medical comorbidities presenting with left-sided chest pain and cough. Chest pain workup was negative with tropes negative x2, normal EKG and chest x-ray . She is positive for RSV which is likely causing her persistent cough. Patient given a breathing treatment for scattered end-expiratory wheezing. Given cough syrup/cough lozenges. Patient be discharged follow-up care physician. Given return precautions for breathing or worsening chest pain. -DDX includes but is not limited to: CHF, COPD, viral illness, pneumonia Independent EKG interpretation: Rhythm [sinus], Rate [70], [place] -[normal], [place] -[normal], QRS [narrow], QTC [normal], T waves -[negative for concerning inversions], ST Segments - [Negative for concerning elevations] Final interpretations: Normal sinus rhythm Vital Signs Vital Signs: Vital Signs Temperature 97.9 F 04/23/24 21:58 Pulse Rate 68 04/23/24 21:58 Respiratory Rate 15 04/23/24 21:58 Blood Pressure 147/70 H 04/23/24 21:58 Pulse Oximetry 100 04/23/24 21:58 Oxygen Delivery Room Air 04/23/24 21:58 Temperature 97.9 F 04/23/24 21:58 Pulse Rate 68 04/24/24 02:34 Respiratory Rate 18 04/24/24 02:34 Blood Pressure 147/70 H 04/23/24 21:58 Pulse Oximetry 100 04/24/24 03:05 Oxygen Delivery Room Air 04/24/24 03:05 Lab Data 04/23/24 22:06 04/23/24 22:06 Labs: Lab Results 04/23/24 04/24/24 Range/Units 22:06 02:54 WBC 11.8 H (4.5-10.0) K/mm3 RBC 4.70 (4.2-5.4) M/mm3 Hgb 13.0 (12.0-15.0) g/dL Hct 39.4 (37.0-47.0) % MCV 83.8 (80-100) fl MCH 27.7 (26-34) pg MCHC 33.0 (32-36) g/dl RDW 14.6 H (11.5-14.5) % Plt Count 345 (150-375) k/mm3 MPV 10.6 H (7.4-10.4) fl Immature Gran % (Auto) 0.3 (0-0.5) % Neut % (Auto) 53.2 (45.5-73.1) % Lymph % (Auto) 38.4 (18.3-44.2) % Owen % (Auto) 6.0 (2.6-8.5) % Eos % (Auto) 1.8 (0-4.4) % Baso % (Auto) 0.3 (0.2-1.2) % Lymph # (Auto) 4.51 H (0.9-3.2) K/mm3 Owen # (Auto) 0.7 H (0.1-0.6) K/mm3 Eos # (Auto) 0.2 (0-0.3) K/mm3 Baso # (Auto) 0.0 (0.0-0.1) K/mm3 Abs Immat Gran (auto) 0.04 H (0.00-0.031) K/mm3 Absolute Neuts (auto) 6.3 (1.3-6.7) K/mm3 Absolute Nucleated RBC 0.000 (0.0-0.012) K/mm3 Nucleated RBC % 0.0 (0.0-0.2) % PT 17.7 H (11.1-14.7) Seconds INR 1.4 APTT 35.0 (22.3-36.8) Seconds Sodium 136 L (137-145) mmol/L Potassium 3.9 (3.4-5.0) mmol/L Chloride 100 (98-107) mmol/L Carbon Dioxide 26 (22-30) mmol/L Anion Gap 10 (4-12) mmol/L BUN 17 (7-17) mg/dL Creatinine 0.77 (0.7-1.0) mg/dL Estim Creat Clear Calc 89 ml/min Estimated GFR > 60 (59 - ) Glucose 257 H (65-110) mg/dL Calcium 9.0 (8.4-10.2) mg/dL Total Bilirubin 0.4 (0.2-1.3) mg/dL AST 20 (14-36) U/L ALT 15 (6-35) U/L Alkaline Phosphatase 87 (38-126) U/L Troponin I < 0.012 Pending (0.000-0.034) ng/mL Total Protein 8.0 (6.3-8.2) g/dL Albumin 3.9 (3.5-5.1) g/dL Lipase 59 (23-300) U/L Influenza A (RT-PCR) Negative (Negative) Influenza B (RT-PCR) Negative (Negative) RSV (RT-PCR) Positive A (Negative) SARS-CoV-2 RNA (RT-PCR) Negative (Negative) Discharge Plan Discharge Clinical Impression: Respiratory syncytial virus (RSV) infection, Atypical chest pain Patient Disposition: Home, Self-Care Condition: Stable Instructions: Antibiotic Form, Viral Syndrome (ED) Additional Instructions: You were seen in the emergency department for a cough. You are positive for RSV which can cause cold symptoms. Please continue taking your breathing treatments. You can use Tylenol for pain control. if you feel your condition is getting worse please return to the emergency department immediately for re- evaluation Patient Language: Yoruba Prescriptions: New acetaminophen 500 mg tablet 1,000 mg PO TID PRN (Reason: venancio) 7 Days Qty: 42 0RF Robitussin Cough-Chest Chau DM 10-200 mg capsule 1 tab-cap PO ONCE PRN (Reason: cough) Qty: 14 0RF Cepacol Sore Throat (casimiro-men) 15-2.6 mg lozenge 1 ariadne mucous membrane Q2-4H PRN (Reason: cough) Qty: 16 0RF Follow-up/Referrals: PHYSICIAN,BALANCING MACHINE SET UP WORKER [Primary Care Provider] -
[2024-04-24 03:10] VITALS: BP 141/70; PULSE 68; RESP 22; O2SAT 100
[2024-04-24 03:21] VITALS: PULSE 71; RESP 18
[2024-04-24 03:27] LABS: Troponin I < 0.012 ng/mL (0.000-0.034)
== END 2024-04-24 04:38 | disposition home or self-care (01) ==
PROVIDERS: Emergency Medicine; Emergency Provider Emergency Medicine
DX: R07.89 Other chest pain (principal); B97.4 Respiratory syncytial virus as the cause of diseases classified elsewhere; Z20.822 Contact with and (suspected) exposure to COVID-19; I50.9 Heart failure, unspecified; Z95.0 Presence of cardiac pacemaker
CPT/HCPCS: 36415; 71046; 80053; 83690; 84484; 85025; 85610; 85730; 87637; 93005; 94640; 96372; 99284; A9270; J1100

== ENCOUNTER 2024-11-05 10:09 | Emergency (ER) | payer OTHER, SELFPAY ==
--- OUTSIDE RECORDS SUMMARY | 2024-07-31 03:20 | XMS_ITS ---
Author Organization E [facility] Address [address] [place] [address] Care Team Providers Care Cath Lab Radiology Technician Name Role Phone Joni Warner Primary Care Provider Dr. Joni Warner Unavailable [phone] [place], Don Unavailable [phone] REASON FOR VISIT 1 year f/u Social History Sex Assigned At : Social History Observation Description Sex Assigned At Female Encounters Encounter Location Date Provider Diagnosis E [facility] [address] [place] [phone] 07/31/2024 Donmorgan Flores Plan Of Treatment No Information Progress Notes * Julienne BRAVO RDOB:1970 (54 yo F)Acc No.[id number]:07/31/2024 Progress Note Patient: Julienne RATLIFF Provider: Dorota Flores MD :1970 A ge:54 Y S ex:Female Date:07/31/2024 Address:[address] [place] [address] Pcp:Joni Warner Patient's Default Facility:[facility] Structured Data:Seasonal : N o Subjective: * Chief Complaints: * 1 . 1 year f/u. * Medical History: Objective: * Vitals: Assessment: Plan: * Treatment: * Images: Billing Information: * Visit Code: * Procedure Codes: * Electronic signature of Norm an [place] on 11/05/2024 at 10:46 AM CDT Sign off status: Pending * Provider: Dorota Flores MD Date: 0 07/31/2024 Generated for Constance sanchez/Oneil/Daniel on: 0 11/05/2024 10:46 AM CDT
--- OUTSIDE RECORDS SUMMARY | 2024-08-20 04:20 | XMS_ITS ---
Author Organization E [facility] Address [address] [place] [address] Care Team Providers Care Drafting Layout Man Name Role Phone Joni Warner Primary Care Provider [phone] Joni Warner Unavailable [phone] REASON FOR VISIT 6 month f/u Social History Sex Assigned At : Social History Observation Description Sex Assigned At Female Encounters Encounter Location Date Provider Diagnosis [facility] [address] [place] [address]/20/2024 Joni Warner Plan Of Treatment No Information Progress Notes * Julienne BRAVO RDOB:1970 (54 yo F)Acc No.[id number]:08/20/2024 Progress Notes Patient: Julienne RATLIFF Provider: Teetee Warner MD :1970 A ge:54 Y S ex:Female Date:08/20/2024 Address:[address] [place] [address] Patient's Default Facility:[facility] Structured Data:Seasonal : N o Subjective: * Chief Complaints: * 1 . 6 month f/u. * Medical History: Objective: * Vitals: Assessment: Plan: * Treatment: * Images: Billing Information: * Visit Code: * Procedure Codes: Care Plan Details* * Electronic signature of Douglas Warner MD on 11/05/2024 at 10:46 AM CDT Sign off status: Pending * Provider: Teetee Warner MD Date: 08/20/2024 Generated for Constance sanchez/Oneil/Reynaldoitting on: 0 11/05/2024 10:46 AM CDT
--- OUTSIDE RECORDS SUMMARY | 2024-08-21 03:33 | XMS_ITS ---
Author Organization E [facility] Address [address] [place] [phone] Care Team Providers Care Oem Sales Manager Name Role Phone Joni Warner Primary Care Provider Dr. Joni Warner Unavailable [phone] REASON FOR VISIT NO SHOW Social History Sex Assigned At : Social History Observation Description Sex Assigned At Female Encounters Encounter Location Date Provider Diagnosis E [facility] [address] [place] [phone] 08/21/2024 Joni Warner Plan Of Treatment No Information Progress Notes * Julienne JOHNSON RDOB:1970 (54 yo F)Acc No.[id number]:08/21/2024 Patient: Julienne RATLIFF :1970 A ge:54 Y S ex:Female Address:[address] [place] [address] * true * Date: Generated for Siobhani laura/Oneil/eTransmitting on: 0 11/05/2024 10:46 AM CDT
--- NOTE | ~2024-11-05 | CT_ITS ---
EXAMINATION: CT thoracic lumbar wo con DATE: 11/05/2024 11:15 INDICATION: Right-sided thoracic and midline to right-sided lumbar pain. TECHNIQUE: Computed tomography (CT) of the thoracic and lumbar spine was performed without intravenous contrast. Automated exposure control and iterative reconstruction technique were employed. The dose-length product was 1828.76 mGy-cm. COMPARISON: None FINDINGS: Thoracic spine: Alignment is normal. Minimal chronic appearing anterior wedging with 10% or less anterior vertebral body height loss at T6-T8 and at T12. No acute fracture. Mild disc height loss at T4-T5 through T10-T11. The stenotic superior to extend beyond the endplate margins. There is mild ossification along the ligamentum flavum. Both the mid and lower thoracic spine which contribute to mild central canal stenosis most prominent at T9-T10 and T6-T7. There is severe facet osteoarthritis on the left at T10-T11 and T11-T12. Additional mild to moderate multilevel facet osteoarthritis throughout the thoracic spine with lower thoracic predominance. There is. Minimal to mild thoracic neural foraminal stenosis most prominent on the left at T9-T10 and T10-T11. Lumbar spine: Alignment is normal. Vertebral body heights are normal. No fracture. Minimal disc height loss at L3-L4 and L4-L5. The discs do not extend beyond the endplate margins with no central canal stenosis. There is severe facet osteoarthritis bilaterally at L4-L5 and on the right at L5-S1. Mild to moderate osteoarthritis throughout the remainder of the lumbar spine. There is mild neural foraminal stenosis bilaterally at L4-L5 and on the right at L5-S1. Peripherally calcified likely degenerated fibroids in the partially visualized uterus. Paravertebral soft tissues are otherwise unremarkable. Dual-lead cardiac pacemaker with leads terminating at the right atrium and in the right ventricle. Visualized portion of the lungs are clear with no pleural effusion. Paravertebral soft tissues are unremarkable. IMPRESSION: 1. Mild thoracic and lumbar spondylosis. Reviewed, dictated and finalized at location A.
--- NOTE | ~2024-11-05 | CT_ITS ---
EXAMINATION: CT cervical spine wo con DATE: 11/05/2024 11:15 INDICATION: Nontraumatic right neck pain TECHNIQUE: Computed tomography (CT) of the cervical spine was performed without intravenous contrast. Automated exposure control and iterative reconstruction technique were employed. The dose-length product was 544.79 mGy-cm. COMPARISON: None FINDINGS: Straightening of the normal cervical lordosis. Vertebral body and disc heights are normal. No definitive extension of the disc beyond the endplate margins with no central canal stenosis. There is prominent nearly bridging anterior osteophyte at C5-C6. There is multilevel mild cervical uncovertebral ost eoarthritis. Moderate facet osteoarthritis, bilaterally at C7-T1 with additional multilevel mild bilateral facet osteoarthritis throughout the more cephalad cervical and more caudal upper thoracic spine. No neural foraminal stenosis. Cervical soft tissues are unremarkable. Calcified nodule at the left apex consistent with old granulomatous disease. Left-sided dual-lead cardiac pacemaker with leads extending into the proximal superior vena cava and beyond the caudal margin of the field of imaging. IMPRESSION: 1. Moderate facet osteoarthritis bilaterally at C7-T1 and multilevel mild bilateral facet and uncovertebral osteoarthritis throughout remainder the cervical spine. No stenosis of the osseous central canal or neural foramina. Reviewed, dictated and finalized at location A. IMPRESSION: 1. Moderate facet osteoarthritis bilaterally at C7-T1 and multilevel mild bilat eral facet and uncovertebral osteoarthritis throughout remainder the cervical s pine. No stenosis of the osseous central canal or neural foramina.
[2024-11-05 10:13] VITALS: BP 140/82; PULSE 65; RESP 18; TEMP 36.9; O2SAT 100
--- OUTSIDE RECORDS SUMMARY | 2024-11-05 10:47 | XMS_ITS | Patient Health Record ---
Author Organization E [facility]ly [facility] Address [address] [place] [address] Care Team Providers Care Central Lab Technician Name Role Phone Joni Warner Primary Care Provider [phone] Joni Warner Unavailable [phone] Taty Giles Unavailable [phone] Don Flores Unavailable [phone] Isabelle Meadows Unavailable [phone] Beba Baires Unavailable [phone] Allergies Allergen (clinical drug ingredient) Drug/Non Drug Allergy documented on EMR Reaction Allergy Type Onset Date Status Shellfish (FN) Shellfish-derived Products Unknown Drug Allergy Active empagliflozin Jardiance Unknown Drug Allergy Act jonathan Results Component Value Reference Range Notes Strep Reviewed date:01/31/2024 12:38:39 AM Interpretation:Negative Performing Lab: Notes/Report: Negative QC(internal) ok Strep neg NEG - INFLUENZA A and B Reviewed date:01/31/2024 12:38:01 AM Interpretation:Negative Performing Lab: Notes/Report: Negative influenza A neg inluenza B neg QC(internal) ok neg - Zelaya ID Now Covid-19 molec ular test Reviewed date:01/31/2024 12:38:25 AM Interpretation:Negative Performing Lab: Notes/Report: Negative Covid-19 negative Negative - Positive QC (Neg) ok GROUP A STREP CULTURE([facility]) Reviewed date:03/19/2024 10:38:46 AM Interpretation:Abnormal Performing Lab: Notes/Report: UNLESS OTHERWISE INDICATED, ALL TESTING PERFORMED AT: [employer] [address] CLIA NUMBER [id number] MEDICAL MUCK MINER BLASTING, MARYURI WARNER M.D. GROUP A STREP CULTURE See Note GROUP A STREP CULTURE Specimen Throat CULTURE Organism 1 Streptococcus, Beta not group A Isolated Comments on Lab Id:[id number] Beta hemolytic Streptococci are uniformly susceptible to penicillins. [facility] [address] [place] [address] Auction Block Clerk: Reema Scott, PhD, D([facility]) CLIA# [id number] COMP METABOLIC PANEL([facility]) Reviewed date:02/20/2024 01:10:08 PM Interpretation: Normal Performing Lab: Notes/Report: UNLESS OTHERWISE INDICATED, ALL TESTING PERFORMED AT: [place] [address] CLIA NUMBER [id number] MEDICAL MUCK MINER BLASTING, MARYURI WARNER M.D. Sodium 140 135-146 mEq/L Potassium 4.0 3.5-5.4 mEq/L Chloride 103 95-107 mEq/L Carbon Dioxide 24 19-31 mEq/L Anion Gap 13 7-23 mEq/L Glucose Non-Fasting 193 70-139 mg/dL Urea Nitrogen (BUN) 9 6-20 mg/dL Creatinine 0.71 0.60-1.30 mg/dL 2020 CKD-EPI eGFR-cr 102 >59 mL/min/1.73m'2 BUN/Creatinine Ratio 13 Calcium Total 9.7 8.5-10.5 mg/dL Protein Total 7.2 6.1-8.3 g/dL Albumin 4.0 3.5-5.2 g/dL Globulin 3.2 1.7-4.3 g/dL A/G Ratio 1.3 0.9-2.8 ratio Bilirubin Total 0.5 0.0-1.2 mg/dL Alkaline Phosphatase 114 40-133 U/L AST (SGOT) 15 9-40 U/L ALT (SGPT) 9 5-40 U/L [employer] [address] [place] [address] Auction Block Clerk: Maryuri Warner M.D. CLIA# [id number] LIPID PROFILE Reviewed date:02/20/2024 01:10:08 PM Interpretation: Normal Performing Lab: Notes/Report: UNLESS OTHERWISE INDICATED, ALL TESTING PERFORMED AT: [facility] [place] [id number] CLIA NUMBER [id number] MED[employer]CK MINER BLASTING, MARYURI WARNER M.D. Cholesterol 218 <200 mg/dL Triglycerides 94 0-149 mg/dL HDL Cholesterol 50 >39 mg/dL LDL Cholesterol 148 <100 mg/dL Non HDL Cholesterol 168 <130 mg/dL Coronary Risk Ratio 4.36 <4.44 Comment for LIPID PROFILE Non-HDL Cholesterol is a better indicator for cardiovascular risk than LDL-Cholesterol for patients who have increased triglycerides or are non-fasting. Non-HDL Cholesterol: < 130 mg/dL (Optimal) < 160 mg/dL (Near Optimal/Above Optimal) LDL Cholesterol: < 100 mg/dL (Optimal) < 130 mg/dL (Near Optimal/Above Optimal) Coronary Risk Ratio: Average for females < 4.44 [place] [address] Auction Block Clerk: Maryuri Warner M.D. CLIA# [id number] HEMOGLOBIN A1C([facility]) Reviewed date:02/20/2024 01:10:08 PM Interpretation: Normal Performing Lab: Notes/Report: UNLESS OTHERWISE INDICATED, ALL TESTING PERFORMED AT: [place] [id number] CLIA NUMBER [id number] MED[employer] MINER BLASTING, MARYURI WARNER M.D. Hemoglobin A1c 7.8 4.2-5.6 % Mean Glucose Est 177 Comment for HEMOGLOBIN A1C [place] [employer] Guidelines for Hgb A1c: Prediabetes/Increased risk: 5.7 - 6.4 % Diagnosis of diabetes: >= 6.5 % (with confirmation or appropriate symptoms) Assay may be affected by hemoglobinopathies (sickle cell anemia, [place] disease, others) or artificially lowered by decreased red cell survival (hemolytic anemias, blood loss, etc.). Consider alternate testing or laboratory consultation. [facility] [address] [place] [address] Auction Block Clerk: Maryuri Warner M.D. CLIA# [id number] ALBUMIN/CREAT RATIO([facility]) Reviewed date:02/20/2024 01:10:08 PM Interpretation: Normal Performing Lab: Notes/Report: UNLESS OTHERWISE INDICATED, ALL TESTING PERFORMED AT: [place] [address] CLIA NUMBER [id number] MED[employer]CK MINER BLASTING, MARYURI WARNER M.D. Albumin Urine <0.2 Creatinine-Random Urine 7 28-217 mg/dL Albumin/Creat Ratio <29 <30 mg/[place] [address] Auction Block Clerk: Maryuri Warner M.D. CLIA# [id number] MAGNESIUM Reviewed date:02/20/2024 01:10:08 PM Interpretation: Normal Performing Lab: Notes/Report: UNLESS OTHERWISE INDICATED, ALL TESTING PERFORMED AT: [place] [address] CLIA NUMBER [id number] [employer] MINER BLASTING, MARYURI WARNER M.D. Magnesium 1.99 1.60-2.60 mg/[place] [address] Auction Block Clerk: Maryuri Warner M.D. CLIA# [id number] Reason For Referral Reason eval and treat Referral Organization E [facility] Referring Provider First Name Joni Referring Provider Last Name Timmy Referring Provider [facility] Referred Organization E [facility] Referred Provider Beba Baires Referred Address [address],[address], Referral Priority Routine Reason eval and treat Referral Organization E [facility] Referring Provider First Name Joni Referring Provider Last Name Timmy Referring Provider [facility] Referred Organization E [facility] Referred Provider Taty Giles Referred Address [address],[address], Referral Priority Routine Medications Medication SIG (Take, Route, Frequency, Duration) Notes Start Date End Date Status Lisinopril-hydroCHLOR Othiazide 10-12.5 MG 1 tablet Orally Once a day for 30 days Active Albuterol Sulfate HFA 108 (90 Base) MCG/ACT 2 puff as needed Inhalation as needed (prn) for 30 days Active Gabapentin 600 MG 1 tablet Orally three times a day for 30 days Active Lantus 100 UNIT/ML 35 units Subcutaneous twice a day for 85 days lantus solostar pen Active Spironolactone 25 MG 1 tablet Orally Once a day for 30 days Active Crestor 40 MG 1 tablet Orally Once a day for 30 days 06/12/2023 Active Omeprazole 40 MG 1 tablet Orally Once a day for 30 days Active Rivaroxaban 10 MG 1 tablet Orally Once a day for 90 days Not-Taking Sotalol HCl 80 MG 1 tablet Orally every 12 hrs for 30 days Active metFORMIN HCl 1000 MG 1 tablet with a meal Orally twice a day for 30 days Active Social History Tobacco Use: Social History Observation Description Date Details (start date - stop date) Never Smoker NA - NA Sex Assigned At : Social History Observation Description Sex Assigned At Female Sexual History: Question Answer Notes Had sex in the past 12 months (vaginal, oral, or anal) Yes with Men only Use protection? No Sexually transmitted disease prevention strategi es discussed Condoms Have you ever had a Sexually transmitted disease ? No Tobacco use other than smoking: Question Answer Notes Are you an other tobacco user? No Bipolar Screening Question Answer Notes 1. Some people have periods lasting several days when they feel much more excited and full of energy than usual. Their minds go too fast. They talk a lot. They are very restless or unable to sit still and they sometimes do things that are unusual for them, such as driving too fast or spending too much money. Have you ever had a period like this lasting several days or longer? No 2. Have you ever had a perio d lasting several days or longer when most of the time you were so irritable or grouchy that you either started arguments, shouted at people or hit people? No PRAPARE Question Answer Notes Date Completed/Updated: 03/24/2024 What is your current housing situation? I have h ousing Are you worried about losing your housing? No What is the highest level of school that you have finished? More than high school What is your current work situation? Oth erwise unemployed but not seeking work (ex. 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 Check all that apply I do not have problems meeting my needs Has lack of transportation k ept you from medical appointments, meetings, work or from getting things needed for daily living? No How often do you see or talk to people that you care about and feel close to? (For example: talking to friends on the phone, visiting friends or family, going to baptism or club meetings) More than 5 times a week How stressed are you? Stress is when someone feels tense, nervous, anxious, or can't sleep at night because their mind is troubled Not at all In the past year have you sp ent more than 2 nights in a row in a senior care, group home, chcf center, or juvenile correctional facility? No Are you a refugee? No What country are you from? [place] Do you feel physically and e motionally safe where you currently live? Yes In the past year, have you b een afraid of your partner or ex-partner? No PRAPARE Score: 3 SBIRT (2018 Edition) Question Answer Notes Patient refused/declined SBIRT screening at this time? No How many times in the past y ear have you used an illegal drug or used a prescription medication for non-medical reasons? 0 SCORE 0 3. How often do you have five or more drinks on one occasion? Never 1. How often do you have a drink containing alco hol? Never PHQ 9 Question Answer Notes Little interest or pleasure in doing things Not at all Feeling down, depressed, or hopeless Not at all Trouble falling or staying asleep, or sleeping t oo much Not at all Feeling tired or having little energy Not at all Poor appetite or overeating Not at all Feeling bad about yourself-o r that you are a failure or have let yourself or your family down Not at all Trouble concentrating on thi ngs, such as reading the newspaper or watching television Not at all Moving or speaking so slowly that other people could have noticed. Or the opposite, being so fidgety or restless that you have been moving around a lot more than usual Not at all Thoughts that you would be b lanny off , or of hurting yourself in some way Not at all Total Score 0 Intervention: Question Answer Notes Depression Screening Findings Negative Tobacco Control (Standard) Question Answer Notes Tobacco use: Nonsmoker Section Notes: Eneida Wilkerson 03/24/2024 11: 53:26 AM SCHOOL AGE PROGRAM TEACHER > Love, Shenicka 05/25/2022 08: 28:48 AM > Mckenzie, Jordenicka 07/09/2022 10: 38:09 AM > Be Rojassie 05/14/2023 10: 43:17 AM > CrystalBeAnisa 06/12/2023 10: 25:35 AM > GiuseppeAda hargrovehada 07/15/2023 09 :34:59 AM > Love, Shenicka 10/09/2023 11: 53:00 AM CDT > Giuseppe Roshada 11/14/2023 02 :24:33 PM CDT > Love, Jordenicka 01/11/2024 10 :57:10 AM CDT > Jorden Rinconicka 01/11/2024 10 :57:10 AM CDT > Eneida Wilkerson 02/19/2024 09 :36:47 AM SCHOOL AGE PROGRAM TEACHER > Problems Problem Type SNOMED Code ICD Code Onset Dates Problem Status W/U Status Risk Notes Problem 831081648 Neuropathy (G62.9) Active confirmed Problem 634852456 Mixed hyperlipidemia (E78.2) Active confirmed Problem 910829283 Gastro-esophagea l reflux disease without esophagitis (K21.9) Active confirmed Problem 55022412 Essential hypertension (I10) Active confirmed Problem 831233809 BMI 45.0-49.9, adult (Z68.42) Active confirmed Problem 35263145 Other chronic pa in (G89.29) Active confirmed Problem Diabetic peripheral neuropathy associated with type 2 diabetes mellitus (6634308737893) Type 2 diabetes mellitus with diabetic neuropathy, unspecified (E11.40) Active confirmed Problem 455550722 Other specified diabetes mellitus without complications (E13.9) Active confirmed Problem Thalassemia (48120756) Other thalassemias (D56.8) Active confirmed Problem 03723062 Postmenopausal bleeding (N95.0) Active confirmed Problem Long-term current use of insulin (167474149) 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 (Z79.4) Active confirmed Problem 866270937 Pacemaker (Z95.0) Active confirmed Problem 576455001 Gastroesophageal reflux disease without esophagitis (K21.9) Active confirmed Problem 412742594 Morbid obesity d ue to excess calories (E66.01) Active confirmed Problem 903563605 Diabetes mellitu s without complication (E11.9) Active confirmed Problem Atrial fibrillation (17354105) Atrial fibrillation, unspecified type (I48.91) Active confirmed Problem Chronic sinusitis (88625269) Sinusitis, unspecified chronicity, unspecified location (J32.9) Active confirmed Problem 81576494 Type 2 diabetes mellitus with hyperglycemia, without long-term current use of insulin (E11.65) Active confirmed Problem 824871883 Age-related nucl ear cataract of both eyes (H25.13) Active confirmed Problem Asthma without status asthmaticus (42090285) Asthma, unspecified asthma severity, unspecified whether complicated, unspecified whether persistent (J45.909) Active confirmed Problem 45599705 Allergic rhiniti s, unspecified seasonality, unspecified trigger (J30.9) Active confirmed Problem 96283440 Congestive heart failure, unspecified HF chronicity, unspecified heart failure type (I50.9) Active confirmed Problem 03680012 Coronary artery disease involving [place] heart, unspecified vessel or lesion type, unspecified whether angina present (I25.10) Active confirmed Problem Dementia (50838302) Dementia, unspecified dementia severity, unspecified dementia type, unspecified whether behavioral, psychotic, or mood disturbance or anxiety (F03.90) Active confirmed Problem 515508791 Angiopathy, diabetic (E11.51) Active confirmed Vital Signs Heart Rate 96 /min 02/19/2024 Eneida Wilkerson 02/19/2024 09:37:00 AM SCHOOL AGE PROGRAM TEACHER > Temperature 98.1 degrees Fahrenheit 02/19/2024 Chandra ins, Eneida 02/19/2024 09:37:00 AM SCHOOL AGE PROGRAM TEACHER > Respiratory Rate 16 /min 02/19/2024 Rock jaron 02/19/2024 09:37:00 AM SCHOOL AGE PROGRAM TEACHER > Oximetry 97 % 02/19/2024 Eneida Wilkerson 02/19/2024 09:37:00 AM SCHOOL AGE PROGRAM TEACHER > Blood pressure diastolic 76 mm Hg 02/19/2024 Dustin gins, Eneida 02/19/2024 09:37:00 AM SCHOOL AGE PROGRAM TEACHER > Height 62 in 02/19/2024 Rock, Eneida 02/19/2024 09:37:00 AM SCHOOL AGE PROGRAM TEACHER > Blood pressure systolic 123 mm Hg 02/19/2024 Chandra ins, Eneida 02/19/2024 09:37:00 AM SCHOOL AGE PROGRAM TEACHER > Weight 263.2 lbs 02/19/2024 Eneida Wilkerson 02/19/2024 09:37:00 AM SCHOOL AGE PROGRAM TEACHER > BMI 48.13 kg/m2 02/19/2024 Eneida Wilkerson 02/19/2024 09:37:00 AM SCHOOL AGE PROGRAM TEACHER > Encounters Encounter Location Date Provider Diagnosis E [facility] [address] [place] [address]/14/2023 Isabelle Meadows BMI 45.0-49.9, adult Z68.42 ; Acute non-recurrent pansinusitis J01.40 and Morbid obesity due to excess calories E66.01 E [facility] [address] [place] [address]/11/2024 Beba Baires Essential hypertensi on I10 ; Type 2 diabetes mellitus with hyperglycemia, without long-term current use of insulin E11.65 ; Bronchitis J40 and Acute cough R05.1 E [facility] [address] [place] [address]/29/2024 Taty Giles Right otitis media, unspecified otitis media type H66.91 ; Flu-like symptoms R68.89 and Sore throat J02.9 E [facility] [address] [place] [address]/19/2024 Joni Warner Essential hypertensi on I10 ; Type 2 diabetes mellitus with hyperglycemia, without long-term current use of insulin E11.65 ; Sinusitis, unspecified chronicity, unspecified location J32.9 ; Other chronic pain G89.29 ; Mixed hyperlipidemia E78.2 ; Gastroesophageal reflux disease without esophagitis K21.9 ; Congestive heart failure, unspecified HF chronicity, unspecified heart failure type I50.9 ; Neuropathy G62.9 ; Atrial fibrillation, unspecified type I48.91 ; Other thalassemias D56.8 ; Magnesium deficiency E61.2 ; Asthma, unspecified asthma severity, unspecified whether complicated, unspecified whether persistent J45.909 ; Morbid (severe) obesity due to excess calories E66.01 ; Body mass index [BMI] 45.0-49.9, adult Z68.42 and Medication refill Z76.0 E [facility] [address] [place] [address], [place] [address] 02/19/2024 Joni Shaver [facility] [address] [place] [address], [place] [address] 02/25/2024 Joni Shaver [facility] [address] [place] [address], [place] [address] 02/26/2024 Joni Shaver [facility] [address] [place] [address], [place] [address] 03/12/2024 Joni Warner [facility] [address] [place] [address] 03/17/2024 Joni Warner [facility] [address] [place] [address] 07/28/2024 Joni Shaver [facility] [address] [place] [address] 08/21/2024 Joni Warner Assessments Encounter Date Diagnosis (ICD Code) Assessment Notes Treatment Notes Treatment Clinical Notes Section Notes 11/14/2023 BMI 45.0-49.9, adult (ICD-10 - Z68.42) 11/14/2023 Acute non-recurrent pansinusitis (ICD-10 - J01.40) Provided with the medication to help with sinuses. Take medication consistently. Recommended informing us if not improved. 01/11/2024 Essential hypertension (ICD-10 - I10) stable, continue current meds 01/29/2024 Flu-like symptoms (ICD-10 - R68.89) FLu, strep, and COVID screens are all negative. Sinus cocktail shot today. Symptomatic relief only 01/29/2024 Right otitis media, unspecified otitis media type (ICD-10 - H66.91) Rocephin 1 gram IM. 02/19/2024 Essential hypertension (ICD-10 - I10) hypertension well controlled. Renal functions to be rechecked today both in urine and blood 02/19/2024 Type 2 diabetes mellitus with hyperglycemia, without long-term current use of insulin (ICD-10 - E11.65) diabetes last A1c was 7.4. She is on both insulin and metformin. We will recheck A1c 11/14/2023 Morbid obesity due to excess calories (ICD-10 - E66.01) 01/11/2024 Bronchitis (ICD-10 - J40) 01/11/2024 Type 2 diabetes mellitus with hyperglycemia, without long-term current use of insulin (ICD-10 - E11.65) follow up with PCP 01/29/2024 Sore throat (ICD-10 - J02.9) Strep screen in negative. Also got a strep culture. 02/19/2024 Sinusitis, unspecified chronicity, unspecified location (ICD-10 - J32.9) recently seen by Dr. Watson for sinusitis. We will go ahead and repeat antibiotic at her request 01/11/2024 Acute cough (ICD-10 - R05.1) warm honey lemon tea, rest and hydrate rtc for new or worsenining sx 02/19/2024 Other chronic pain (ICD-10 - G89.29) 02/19/2024 Mixed hyperlipidemia (ICD-10 - E78.2) hyperlipidemia on statin drug Crestor 40. We will check lipid and liver 02/19/2024 Gastroesophageal reflux disease without esophagitis (ICD-10 - K21.9) reflux disease being treated with sucralfate and omeprazole 02/19/2024 Congestive heart failure, unspecified HF chronicity, unspecified heart failure type (ICD-10 - I50.9) congestive heart failure followed by timber feller 02/19/2024 Neuropathy (ICD-10 - G62.9) 02/19/2024 Atrial fibrillation, unspecified type (ICD-10 - I48.91) atrial fib on sotalol 02/19/2024 Other thalassemias (ICD-10 - D56.8) 02/19/2024 Magnesium deficiency (ICD-10 - E61.2) magnesium deficiency we will recheck magnesium 02/19/2024 Asthma, unspecified asthma severity, unspecified whether complicated, unspecified whether persistent (ICD-10 - J45.909) history of asthma and uses albuterol when necessary 02/19/2024 Morbid (severe) obesity due to excess calories (ICD-10 - E66.01) 02/19/2024 Body mass index [BMI] 45.0-49.9, adult (ICD-10 - Z68.42) 02/19/2024 Medication refill (ICD-10 - Z76.0) 01/29/2024 Other 02/19/2024 Other she is up-to-da te on mammography. Patient had colonoscopy less than 5 years ago in [place] patient is made aware of laboratory testing. A1c is climbed from 7.4-7.8. Patient is encouraged to increase her Lantus insulin to 40 units twice a day and continue metformin. Non-HDL cholesterol is 168. She's been missing some rosuvastatin. Encouraged her to take her medication routinely. Patient was made aware Zetia could be added to her regimen if needed. Recommended rechecking lab within 3-4 months. Joni Warner 02/20/2024 08:37:16 AM SCHOOL AGE PROGRAM TEACHER >this dictation was not checked for mistakes in sales and merchandising associate Plan Of Treatment No Information Insurance Providers Payer Name Payer Address Payer Phone Subscriber Number Group Number Insured Name Patient Relationship to Insured Coverage Start Date Coverage End Date [employer] of [place] [employer] Attention Claims [address] [place] [id number] Julienne Bravo Self - patient is the insured Medications Administered Medication Instructions Date of Administration Dosage Notes Sinus Cocktail Bromphe 01/29/2024 10 mL Luis Alberto Felix 01/29/2024 05:05:41 PM SCHOOL AGE PROGRAM TEACHER > Rocephin 01/29/2024 1000 g Isma Dodd 01/29/2024 05:06:39 PM SCHOOL AGE PROGRAM TEACHER > DEXAMETHASONE 4 MG/ML- 01/29/2024 8 mg Luis Alberto Felix 01/29/2024 05:08:49 PM SCHOOL AGE PROGRAM TEACHER > Benadryl 01/29/2024 25 mL Isma Dodd 01/29/2024 05:09:17 PM SCHOOL AGE PROGRAM TEACHER > Medical (General) History Medical History History ICD Code hypertension diabetes mellitus hyperlipidemia Surgical History Surgery Date(Month/Year) x2 ablasion tubal ligation fibroid removal hernia cardiac pacemeker Hospitalization History Reason Date(Month/Year) same as surgical childbirth x3
--- OUTSIDE RECORDS SUMMARY | 2024-11-05 10:47 | XMS_ITS | Patient Health Record ---
Author Organization [facility] Address [address] [address] Care Team Providers Care Court Bailiff Or Sheriff Name Role Phone MAYA ORTEGA Unavailable [phone] ALLERGIES No Known Allergies REASON FOR REFERRAL No Information PROBLEMS Problem Type ICD Code Onset Dates Problem Status W/U Status Risk SNOMED Code Notes Problem Obesity (E66.9) Active confirmed Obesit y (185743973) Problem Cystocele, unspecified (N81.10) Active confirmed Cystocele (408694815) Problem Incontinence of urine in female (R32) Active confirmed Urinary incontinence (798918449) Problem Pelvic Pain (R10.2) Active confirmed Pain in pelvis (00486867) Problem Fibroids (D21.9) Active confirmed Fibro ids (56879990) Problem Screening for cervical cancer (Z12.4) Active confirmed Screening for malignant neoplasm of cervix (procedure) (289638845) Problem Abnormal uterine bleeding (N93.9) Active confirmed Abnormal ut erine bleeding (27332072144788) Problem PMB (postmenopausal bleeding) (N95.0) Active confirmed Postmenopausal bleeding (09397032) Problem Encounter to discuss test results (Z71.2) Active confirmed Evaluation o f test results (procedure) (592456244) Problem Urinary incontinence in female (R32) Active confirmed Urinary incontinence (060987789) PLAN OF TREATMENT Pending Test Test Name Order Date IGP, Aptima HPV, rfx 16/18,45 07/19/2022 Pathology Report 07/19/2022 Insurance Providers Payer Name Payer Address Payer Phone Subscriber Number Group Number Insured Name Patient Relationship to Insured Coverage Start Date Coverage End Date [employer] [place] [address] [place] [phone] [id number] Julienne Bravo Self - patient is the insured 3 MEDICAL (GENERAL) HISTORY Medical History History ICD Code Fibroid Post menopausal bleeding Surgical History Surgery Date(Month/Year) Tubal ligation Ablation UFE Hospitalization History Reason Date(Month/Year) As above
[2024-11-05] MEDS: ACETAMINOPHEN 325 MG TABLET 650 MG PO (10:57)
[2024-11-05] MEDS: HYDROcodone/acetaminophen (*CRX) 5-325 MG TABLET 1 TAB PO (10:57)
[2024-11-05 12:36] VITALS: BP 136/71; PULSE 66; RESP 15; O2SAT 98
--- NOTE | 2024-11-05 12:55 | ED_ITS ---
HPI - Back Pain/Injury General Chief Complaint: Back Pain/Injury Stated Complaint: neck and back pain Time Seen by Provider: 11/05/24 10:13 Source: patient Mode of arrival: ambulatory Limitations: no limitations History of Present Illness HPI Narrative: Patient is a 54-year-old female who presents the ED with report of right-sided neck and back pain. Patient reports having pain for the past 5 days. States he began initially in her right-sided neck and has been radiating down her right- sided back. Denies any fall or injury. Reports pain worse with movements. Tried taking a muscle relaxer last night and denied improvement. Denies chest pain, shortness of breath, numbness/tingling, weakness of extremities. Related Data Allergies Allergy/AdvReac Type Severity Reaction Status Date / Time empagliflozin (From Allergy Hives Verified 11/05/24 10:20 Jardiance) shellfish derived Allergy Swelling Verified 11/05/24 10:20 of Lip/Tongue/Throat Review of Systems Review of Systems: All systems reviewed & are unremarkable except as noted in HPI. All systems reviewed & are unremarkable except as noted in HPI and below Exam Narrative: GENERAL: Well appearing, morbidly obese with BMI of 47.6, non-toxic, in no acute distress. HEAD: Normocephalic, atraumatic. NECK: Mild TTP over R paraspinal cervical musculature into upper trapezius reg ion, reproducing pain. RESPIRATORY: Airway patent, respirations nonlabored. Clear to auscultation bilaterally, no rales, rhonchi, wheezing. CARDIOVASCULAR: Regular rate and rhythm. Radial pulses strong and easily palpable MUSCULOSKELETAL: Moves all extremities. No gross deformities. No significant thoracic midline spinal tenderness or tenderness throughout thoracic paraspinal musculature. Mild diffuse tenderness throughout lumbar region and right lumbosacral region. SKIN: Warm, dry, normal color. NEURO: A&O X3. Speech clear. Cranial nerves II-XII grossly intact. Steady gait. No ataxic movements. PSYCHIATRIC: Appropriate mood and affect. Normal interaction. Course Vital Signs Vital signs: Vital Signs Temperature 98.4 F 11/05/24 10:13 Pulse Rate 65 11/05/24 10:13 Respiratory Rate 18 11/05/24 10:13 Blood Pressure 140/82 11/05/24 10:13 Pulse Oximetry 100 11/05/24 10:13 Oxygen Delivery Room Air 11/05/24 10:13 Temperature 98.4 F 11/05/24 10:13 Pulse Rate 66 11/05/24 12:36 Respiratory Rate 15 11/05/24 12:36 Blood Pressure 136/71 11/05/24 12:36 Pulse Oximetry 98 11/05/24 12:36 Oxygen Delivery Room Air 11/05/24 10:13 MDM - Back Pain/Injury MDM Narrative Medical decision making narrative: Patient presented to ED with right-sided neck and back pain over the past 5 days . Denies any known injury. Vital signs stable upon arrival. Patient in no acute distress. Denied in the chest pain or shortness of breath. Low suspicion for cardiac or pulmonary etiology. Pain is very reproducible on exam, focal areas of tenderness along right cervical paraspinal musculature and trapezius region, right lumbar sacral region. Seems most consistent with musculoskeletal etiology. Worse with movement. Patient is otherwise neurovascularly intact. Denying any weakness, numbness, tingling of extremities. No evidence of cord compression or cauda equina. CT of cervical spine showing moderate arthritis changes, no central canal narrowing/stenosis. CT of lumbar/thoracic spine also with mild spondylosis changes. Patient was updated on imaging results, likelihood of musculoskeletal etiology. She is feeling improved with supportive therapy. Discussed steroid pack for anti-inflammatory affect. Patient does have history of diabetes. Discussed this with her and advised to continue to monitor blood sugars while taking steroids. She would like to proceed with steroid pack. Also discharge with muscle relaxers, lidocaine patches. Patient has [place] at home. Patient will be referred to neurosurgery for further evaluation, also recommended follow-up with PCP. Given strict return precautions. Patient in agreement with plan. Discharged in stable condition. Medical Records Attestation: I reviewed the patient's medical records. Imaging Data Attestation: I personally reviewed and interpreted this imaging study as follows: Radiologist's impression: ITS Impressions Cervical Spine CT 11/05/24 12:12 IMPRESSION: 1. Moderate facet osteoarthritis bilaterally at C7-T1 and multilevel mild bilateral facet and uncovertebral osteoarthritis throughout remainder the cervical spine. No stenosis of the osseous central canal or neural foramina. Thoracic/Lumbar Spine CT 11/05/24 12:38 IMPRESSION: 1. Mild thoracic and lumbar spondylosis. Discharge Plan Discharge Clinical Impression: Strain of cervical portion of right trapezius muscle Strain of lumbar region Qualifiers: Encounter type: initial encounter Qualified Code(s): S39.012A - Strain of muscle, fascia and tendon of lower back, initial encounter Patient Disposition: Home Condition: Stable Instructions: Antibiotic Form, Cervical Strain (ED), Acute Low Back Pain (ED), Lower Back Exercises (ED) Additional Instructions: Take steroids as prescribed. Continue Tylenol, your home [place] as needed for pain. You may use ice/heat, lidocaine patches to area of pain. Take muscle relaxers as needed and prescribed. Recommend taking these at night as they may cause sedation. Do not drive, operate heavy machinery, drink alcohol while on muscle relaxers as this may cause further sedation. Follow-up with your primary care doctor and/or neurosurgery for further evaluation. Call offices to make appointments. Return to the ED if you experience worsening or severe pain, fall or injury, numbness in arms or legs, going to the bathroom without meaning to, unable to keep down food or drink, chest pain, difficulty breathing, or any other symptoms of concern. Patient Language: Swedish Prescriptions: New methocarbamol 750 mg tablet 1,500 mg PO TID PRN (Reason: muscle spasm) Qty: 15 0RF lidocaine 5 % adhesive patch,medicated 1 patch topical DAILY Qty: 15 0RF Rx Instructions: leave on most painful area for up to 12 hrs methylprednisolone [Medrol (Arturo)] 4 mg tablets,dose pack See Rx Instructions PO .COMPLEX Qty: 21 0RF Rx Instructions: orally per package directions No Action acetaminophen 500 mg tablet 1,000 mg PO TID PRN (Reason: venancio) 7 Days Qty: 42 0RF Robitussin Cough-Chest Chau DM 10-200 mg capsule 1 tab-cap PO ONCE PRN (Reason: cough) Qty: 14 0RF Cepacol Sore Throat (casimiro-men) 15-2.6 mg lozenge 1 ariadne mucous membrane Q2-4H PRN (Reason: cough) Qty: 16 0RF Follow-up/Referrals: Parish Herndon MD [Physician, Neurosurgery] Referral Note: NEUROSURGERY UNKNOWN,DOCTOR [Primary Care Provider] Time of Disposition: 14:12
== END 2024-11-05 14:34 | disposition home or self-care (01) ==
PROVIDERS: Emergency Provider Physician Assistant
DX: S16.1XXA Strain of muscle, fascia and tendon at neck level, initial encounter (principal); S39.012A Strain of muscle, fascia and tendon of lower back, initial encounter; M47.816 Spondylosis without myelopathy or radiculopathy, lumbar region; M47.814 Spondylosis without myelopathy or radiculopathy, thoracic region; M47.812 Spondylosis without myelopathy or radiculopathy, cervical region; X58.XXXA Exposure to other specified factors, initial encounter
CPT/HCPCS: 72125; 72128; 72131; 96372; 99284; A9270; J2919